=== PATIENT | female | born 1970 | race Caucasian/White ===

== ENCOUNTER 2017-09-12 09:36 | Inpatient (IN) | payer OTHER ==
--- NOTE | 2017-09-07 17:15 | Pre-op HX & Phy Repo 2 SIG ---
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 The patient developed granulomatous colitis in 1988. She has never had Crohn's disease of the small intestine. In that year 1988 she underwent proctocolectomy and Freida ileostomy. Four years later in 1992, in [place], she underwent conversion of her conventional ileostomy to a Mulligan continent intestinal reservoir. In 1994 in [place] she underwent repair of a pouch fistula. Approximately one year ago, without any antecedent symptoms, she developed another fistula draining to the right of the stoma and inferior to the stoma. It drains a small amount of gas and fecal material, but sometimes a large amount pours out. She intubates her pouch frequently to empty it and control the fistula. She used to intubate three times per day, now at least six times per day. She has no difficulty inserting her drainage catheter during intubation. At the same time as the patient developed the onset of her enterocutaneous fistula, she also developed incontinence of stool and gas from her stoma and this is continuing to happen daily. The patient underwent CT scan of abdomen and pelvis on 07/24/2017. It revealed some prolapse through the stoma and a short-segment stricture just proximal to the pouch as well as chronic inflammation of the pouch. Also noted was a possible left hydrosalpinx. The patient has taken Humira started in November 2016, but discontinued in mid July because it provided no benefit at all. She uses occasional Imodium to try to limit her incontinence. The patient underwent an endoscopy on 09/28/2016 of her pouch revealing circumferential ulceration at the anastomosis of the small bowel to the pouch. The pouch itself and the ilium proximal to the anastomosis looked healthy without any other areas of inflammation. The patient is scheduled to undergo pouch endoscopy and preparation for surgery, which will include laparotomy and hopefully repair of the fistula and creation of a new valve with preservation of her Mulligan continent ileostomy pouch. MEDICATIONS: Occasional Imodium. ALLERGIES: Morphine causes severe pruritus and she is allergic to sulfa. OPERATIONS: Only the above including endometriosis of the right ovary found at the time of her colectomy in 1988. PHYSICAL EXAMINATION: GENERAL: The patient is 5 foot 3 inches, 123 pounds. [place] and will be examined upon arrival and dictated separately. IMPRESSION: 1. 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 2. Malfunctioning Mulligan continent ileostomy with incontinence. 3. History of granulomatous colitis. 4. STATUS POST MULTIPLE ABDOMINAL OPERATIONS: 1. Proctocolectomy and Freida ileostomy and right oophorectomy for endometriosis in 1988. 2. Mulligan continent ileostomy in 1992. 3. Laparotomy with repair of fistula involving Mulligan continent ileostomy in 1994. DISCUSSION: I have had a full discussion with the patient regarding the nature of her condition and the surgical options. These include repair of the fistula and creating a new valve preserving the existing pouch and possibly relocating the stoma to the left side. A second option is to resect her failed Mulligan continent ileostomy and create a new Mulligan pouch if she has enough intestine and there is no evidence of Crohn's disease. The third option is to resect her pouch and create a conventional Freida ileostomy again which she strongly wants to avoid as she had difficulties with her ileostomy appliance when she had this. The patient will be admitted and undergo insertion of a dual lumen PICC line, intravenous hydration concomitant with her bowel prep, insertion of a catheter into her pouch for continuous drainage, and preoperative intravenous antibiotics and subcutaneous heparin. I have had a full discussion with the patient regarding the nature of the surgery, options, and risks including bleeding, infection, injury to adjacent structures or organs, additional problems that could develop with her revised pouch or new pouch including slipped valve or fistula of pouch or valve or other issues with the pouch function. I will have another discussion in person when the patient arrives from [place] state and all questions will be answered. Dane Cancino M.D. DR: Yousif JOB#: [id number] CC: SAÚL
[~2017-09-12] VITALS: Ht 160 cm; Wt 56.7 kg
[2017-09-12 10:05] VITALS: BP 121/89
[2017-09-12 11:16] LABS: BASOPHILS % (AUTO) 2.1 % (0.0-2.0); EOSINOPHILS % (AUTO) 1.7 % (0.0-3.0); LYMPHOCYTES % (AUTO) 13.4 % (20.0-45.0); MEAN CORPUSCULAR HEMOGLOBIN 27.4 PG (27.0-31.0); MEAN CORPUSCULAR HGB CONC 31.2 G/DL (32.0-36.0); MEAN CORPUSCULAR VOLUME 88 FL (80-99); MEAN PLATELET VOLUME 7.8 FL (6.5-10.1); MONOCYTES % (AUTO) 14.1 % (1.0-10.0); NEUTROPHILS % (AUTO) 68.7 % (45.0-75.0); PLATELET COUNT 301 K/UL (150-450); RED BLOOD COUNT 5.27 M/UL (4.20-5.40); RED CELL DISTRIBUTION WIDTH 15.7 % (11.6-14.8); WHITE BLOOD COUNT 4.5 K/UL (4.8-10.8)
[2017-09-12 11:32] LABS: PROTHROMBIN TIME 10.7 SEC (9.30-11.50)
[2017-09-12 11:33] LABS: ALANINE AMINOTRANSFERASE 22 U/L (12-78); ALBUMIN/GLOBULIN RATIO 0.6 (1.0-2.7); ANION GAP 9 mmol/L (5-15); ASPARTATE AMINO TRANSFERASE 32 U/L (15-37); CARBON DIOXIDE 28 MMOL/L (21-32); CHLORIDE 101 MMOL/L (98-107); CREATININE 0.7 MG/DL (0.55-1.30); GLOMERULAR FILTRATION RATE > 60 mL/min (>60); POTASSIUM 3.7 MMOL/L (3.5-5.1); SODIUM 138 MMOL/L (136-145); TOTAL PROTEIN 8.1 G/DL (6.4-8.2)
[2017-09-12 11:59] VITALS: BP 115/82
[2017-09-12] MEDS: Neomycin Sulfate 500mg Tab ORAL SCH ×3 (12:11→20:09)
[2017-09-12 12:44] LABS: KETONES,URINE 2+ (NEGATIVE); LEUKOCYTE ESTERASE ,URINE 1+ (NEGATIVE); NITRITE,URINE NEGATIVE (NEGATIVE); PH,URINE 5 (4.5-8.0); PROTEIN,URINE NEGATIVE (NEGATIVE); UROBILINOGEN,URINE NORMAL MG/DL (0.0-1.0)
[2017-09-12 12:46] LABS: APPEARANCE,URINE SLIGHTLY CLOUDY
--- NOTE | 2017-09-12 12:53 | Pre-Procedure Note/Attestation ---
Pre-Procedure Note/Attestation Complete Prior to Procedure Planned Procedure: not applicable Procedure Narrative: Mulligan Continent Ileostomy pouch endoscopy Indications for Procedure Pre-Operative Diagnosis: Enterocutaneous fistula of Mulligan Continent Ileostomy and prolapse of nipple valve Attestation I attest that I discussed the nature of the procedure; its benefits; risks and complications; and alternatives (and the risks and benefits of such alternatives ), prior to the procedure, with the patient (or the patient's legal plastic products sales representative). I attest that, if there was a reasonable possibility of needing a blood transfusion, the patient (or the patient's legal plastic products sales representative) was given the [facility] standardized written summary, pursuant to the [place] Blood Safety Act ([place] Health and Safety Code # 1645, as amended). I attest that I re-evaluated the patient just prior to the surgery and that there has been no change in the patient's H&P, except as documented below:none ROLF NELSON Sep 12, 2017 12:53
[2017-09-12 13:02] LABS: BACTERIA,URINE FEW /HPF; SQUAMOUS EPITHELIAL CELL,UR FEW /LPF (NONE/OCC)
--- NOTE | 2017-09-12 13:02 | General Progress Note ---
Progress Note Progress Note H&P dictated. Examination reveals total prolapse of the Mulligan Continent Ileostomy pouch nipple valve, and 2 fistula openings draining stool adjacent to the stoma (6:00 and 9:00). Pouch endoscopy shows healthy pouch and afferent bowel anastomosis. WBC 4500 Hgb 14.5 Platelets 301,000 Albumin low 3.0 Ferritin 55 (8-388) Plan: 28Foley to Mulligan pouch to continuous drainage; PIC line; bowel prep; IV hydration Iron panel/B12 level in AM pre-op IV antibiotics and SQ heparin pre-op Full discussion with patient. ROLF NELSON Sep 12, 2017 13:02
--- NOTE | 2017-09-12 14:50 | Anethesia Preoperative Eval ---
Anesthesia Pre-op PMH/ROS General Date of Evaluation: Sep 12, 2017 Time of Evaluation: 14:14 Anesthesiologist: Harry ASA Score: ASA 2 Mallampati Score Class I : Soft palate, uvula, fauces, pillars visible Class II: Soft palate, uvula, fauces visible Class III: Soft palate, base of uvula visible Class IV: Only hard plate visible Mallampati Classification: Class I Surgeon: Barak Diagnosis: Malfxn Mulligan Continent Ileostomy pouch Surgical Procedure: Mulligan Continent Ileostomy pouch Anesthesia History: none Family History: no anesthesia problems Allergies: Coded Allergies: MORPHINE (Verified Allergy, Intermediate, pruritis, 09/12/17) SULFA (SULFONAMIDE ANTIBIOTICS) (Verified Allergy, Intermediate, vomiting , 09/12/17) Medications: see eMAR Past Medical History Gastrointestinal/Genitourinary: Reports: other - Crohns Disease Neurologic/Psychiatric: Reports: depression/anxiety PSxH Narrative: Multiple bowel Sx Anesthesia Pre-op Phys. Exam Physician Exam Last Vital Signs Date Time Temp Pulse Resp B/P (MAP) Pulse Ox O2 Delivery O2 Flow Rate FiO2 09/12/17 13:11 98.0 09/12/17 11:59 101 20 115/82 94 Room Air Constitutional: NAD Neurologic: CN 2-12 intact Cardiovascular: RRR Respiratory: CTA Gastrointestinal: S/NT/ND Airway Exam Mallampati Score: Class I MO: full ROM: full Teeth: intact Anesthesia Pre-op A/P Labs Hematology Test 09/12/17 10:50 White Blood Count 4.5 K/UL (4.8-10.8) L Red Blood Count 5.27 M/UL (4.20-5.40) Hemoglobin 14.5 G/DL (12.0-16.0) Hematocrit 46.3 % (37.0-47.0) Mean Corpuscular Volume 88 FL (80-99) Mean Corpuscular Hemoglobin 27.4 PG (27.0-31.0) Mean Corpuscular Hemoglobin Concent 31.2 G/DL (32.0-36.0) L Red Cell Distribution Width 15.7 % (11.6-14.8) H Platelet Count 301 K/UL (150-450) Mean Platelet Volume 7.8 FL (6.5-10.1) Neutrophils (%) (Auto) 68.7 % (45.0-75.0) Lymphocytes (%) (Auto) 13.4 % (20.0-45.0) L Monocytes (%) (Auto) 14.1 % (1.0-10.0) H Eosinophils (%) (Auto) 1.7 % (0.0-3.0) Basophils (%) (Auto) 2.1 % (0.0-2.0) H Coagulation Test 09/12/17 10:50 Prothrombin Time 10.7 SEC (9.30-11.50) Prothromb Time International Ratio 1.0 (0.9-1.1) Activated Partial Thromboplast Time 32 SEC (23-33) Chemistry Test 09/12/17 10:50 Sodium Level 138 MMOL/L (136-145) Potassium Level 3.7 MMOL/L (3.5-5.1) Chloride Level 101 MMOL/L (98-107) Carbon Dioxide Level 28 MMOL/L (21-32) Anion Gap 9 mmol/L (5-15) Blood Urea Nitrogen 3 mg/dL (7-18) L Creatinine 0.7 MG/DL (0.55-1.30) Estimat Glomerular Filtration Rate > 60 mL/min (>60) Glucose Level 111 MG/DL (74-106) H Calcium Level 9.0 MG/DL (8.5-10.1) Ferritin 55 NG/ML (8-388) Total Bilirubin 0.6 MG/DL (0.2-1.0) Aspartate Amino Transf (AST/SGOT) 32 U/L (15-37) Alanine Aminotransferase (ALT/SGPT) 22 U/L (12-78) Alkaline Phosphatase 107 U/L (46-116) Total Protein 8.1 G/DL (6.4-8.2) Albumin 3.0 G/DL (3.4-5.0) L Globulin 5.1 g/dL Albumin/Globulin Ratio 0.6 (1.0-2.7) L Urine Test Test 09/12/17 12:24 Urine HCG, Qualitative Negative Risk Assessment & Plan Assessment: ASA 2 Plan: GA Status Change Before Surgery: No Pre-Antibiotics Drug: Shaheen Reed MD Sep 12, 2017 14:50
--- NOTE | 2017-09-12 15:00 | Pre-op HX & Phy Repo 2 SIG ---
DATE OF ADMISSION: 09/12/2017 HISTORY: The patient has now [place] and is examined. PHYSICAL EXAMINATION: GENERAL: She is well developed and well nourished, in no distress. VITAL SIGNS: Her heart rate is slightly elevated at 100, blood pressure 121/89, afebrile, 5 foot 3 inches and approximately 123 pounds. HEENT: Within normal limits except for some missing dentition. LUNGS: Clear. HEART: Regular rhythm. BREASTS: Without masses. ABDOMEN: Soft and flat. There is a long midline scar. The stoma of the Mulligan continent ileostomy pouch is in the right lower quadrant with complete prolapse or eversion of the nipple valve. There are two fistula tract openings, one at 6 o'clock just inferior to the stoma and one at 9 o'clock at the lateral angle of the stoma. These are draining small amounts of stool. There is a mild parastomal hernia, but no incisional hernia. Pelvic has been negative per primary care physician recently. RECTAL: Status post proctectomy. EXTREMITIES: Without edema or varicosities. Pulses 3+ femoral to pedal bilaterally. NEUROLOGIC: Physiologic. IMPRESSION: 1. Enterocutaneous fistula involving Mulligan continent ileostomy pouch 2. Malfunctioning Mulligan continent ileostomy with incontinence and complete prolapse of the nipple valve. 3. Parastomal hernia of Mulligan continent ileostomy. 4. History of granulomatous colitis. 5. Status post multiple abdominal operations. 5.1. Proctocolectomy and Freida ileostomy (and right oophorectomy for endometriosis) in 1988. 5.2. Mulligan continent ileostomy in 1992. 5.3. Laparotomy with repair of fistula involving Mulligan continent ileostomy in 1994. PLAN AND DISCUSSION: The patient has undergone endoscopy of her Mulligan pouch without requiring any anesthesia or sedation. It shows that the pouch is healthy without any inflammation or ulcerations. The anastomosis of the afferent ilium to the pouch appears normal. Retroflex views revealed absence of the nipple valve due to it being in a completely prolapsed position external to the stoma. It could not be manually reduced but was not edematous or ischemic. The patient underwent insertion of an indwelling Mulligan pouch catheter to continuous gravity drainage and will have insertion of a dual lumen PICC line. She will receive intravenous hydration concomitant to her bowel prep and continuous decompression of her continent ileostomy pouch. She will receive intravenous antibiotics and preoperative subcutaneous heparin. In view of her laboratory studies revealing a low serum albumin of 3 and a very low ferritin of 55, normal range 8 to 388, despite her not being anemic, she will likely require replacement with Venofer postoperatively and may need total parenteral nutrition to support the healing process depending on what is performed. I have had a full discussion with the patient regarding the nature of her conditions and the surgical options. These include takedown of the pouch with repair of the fistula and creation of a new valve and stoma possibly relocating to the left side with repair of the fistula tracts. The second option will be to resect her Mulligan continent ileostomy and create a new pouch if she has enough intestine and there is no evidence of Crohn's disease. The third option discussed is resection of her pouch with creation of a conventional ileostomy again, which she strongly wants to avoid because of her difficulties with it years ago. I have had a full discussion with the patient regarding the nature of the surgery, alternatives and risks including bleeding, infection, injury to adjacent structures or organs, additional problems that could develop with the revised pouch or a newly created pouch including recurrent fistula or slipped valve or other issues that could require additional surgery. All questions have been answered. The patient understands and agrees to proceed. Dane Cancino M.D. DR: BENNY JOB#: [id number] CC: SAÚL
--- NOTE | 2017-09-12 15:32 | Diagnostic Imaging Report ---
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 The left upper extremity was prepped with alcohol. All elements of maximal sterile barrier technique were followed including usage of a cap, mask, sterile gown, sterile gloves, hand hygiene and a large sterile sheet. Sonographic evaluation of the upper extremity was performed demonstrating a patent and compressible brachial vein. Access was obtained under real-time ultrasound guidance and digital image was saved and archived. An .018 wire was introduced. Needle exchanged for a 5 Palauan peel-away sheath. Measurements were obtained. A 5 Palauan dual-lumen Power PICC line catheter was cut to 15 cm and introduced over the wire. Peel-away sheath and wire were removed.Catheter was secured to the skin using 2-0 Prolene suture. Both ports aspirate and flush easily. Fluoroscopic Images show the tip of the catheter in the axillary vein. Attempts at passing the catheter beyond this were unsuccessful. Impression: Successful placement of an upper extremity midline catheter
--- NOTE | 2017-09-12 15:33 | Diagnostic Imaging Report ---
Indication: Dyspnea Comparison: None A single view chest radiograph was obtained. Findings: Bilateral pleural effusions are suspected worse on the left. Short catheter noted in the left upper arm with the tip terminating in the axillary vein. Bones are slightly osteopenic. Heart size is normal. The aortic arch appears to be right-sided. Findings may be confirmed by cross-sectional imaging. Impression: Bilateral pleural effusions larger on the left. Suspected right aortic arch.
--- NOTE | 2017-09-12 15:41 | General Progress Note ---
Progress Note Progress Note CXR reveals small bilateral pleural effusions ?? etiology PIC line did not go centrally and I was not called and it was left in axillary vein - discussed with Radiologist. May need new PIC line post-op if TPN is needed ROLF NELSON Sep 12, 2017 15:41
--- NOTE | 2017-09-12 15:45 | Procedure Note ---
DATE OF PROCEDURE: 09/12/2017 ENDOSCOPY PROCEDURE REPORT ENDOSCOPIST: Dane Cancino M.D. PRE-ENDOSCOPY DIAGNOSES: 1. Enterocutaneous fistula involving Mulligan continent ileostomy pouch 2. Malfunctioning Mulligan continent ileostomy with incontinence and valve prolapse. 3. History of granulomatous colitis. 4. Status post multiple abdominal operations including proctocolectomy and Freida ileostomy in 1988, Mulligan continent ileostomy in 1992, and repair of fistula involving Mulligan pouch in 1994. POST-ENDOSCOPY DIAGNOSES: 1. Enterocutaneous fistula involving Mulligan continent ileostomy pouch 2. Malfunctioning Mulligan continent ileostomy with incontinence and valve prolapse. 3. History of granulomatous colitis. 4. Status post multiple abdominal operations including proctocolectomy and Freida ileostomy in 1988, Mulligan continent ileostomy in 1992, and repair of fistula involving Mulligan pouch in 1994. ENDOSCOPY PERFORMED: Mulligan continent ileostomy pouch endoscopy. FINDINGS: Complete prolapse of the valve through the stoma with two janina- stomal fistula tracts and a normal-appearing pouch. DESCRIPTION OF PROCEDURE: The patient was positioned supine in the GI lab without requiring any anesthesia or sedation. First, I inserted a 28-Haitian Cheung through the everted prolapsed valve into the pouch and irrigated it clear. I then used a GIF-P140 endoscope and negotiated the tract into the pouch. The pouch was distensible and the mucosa was normal with no significant inflammation or ulcerations. The afferent anastomosis appeared normal as did the afferent bowel for a limited distance. Retroflex views revealed fistula tract openings adjacent to the base of the valve but no valve because it has prolapsed through the stoma. After removing the endoscope, I reinserted the 28-Haitian Cheung and emptied the contents of the pouch, secured it to the skin with tape, and connected it to a gravity drainage bag. The patient will be prepared for surgery. The patient tolerated the endoscopy well. Dane Cancino M.D. DR: HIEU JOB#: [id number] CC: SAÚL
[2017-09-12 16:14] VITALS: BP 116/82
--- NOTE | 2017-09-12 16:47 | Diagnostic Imaging Report ---
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 The right upper extremity was prepped with alcohol. All elements of maximal sterile barrier technique were followed including usage of a cap, mask, sterile gown, sterile gloves, hand hygiene and a large sterile sheet. Sonographic evaluation of the upper extremity was performed demonstrating a patent and compressible brachial vein. Access was obtained under real-time ultrasound guidance (with utilization of sterile gel and sterile probe cover) and digital image was saved and archived. An .018 wire was introduced. Needle exchanged for a 5 Gabonese peel-away sheath. Measurements were obtained. A 5 Gabonese dual-lumen Power PICC line catheter was cut to 35 cm and introduced over the wire. Peel-away sheath and wire were removed.Catheter was secured to the skin using 2-0 Prolene suture. Both ports aspirate and flush easily. Fluoroscopic Images show distal tip in the superior vena cava. Total fluoroscopic time 0.9 minutes. Impression: Successful placement of an upper extremity PICC line catheter
[2017-09-12] MEDS ORDERED: D5 1/2NS w/KCl 20mEq 1,000 ML IV SCH (18:00)
[2017-09-12 20:00] VITALS: BP 115/82
[2017-09-12] MEDS: D5 1/2NS w/KCl 20mEq 1,000 ML IV SCH (20:00)
[2017-09-12] MEDS ORDERED: Zolpidem 5mg tab ORAL PRN (21:00)
[2017-09-13] VITALS (13 sets, daily range): BP systolic 96–115; BP diastolic 65–81
[2017-09-13] MEDS: Ampicillin/Sulbactam Sod 3 GM in NS 110 ML IV SCH ×4 (00:03→18:23)
[2017-09-13 05:24] LABS: IRON 22 ug/dL (50-175); TOTAL IRON BINDING CAPACITY 244 ug/dL (250-450)
[2017-09-13] MEDS ORDERED: Heparin 5000 units/ml inj SUBQ ONE ×2 (05:30)
[2017-09-13] MEDS: D5 1/2NS w/KCl 20mEq 1,000 ML IV SCH (05:32)
[2017-09-13] MEDS ORDERED: NeoSporin Gu Irrig 1ml Amp IRRIG ONE (07:06)
[2017-09-13] MEDS ORDERED: Bacitracin 50000 Units Vial ONE (07:06)
--- NOTE | 2017-09-13 07:14 | Pre-Procedure Note/Attestation ---
Pre-Procedure Note/Attestation Complete Prior to Procedure Planned Procedure: not applicable Procedure Narrative: Repair of enterocutaneous fistula and prolapsed valve of Mulligan Continent Ileostomy, possible new Mulligan Pouch, possible Freida ileostomy Indications for Procedure Pre-Operative Diagnosis: Enterocutaneous fistula of Mulligan Continent Ileostomy and prolapse of nipple valve Attestation I attest that I discussed the nature of the procedure; its benefits; risks and complications; and alternatives (and the risks and benefits of such alternatives ), prior to the procedure, with the patient (or the patient's legal guest experience representative). I attest that, if there was a reasonable possibility of needing a blood transfusion, the patient (or the patient's legal guest experience representative) was given the [place] [facility] standardized written summary, pursuant to the [place] Blood Safety Act ([place] Health and Safety Code # 1645, as amended). I attest that I re-evaluated the patient just prior to the surgery and that there has been no change in the patient's H&P, except as documented below:none ROLF NELSON Sep 13, 2017 07:14
[2017-09-13] MEDS ORDERED: Metoclopramide 10mg/2ml Inj ONE ×2 (07:27)
[2017-09-13] MEDS ORDERED: LR 1000ml ONE ×2 (07:27)
[2017-09-13] MEDS ORDERED: Midazolam 2mg/2ml Inj ONE ×2 (07:27)
[2017-09-13] MEDS ORDERED: Propofol 200mg/20ml IV ONE ×2 (07:27)
[2017-09-13] MEDS ORDERED: fentaNYL 100 mcg/2 mL IV ONE ×2 (07:27)
[2017-09-13] MEDS ORDERED: Zemuron 50mg/5ml Inj IV ONE ×2 (07:27)
[2017-09-13] MEDS ORDERED: Sterile Water Irrig 1000ml IRRIG ONE ×2 (07:27)
[2017-09-13] MEDS ORDERED: Dexamethasone 4mg/ml vial ONE ×2 (07:27)
[2017-09-13] MEDS ORDERED: NS Irrig 1000ml ONE ×3 (07:27→10:56)
[2017-09-13] MEDS ORDERED: Lidocaine 1% MPF 10mg/ml 5ml ONE ×2 (07:27)
[2017-09-13] MEDS ORDERED: LORazepam Inj 2mg/ml 1ml IV PRN (08:15)
[2017-09-13] MEDS ORDERED: Metoclopramide 10mg/2ml Inj IVP PRN (08:15)
[2017-09-13] MEDS ORDERED: Midazolam 2mg/2ml Inj IVP PRN (08:15)
[2017-09-13] MEDS ORDERED: Hydromorphone 0.5mg/0.5ml inj IVP PRN (08:15)
[2017-09-13] MEDS ORDERED: fentaNYL 100 mcg/2 mL IV PRN (08:15)
[2017-09-13] MEDS ORDERED: DiphenhydrAMINE 50mg/ml Inj IVP PRN ×2 (08:15→12:30)
[2017-09-13] MEDS ORDERED: LR 1000ml 1,000 ML IVLG SCH (08:15)
[2017-09-13] MEDS ORDERED: NS 500ML IV ONE (10:56)
[2017-09-13] MEDS ORDERED: Tubing IV Secondary IV ONE (10:56)
--- NOTE | 2017-09-13 11:15 | Immediate Post-Op Evaluation ---
Immediate Post-Op Evalulation Immediate Post-Op Evalulation Procedure: Revision barnettt continent ileostomy Date of Evaluation: Sep 13, 2017 Time of Evaluation: 11:14 IV Fluids: 2.6 Blood Products: 0 Estimated Blood Loss: 100 Urinary Output: 300 Blood Pressure Systolic: 96 Blood Pressure Diastolic: 69 Pulse Rate: 119 Respiratory Rate: 15 O2 Sat by Pulse Oximetry: 92 Temperature (Fahrenheit): 98.6 Pain Score (1-10): 0 Nausea: No Vomiting: No Complications 0 Patient Status: awake, reacts, patent, none Hydration Status: adequate Drug: On floor JOSH Parker M.D. Sep 13, 2017 11:15
--- NOTE | 2017-09-13 11:16 | Brief Operative Note ---
Immediate Post Operative Note Operative Note Pre-op Diagnosis: Enterocutaneous fistula of Mulligan Continent Ileostomy and prolapse of nipple valve Procedure: resection of Mulligan continent ileostomy with fistula, creation of Freida ileostomy Post-op Diagnosis: same + shortened small intestine (11 feet) Post-op Diagnosis: same as pre-op Findings: consistent w/pre-op dx studies Surgeon: issac Process Safety Engineering Technologist: roxanna Anesthesiologist: mayra Specimen: yes - Mulligan pouch Complications: none Condition: stable Fluids: see anesthesia record Estimated Blood Loss: volume - 100ml Drains: ANDREW - in abdominal wall at prior stoma/fistula site Implant(s) used?: No ROLF NELSON Sep 13, 2017 11:16
[2017-09-13] MEDS ORDERED: PCA HYDROmorphone 1mg/ml 30 ML IV PRN (12:15)
[2017-09-13] MEDS ORDERED: Rate Change PCA 1 Each MISC PRN (12:15)
[2017-09-13] MEDS ORDERED: Naloxone 0.4mg/ml Inj IVP PRN (12:15)
[2017-09-13] MEDS ORDERED: Acetaminophen 650mg/20.3ml ORAL PRN (12:30)
[2017-09-13] MEDS ORDERED: PCA Education Pamphlet MISC ONE (14:00)
[2017-09-13] MEDS: D5 1/4NS w/KCl 20mEq 1,000 ML IV SCH ×2 (15:33→23:20)
[2017-09-13] MEDS: LORazepam 1mg tab SL PRN ×2 (15:36→21:26)
--- NOTE | 2017-09-13 15:43 | Cardiology Report ---
APPROVED REPORT EKG Measurement Heart [id number] Normal sinus rhythm Normal ECG
--- NOTE | 2017-09-13 16:22 | General Progress Note ---
Progress Note Progress Note Awake and alert, VSS with P 100. 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 Imp. ROLF Kulkarni Sep 13, 2017 16:22
[2017-09-13] MEDS: PCA shift volume MISC SCH (19:27)
--- NOTE | 2017-09-13 20:30 | Operative Note - Dictated ---
DATE OF OPERATION: 09/13/2017 SURGEON: Dane Cancino M.D. NOTEREADER: Herman Eng M.D. ANESTHESIOLOGIST: Carole Grant M.D. TYPE OF ANESTHESIA: General endotracheal. PREOPERATIVE DIAGNOSES: 1. 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 2. 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 3. History of granulomatous colitis. 4. Status post multiple abdominal operations. 4.1. Proctocolectomy and Freida ileostomy in 1988. 4.2. Mulligan continent ileostomy in 1992. 4.3. Laparotomy with repair of fistula involving Mulligan continent ileostomy in 1994. POSTOPERATIVE DIAGNOSES: 1. 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 2. 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 3. History of granulomatous colitis. 4. Status post multiple abdominal operations. 4.1. Proctocolectomy and Freida ileostomy in 1988. 4.2. Mulligan continent ileostomy in 1992. 4.3. Laparotomy with repair of fistula involving Mulligan continent ileostomy in 1994. OPERATION PERFORMED: Resection of Mulligan continent ileostomy and creation of conventional Freida ileostomy. DESCRIPTION OF PROCEDURE: The patient was taken to the operating room and under general endotracheal anesthesia with sequential compression device stockings and Cheung catheter in place and having received intravenous antibiotics and subcutaneous heparin, the patient was prepped and draped in the usual fashion. The stoma of the Mulligan continent ileostomy pouch was in the right lower quadrant with complete eversion / prolapse of the nipple valve. There were 2 fistula sites medially adjacent to the stoma one at 6 o'clock and one at 9 o'clock. Lacrimal duct probes were placed through the fistulous openings and went directly into the ileal reservoir pouch. The stoma with the prolapsed valve was covered with an antibiotic soaked lap sponge. Previous midline incision was reopened from just above the umbilicus to the pubis excising the skin scar. There were no adhesions to the anterior abdominal wall and minimal interloop adhesions. The pouch was adherent to the bladder and parietes in the pelvis. The small bowel was mobilized from ligament of Treitz down to the pouch and the pouch was mobilized out of the pelvis protecting the bladder and ureters. It was clear that to fully mobilize the pouch, I had to take down the stoma. A transversely oriented elliptical incision was made dissecting through the abdominal wall and bringing the stoma with the prolapsed valve into the abdomen. A 28-Armenian Cheung catheter was placed through the prolapsed valve into the pouch and the afferent bowel manually occluded. The pouch was distended with 400 mL of saline and it was clear there was a stricture at the mid pouch. The pouch was decompressed and the catheter was removed. The mobilization of the stoma and access segment opened the fistula tract clearly into the pouch. Because of all the inflammation and scarring due to the fistulae, it was clearly not possible to repair the two fistulae and reconstruct the valve. In view of the stricture barely admitting a fingertip in the mid pouch, I decided to resect just proximal to this dividing the narrowed pouch with the JOSE ALBERTO-75 and dividing the mesentery close to the bowel ligating with #0 silk. The pouch was taken off the field and oriented for the pathologist. There was no evidence of Crohn disease of the small intestine, but there was not very much small intestine evident. I measured it from ligament of Treitz to the remaining segment of the pouch and there was approximately 11 feet of small bowel. This precluded creating a new pouch and I felt that to create a new pouch, we would run the risk of it failing at some point and needing to be resected leaving the patient with a likely short-bowel syndrome. Accordingly, it was evident that the patient would require a conventional Freida ileostomy. The small portion of retained pouch was preserved and the bowel leading to it measured approximately 10 cm and was able to be fashioned into a conventional stoma. First, I closed the right lower quadrant abdominal wall defect having placed a Betadine soaked Ray-Emerson into the subcutaneous tissues of the abdominal wall during the bowel dissection. I closed the fascia with interrupted, inverted [id number] #0 Prolene sutures in a longitudinal orientation. I placed a small Camron-Tavarez drain through a separate stab wound inferior and sutured to the skin with a 2-0 silk because of the potential space at the location presence of the fistula. Subcutaneous tissues including deep dermal tissues were closed with interrupted 2-0 Vicryl and skin closed with brannon and interrupted vertical mattress 2-0 nylon sutures. Then, at an appropriate location high in the left lower quadrant, a circular disc of skin was excised and with a cruciate incision in the fascia a two-fingerbreadth abdominal wall hiatus was created. I could not make the stoma on the right side because of the prior continent ileostomy stoma abdominal wall closure precluding placement on that side as this stoma was higher than usual. The stapled end of the ileum was brought through the left lower quadrant abdominal wall hiatus and the ileum anchored to the peritoneum with two sutures of 3-0 silk. Then the staple line excised and the stoma primarily matured with interrupted 2-0 chromic to create an everted Freida ileostomy. It was well perfused and the mesentery was oriented cephalad. The abdominal cavity was carefully inspected and hemostasis was secure. The upper abdomen was fairly well sealed from adhesions and prior gastrostomy, but the liver and gallbladder appeared normal. The uterus was somewhat atrophic and the adnexae obscured by scar. Throughout the procedure, the wound edges had been protected with antibiotic soaked lap sponges and antibiotic irrigation was used throughout the procedure. The midline fascia was closed in one layer with continuous #1 Prolene starting at both ends and inverting the knots, subcutaneous tissues again irrigated with antibiotic solution, and the skin closed with brannon. An ileostomy appliance was cut to fit and placed over the stoma followed by dry sterile dressings. Final sponge and needle counts were correct. The patient tolerated the procedure well and left the operating room in stable condition. Dane Cancino M.D. DR: HIEU JOB#: [id number] CC: [id number]
[2017-09-14] VITALS: BP 124/88
[2017-09-14] MEDS: Ampicillin/Sulbactam Sod 3 GM in NS 110 ML IV SCH ×4 (00:09→17:30)
[2017-09-14] MEDS: LORazepam 1mg tab SL PRN ×3 (01:31→21:51)
[2017-09-14 04:00] VITALS: BP 112/87
[2017-09-14 04:34] LABS: MEAN CORPUSCULAR HEMOGLOBIN 27.7 PG (27.0-31.0); MEAN CORPUSCULAR VOLUME 96 FL (80-99); PLATELET COUNT 188 K/UL (150-450); RED BLOOD COUNT 3.44 M/UL (4.20-5.40); RED CELL DISTRIBUTION WIDTH 16.6 % (11.6-14.8); WHITE BLOOD COUNT 8.1 K/UL (4.8-10.8)
[2017-09-14 04:51] LABS: ANION GAP 7 mmol/L (5-15); CARBON DIOXIDE 18 MMOL/L (21-32); CHLORIDE 108 MMOL/L (98-107); CREATININE 0.4 MG/DL (0.55-1.30); GLOMERULAR FILTRATION RATE > 60 mL/min (>60); POTASSIUM 5.2 MMOL/L (3.5-5.1); SODIUM 133 MMOL/L (136-145)
[2017-09-14 05:17] LABS: CALCIUM < 5.0 MG/DL (8.5-10.1)
[2017-09-14 06:16] LABS: BASOPHILS % (AUTO) 0.7 % (0.0-2.0); MEAN CORPUSCULAR HEMOGLOBIN 26.9 PG (27.0-31.0); MEAN CORPUSCULAR HGB CONC 29.7 G/DL (32.0-36.0); MEAN CORPUSCULAR VOLUME 90 FL (80-99); MEAN PLATELET VOLUME 6.5 FL (6.5-10.1); MONOCYTES % (AUTO) 13.5 % (1.0-10.0); NEUTROPHILS % (AUTO) 81.8 % (45.0-75.0); PLATELET COUNT 258 K/UL (150-450); RED BLOOD COUNT 4.37 M/UL (4.20-5.40); RED CELL DISTRIBUTION WIDTH 15.5 % (11.6-14.8); WHITE BLOOD COUNT 9.4 K/UL (4.8-10.8)
[2017-09-14 06:23] LABS: ANION GAP 8 mmol/L (5-15); CALCIUM 7.9 MG/DL (8.5-10.1); CARBON DIOXIDE 28 MMOL/L (21-32); CHLORIDE 103 MMOL/L (98-107); CREATININE 0.6 MG/DL (0.55-1.30); GLOMERULAR FILTRATION RATE > 60 mL/min (>60); SODIUM 139 MMOL/L (136-145)
[2017-09-14] MEDS: PCA shift volume MISC SCH ×2 (07:00→19:17)
[2017-09-14 08:00] VITALS: BP 112/81
[2017-09-14] MEDS ORDERED: Dextrose 10% 1,000 ML IV PRN (08:30)
--- NOTE | 2017-09-14 08:35 | General Progress Note ---
Progress Note Progress Note AVSS with mild tachycardia. No dyspnea. Sleepy and mentally cloudy Chest - decreased expansion Cor - reg rhythm Abdomen distended, stoma pink, incisions clean, scant ANDREW drainage Urine 490/ 12 hrs Ileostomy 10cc bloody Hgb down 11.7 BMP - wnl Iron (pre-op) 22 (50-175) B12 991 Imp. Ileus Atelectasis Malnutrition present on admission Iron deficiency present on admission Plan: NPO Pulmonary toilet TPN Venofer D/C basal infusion of RN ASSESSMENT ROLF NELSON Sep 14, 2017 08:35
[2017-09-14] MEDS ORDERED: Phytonadione 10 mg/mL 1ml amp SUBQ SCH (09:00)
[2017-09-14 12:00] VITALS: BP 125/92
[2017-09-14] MEDS ORDERED: D5 1/4NS w/KCl 20mEq 1,000 ML IV SCH (12:00)
[2017-09-14] MEDS: PCA HYDROmorphone 1mg/ml 30 ML IV PRN (12:18)
[2017-09-14] MEDS ORDERED: Naloxone 0.4mg/ml Inj IVP PRN (12:20)
[2017-09-14] MEDS ORDERED: DiphenhydrAMINE 50mg/ml Inj IVP PRN (12:30)
[2017-09-14] MEDS ORDERED: Rate Change PCA 1 Each MISC PRN (12:30)
[2017-09-14] MEDS: D5 1/4NS w/KCl 20mEq 1,000 ML IV SCH ×2 (12:45→22:29)
--- NOTE | 2017-09-14 14:07 | Diagnostic Imaging Report ---
Indication: Dyspnea Comparison: 09/12/17 A single view chest radiograph was obtained. Findings: Bilateral pleural effusion suspected with groundglass opacities at the lung bases. PICC line is present. Heart size is normal. Pulmonary vascularity is mildly prominent centrally. Impression: PICC line in good position. Bilateral pleural effusions
[2017-09-14 16:00] VITALS: BP 116/83
[2017-09-14] MEDS: NovoLOG Insulin Flexpen SUBQ SCH (17:37)
[2017-09-14] MEDS: Albuterol ud Inhalation HHN SCH ×2 (17:45→18:26)
[2017-09-14 20:12] VITALS: BP 121/89
[2017-09-14] MEDS ORDERED: Fat Emulsion Iv 20% 240 ML in Tpn 1,560 ML IV SCH (21:00)
[2017-09-14] MEDS ORDERED: Fat Emulsion Iv 20% 240 ML in Tpn 1,800 ML IV ONE (21:00)
[2017-09-14] MEDS ORDERED: Fat Emulsion Iv 20% 250 ML IV SCH (21:00)
[2017-09-14] MEDS: Iron Sucrose 100 MG in NS 55 ML IV SCH (21:04)
[2017-09-15] VITALS: BP 127/79
[2017-09-15] MEDS: Ampicillin/Sulbactam Sod 3 GM in NS 110 ML IV SCH ×4 (00:01→17:30)
[2017-09-15] MEDS: NovoLOG Insulin Flexpen SUBQ SCH ×4 (00:07→17:45)
[2017-09-15] MEDS: Albuterol ud Inhalation HHN SCH ×4 (00:49→19:46)
[2017-09-15 04:00] VITALS: BP 132/82
[2017-09-15] MEDS: LORazepam 1mg tab SL PRN (04:04)
[2017-09-15 05:37] LABS: BASOPHILS % (AUTO) 2.2 % (0.0-2.0); EOSINOPHILS % (AUTO) 1.9 % (0.0-3.0); LYMPHOCYTES % (AUTO) 6.9 % (20.0-45.0); MEAN CORPUSCULAR HEMOGLOBIN 27.4 PG (27.0-31.0); MEAN CORPUSCULAR VOLUME 91 FL (80-99); MEAN PLATELET VOLUME 6.1 FL (6.5-10.1); MONOCYTES % (AUTO) 16.4 % (1.0-10.0); NEUTROPHILS % (AUTO) 72.6 % (45.0-75.0); PLATELET COUNT 213 K/UL (150-450); RED BLOOD COUNT 3.91 M/UL (4.20-5.40); RED CELL DISTRIBUTION WIDTH 15.4 % (11.6-14.8); WHITE BLOOD COUNT 4.6 K/UL (4.8-10.8)
[2017-09-15 05:50] LABS: MAGNESIUM 1.3 MG/DL (1.8-2.4); PHOSPHORUS 1.5 MG/DL (2.5-4.9)
[2017-09-15 05:51] LABS: ANION GAP 6 mmol/L (5-15); CALCIUM 7.9 MG/DL (8.5-10.1); CARBON DIOXIDE 30 MMOL/L (21-32); CHLORIDE 103 MMOL/L (98-107); CREATININE 0.6 MG/DL (0.55-1.30); GLOMERULAR FILTRATION RATE > 60 mL/min (>60); POTASSIUM 3.6 MMOL/L (3.5-5.1); SODIUM 139 MMOL/L (136-145)
[2017-09-15] MEDS: PCA shift volume MISC SCH ×2 (07:00→19:11)
[2017-09-15 07:55] VITALS: BP 125/90
[2017-09-15] MEDS: D5 1/4NS w/KCl 20mEq 1,000 ML IV SCH (08:45)
[2017-09-15] MEDS ORDERED: Ketorolac 30mg Inj IV STA (09:08)
--- NOTE | 2017-09-15 09:10 | General Progress Note ---
Progress Note Progress Note AVSS but tachycardia 115. Had some wheezing last night and started on HHN with Albuterol. 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 Ileus Tachycardia Bilateral small pleural effusions (present on admission) and wheezing Plan: NPO, TPN, replace Mg and P continue Cheung (pelvic dissection) add Toradol for analgesia Dr. Stapleton to consult re pulmonary status ROLF NELSON Sep 15, 2017 09:10
[2017-09-15] MEDS ORDERED: Ketorolac 30mg Inj IV PRN (09:15)
[2017-09-15] MEDS ORDERED: Potassium Phosphate 20 MM in NS 275 ML IV ONE (10:30)
[2017-09-15 12:00] VITALS: BP 125/86
--- NOTE | 2017-09-15 12:33 | 48 Hour Post Anesthesia Eval ---
Post Anesthesia Evaluation Procedure: Revision barnettt continent ileostomy Date of Evaluation: Sep 14, 2017 Airway: patent Nausea: No Vomiting: No Pain Intensity: 4 Hydration Status: adequate Cardiopulmonary Status: at baseline Mental Status/LOC: patient returned to baseline Follow-up Care/Observations: wheezing improved, patient still tachycardic, afebrile, pain continues to be uncontrolled on floor Post-Anesthesia Complications: 0 Follow-up care needed: N/A - further care as per primary team JOSH WHITE M.D. Sep 15, 2017 12:33
[2017-09-15] MEDS ORDERED: D5 1/4NS w/KCl 20mEq 1,000 ML IV SCH (12:45)
[2017-09-15] MEDS: PCA HYDROmorphone 1mg/ml 30 ML IV PRN (14:27)
[2017-09-15 16:00] VITALS: BP 127/95
[2017-09-15] MEDS: Ketorolac 30mg Inj IV PRN (16:41)
[2017-09-15] MEDS: Dyna-Hex 2% Top Sol 2oz TOPIC SCH (19:42)
[2017-09-15 20:45] VITALS: BP 131/88
[2017-09-15] MEDS: Fat Emulsion Iv 20% 240 ML in Tpn 1,560 ML IV SCH (21:02)
[2017-09-15] MEDS: Iron Sucrose 100 MG in NS 55 ML IV SCH (21:07)
--- NOTE | 2017-09-15 22:45 | Consultation ---
DATE OF CONSULTATION: 09/15/2017 PULMONARY CONSULTATION CONSULTING PHYSICIAN: Miles Stapleton M.D. CHIEF COMPLAINT: Short of breath and wheezing. HISTORY OF PRESENT ILLNESS: The patient came from out of town for an ostomy surgery by Dr. Cancino, which was performed on 09/12/2017. No pulmonary symptoms prior to surgery, but a chest x-ray did show a moderate left pleural effusion. She is a past cigarette smoker for about 1 pack per day for 20 years or so, but quit about 5 years ago. She has no other major health problems other than her inflammatory bowel disease and has had numerous abdominal surgeries. Following surgery, the patient has had some wheezing and congestion. She felt short of breath. She was given breathing treatments and is somewhat better today. There is no high fever. PAST MEDICAL HISTORY: As noted above is remarkable for inflammatory bowel disease and multiple abdominal operations. MEDICATIONS: Reviewed. ALLERGIES: Morphine and sulfonamide antibiotics. REVIEW OF SYSTEMS: Otherwise unremarkable. PHYSICAL EXAMINATION: VITAL SIGNS: Normal temperature. There has been no high fever. The blood pressure is normal. She has sinus tachycardia of about 117, respirations 18 today and yesterday respirations up to 20, saturation is 94 to 98 on 2 to 3 liters, but yesterday was as low as 92%. SKIN: Warm and dry. HEENT: The head is normocephalic. NECK: No jugular venous distention. CHEST: Mild wheezing. There are decreased breath sounds in the bases. CARDIAC: Rhythm is regular. Tachycardia. ABDOMEN: Soft with surgical dressing in place. EXTREMITIES: No edema. No signs of phlebitis. LABORATORY AND DIAGNOSTIC DATA: Laboratory studies and x-rays were reviewed. IMPRESSION: 1. Status post continent ostomy revision. 2. Postoperative wheezing and dyspnea. 3. Small bilateral pleural effusions. PLAN: The patient will undergo a venous duplex and echocardiogram. We will give a small dose of diuretics and continue inhaled bronchodilators. I will follow her closely with you in the hospital. Miles Stapleton M.D. DR: VIDAL JOB#: [id number] CC: Dane Cancino M.D.; Fax#: [phone]
[2017-09-16] VITALS: BP 135/72
[2017-09-16] MEDS: Ampicillin/Sulbactam Sod 3 GM in NS 110 ML IV SCH ×2 (00:06→06:00)
[2017-09-16] MEDS: Ketorolac 30mg Inj IV PRN ×2 (01:10→18:42)
[2017-09-16] MEDS: Albuterol ud Inhalation HHN SCH ×3 (01:27→13:07)
[2017-09-16 04:00] VITALS: BP 112/78
[2017-09-16 05:34] LABS: MAGNESIUM 1.8 MG/DL (1.8-2.4); PHOSPHORUS 2.6 MG/DL (2.5-4.9)
[2017-09-16 05:36] LABS: ANION GAP 7 mmol/L (5-15); BASOPHILS % (AUTO) 2.1 % (0.0-2.0); CARBON DIOXIDE 32 MMOL/L (21-32); CHLORIDE 106 MMOL/L (98-107); CREATININE 0.6 MG/DL (0.55-1.30); EOSINOPHILS % (AUTO) 4.3 % (0.0-3.0); GLOMERULAR FILTRATION RATE > 60 mL/min (>60); LYMPHOCYTES % (AUTO) 7.9 % (20.0-45.0); MEAN CORPUSCULAR HEMOGLOBIN 29.3 PG (27.0-31.0); MEAN CORPUSCULAR HGB CONC 33.3 G/DL (32.0-36.0); MEAN CORPUSCULAR VOLUME 88 FL (80-99); MONOCYTES % (AUTO) 18.3 % (1.0-10.0); NEUTROPHILS % (AUTO) 67.4 % (45.0-75.0); PLATELET COUNT 230 K/UL (150-450); RED BLOOD COUNT 3.96 M/UL (4.20-5.40); RED CELL DISTRIBUTION WIDTH 15.1 % (11.6-14.8); SODIUM 145 MMOL/L (136-145); WHITE BLOOD COUNT 3.6 K/UL (4.8-10.8)
[2017-09-16 06:03] LABS: POTASSIUM 2.7 MMOL/L (3.5-5.1)
[2017-09-16] MEDS ORDERED: D5 1/2NS w/KCl 40meq 1000ml 1,000 ML IV SCH (06:30)
[2017-09-16] MEDS: PCA shift volume MISC SCH (07:00)
[2017-09-16] MEDS: NovoLOG Insulin Flexpen SUBQ SCH ×5 (07:01→23:33)
[2017-09-16 08:00] VITALS: BP 122/85
[2017-09-16] MEDS ORDERED: Naloxone 0.4mg/ml Inj IVP PRN (08:45)
[2017-09-16] MEDS ORDERED: Rate Change PCA 1 Each MISC PRN (08:45)
--- NOTE | 2017-09-16 09:04 | General Progress Note ---
Progress Note Progress Note AVSS Respiratory symptoms resolved after Lasix diuresis per Dr. Stapleton Feels better with Toradol instead of PROC TECH. Has ambulated well Abdomen still mildly distended, incisions clean, stoma pink Urine 5700 Ileostomy 105 serosang ANDREW 10 WBC down 3600 Hgb 11.6 stable K 2.7 P/Mg - wnl Imp. Ileus Low WBC ? etiology; low K due to diuresis Plan: NPO D/C antibiotics Increase K in IV fluids f/u labs continue Cheung (pelvic dissection; diuresis ROLF NELSON Sep 16, 2017 09:04
[2017-09-16] MEDS: [UNRECOGNIZED DRUG - OTHER] IV SCH (09:11)
[2017-09-16] MEDS: D5 IV SCH (09:11)
[2017-09-16] MEDS: POTASSIUM CHLORIDE IV SCH (09:11)
[2017-09-16] MEDS ORDERED: Tubing IV Secondary IV ONE (09:42)
[2017-09-16 12:00] VITALS: BP 121/68
--- NOTE | 2017-09-16 12:10 | Pulmonology Progress Note ---
Assessment/Plan Assessment/Plan 1. Status post continent ostomy revision. 2. Postoperative wheezing and dyspnea. 3. Small bilateral pleural effusions. still SOB less wheezing BNP 200; echo ok check D Dimer K low; rx ordred cont HHN LE duplex Subjective Respiratory: Reports: shortness of breath Allergies: Coded Allergies: MORPHINE (Verified Allergy, Intermediate, pruritis, 09/12/17) SULFA (SULFONAMIDE ANTIBIOTICS) (Verified Allergy, Intermediate, vomiting , 09/12/17) Objective Last 24 Hour Vital Signs Date Time Temp Pulse Resp B/P (MAP) Pulse Ox O2 Delivery O2 Flow Rate FiO2 09/16/17 08:00 98.7 99 17 122/85 99 Room Air 09/16/17 08:00 18 09/16/17 07:13 Nasal Cannula 09/16/17 07:13 96 Nasal Cannula 3.0 32 09/16/17 07:13 Nasal Cannula 3.0 32 09/16/17 07:13 Nasal Cannula 09/16/17 04:00 98.5 94 19 112/78 93 Nasal Cannula 2.0 09/16/17 04:00 18 09/16/17 01:38 107 18 98 Nasal Cannula 3.0 32 09/16/17 01:27 108 20 95 Nasal Cannula 3.0 32 09/16/17 00:00 18 09/16/17 00:00 98.1 100 19 135/72 96 Room Air 09/15/17 20:45 98.0 113 20 131/88 95 Nasal Cannula 4.0 09/15/17 20:00 18 09/15/17 19:52 110 18 99 Nasal Cannula 3.0 32 09/15/17 19:44 97 Nasal Cannula 3.0 32 09/15/17 19:44 110 18 97 Nasal Cannula 3.0 32 09/15/17 19:44 Nasal Cannula 3.0 32 09/15/17 19:17 97.7 09/15/17 17:46 97.7 09/15/17 17:46 97.7 09/15/17 16:00 98.7 119 18 127/95 98 Nasal Cannula 2.0 09/15/17 14:42 18 09/15/17 14:41 18 09/15/17 13:14 Nasal Cannula 09/15/17 13:14 Nasal Cannula General Appearance: no acute distress Respiratory/Chest: decreased breath sounds Cardiovascular: normal rate Laboratory Tests 09/16/17 03:50: White Blood Count 3.6L, Red Blood Count 3.96L, Hemoglobin 11.6L, Hematocrit 34.8L, Mean Corpuscular Volume 88, Mean Corpuscular Hemoglobin 29.3, Mean Corpuscular Hemoglobin Concent 33.3, Red Cell Distribution Width 15.1H, Platelet Count 230, Mean Platelet Volume 7.0, Neutrophils (%) (Auto) 67.4, Lymphocytes (%) (Auto) 7.9L, Monocytes (%) (Auto) 18.3H, Eosinophils (%) (Auto) 4.3H, Basophils (%) (Auto) 2.1H, Sodium Level 145, Potassium Level 2.7*L, Chloride Level 106, Carbon Dioxide Level 32, Anion Gap 7, Blood Urea Nitrogen 4L , Creatinine 0.6, Estimat Glomerular Filtration Rate > 60, Glucose Level 160H, Calcium Level 8.0L, Phosphorus Level 2.6, Magnesium Level 1.8, Pro-B-Type Natriuretic Peptide 218H Current Medications Medications (Trade) Dose Ordered Sig/Leatha Route PRN Reason Start Time Stop Time Status Last Admin Dose Admin Acetaminophen (Tylenol) 1,000 mg Q6H PRN ORAL temp>100.2 or headache 09/13/17 12:30 10/13/17 12:29 09/14/17 16:57 Albuterol Sulfate (Proventil) 2.5 mg Q6HRT HHN 09/14/17 17:45 09/19/17 17:44 09/16/17 01:27 Chlorhexidine Gluconate (Leonela-Hex 2%) 1 applic DAILY@2000 TOPIC 09/15/17 20:00 10/15/17 19:59 09/15/17 19:42 Dextrose 1,000 ml @ 0 mls/hr Q24H PRN IV PN interrupted or unavailable 09/14/17 08:30 10/14/17 08:29 Dextrose (Dextrose 50%) STAT PRN IV Hypoglycemia 09/14/17 08:30 10/14/17 08:29 Diphenhydramine HCl (Benadryl) 25 mg Q6H PRN IVP Itching/Pruritis 09/16/17 12:30 09/18/17 23:59 Fat Emulsion Intravenous 240 ml/Amino Acids/ Electrolytes/ Dextrose 1,800 ml @ 75 mls/hr Q24H IV 09/15/17 21:00 10/15/17 20:59 09/15/17 21:02 Hydromorphone HCl 30 ml @ 0 mls/hr Q24H PRN IV For Pain 09/16/17 12:15 09/18/17 23:59 Hydromorphone HCl (Dilaudid) 2 mg Q4H PRN IVP Moderate Pain (Pain Scale 4-6) 09/16/17 12:15 09/17/17 23:59 Hydromorphone HCl (Dilaudid) 2 mg q3h PRN SUBQ Severe Pain (Pain Scale 7-10) 09/16/17 09:15 09/17/17 23:59 Insulin Aspart (NovoLOG) Q6HR SUBQ 09/14/17 18:00 10/14/17 17:59 09/16/17 07:01 Iron Sucrose 100 mg/Sodium Chloride 60 ml @ 240 mls/hr BEDTIME IV 09/14/17 21:00 09/18/17 21:14 09/15/17 21:07 Ketorolac Tromethamine (Toradol 30mg) 15 mg Q6H PRN IV Severe Breakthru Pain (>7) 09/15/17 15:00 09/20/17 09:14 09/16/17 01:10 Lorazepam (Ativan) 1 mg HSPRN PRN SL Sleep 09/13/17 21:00 09/20/17 20:59 09/14/17 21:51 Lorazepam (Ativan) 1 mg Q4H PRN SL Muscle Spasm 09/13/17 12:30 09/20/17 12:29 09/15/17 04:04 Miscellaneous Medication (DESK EDITOR Rate Change) 1 ea DAILY PRN MISC rate change 09/16/17 08:45 09/18/17 23:59 Miscellaneous Medication (DESK EDITOR shift volume) 1 ea Q12HR@0700,1900 MISC 09/16/17 19:00 09/17/17 23:59 Naloxone HCl (Narcan) 0.1 mg Q1M PRN IVP RR<10/min OR SBP<90 mmHg 09/16/17 08:45 09/18/17 23:59 Nystatin (Nystatin Cr) 1 applic THREE TIMES A DAY TOPIC 09/14/17 10:00 12/9/17 09:59 09/16/17 09:11 Ondansetron HCl (Zofran) 4 mg Q4H PRN IVP Nausea & Vomiting 09/13/17 12:30 10/13/17 12:29 Phytonadione (Vitamin K) 10 mg ONCE A WEEK SUBQ 09/21/17 21:00 10/21/17 20:59 Potassium Chloride 50 meq/ Dextrose/Sodium Chloride 1,025 ml @ 60 mls/hr Q17H5M IV 09/16/17 08:45 10/16/17 08:44 09/16/17 09:11 FEDERICO MEEK Sep 16, 2017 12:10
[2017-09-16] MEDS ORDERED: PCA HYDROmorphone 1mg/ml 30 ML IV PRN (12:15)
[2017-09-16] MEDS ORDERED: DiphenhydrAMINE 50mg/ml Inj IVP PRN (12:30)
[2017-09-16 16:00] VITALS: BP 154/102
[2017-09-16] MEDS ORDERED: Albuterol ud Inhalation HHN SCH (19:00)
[2017-09-16] MEDS ORDERED: Ipratropium 0.02% Inh Soln 2.5ml UD HHN SCH (19:00)
[2017-09-16] MEDS ORDERED: PCA shift volume MISC SCH (19:00)
[2017-09-16 20:46] VITALS: BP 118/82
[2017-09-16] MEDS: Albuterol/Ipratropium 3ml neb HHN SCH ×2 (20:50→23:09)
[2017-09-16] MEDS: Iron Sucrose 100 MG in NS 55 ML IV SCH (21:05)
[2017-09-16] MEDS: Fat Emulsion Iv 20% 240 ML in Tpn 1,560 ML IV SCH (21:07)
[2017-09-16] MEDS: Dyna-Hex 2% Top Sol 2oz TOPIC SCH (21:08)
[2017-09-17 00:31] VITALS: BP 114/83
[2017-09-17] MEDS: [UNRECOGNIZED DRUG - OTHER] IV SCH ×2 (01:53→18:35)
[2017-09-17] MEDS: D5 IV SCH ×2 (01:53→18:35)
[2017-09-17] MEDS: POTASSIUM CHLORIDE IV SCH ×2 (01:53→18:35)
[2017-09-17] MEDS: Albuterol/Ipratropium 3ml neb HHN SCH ×6 (03:00→23:46)
[2017-09-17 04:41] VITALS: BP 126/87
[2017-09-17 05:21] LABS: MEAN CORPUSCULAR HEMOGLOBIN 28.7 PG (27.0-31.0); MEAN CORPUSCULAR HGB CONC 32.2 G/DL (32.0-36.0); MEAN CORPUSCULAR VOLUME 89 FL (80-99); MEAN PLATELET VOLUME 7.1 FL (6.5-10.1); PLATELET COUNT 245 K/UL (150-450); RED BLOOD COUNT 4.33 M/UL (4.20-5.40); RED CELL DISTRIBUTION WIDTH 15.3 % (11.6-14.8)
[2017-09-17 05:23] LABS: WHITE BLOOD COUNT 1.1 K/UL (4.8-10.8)
[2017-09-17 05:25] LABS: ANION GAP 6 mmol/L (5-15); CALCIUM 8.2 MG/DL (8.5-10.1); CARBON DIOXIDE 29 MMOL/L (21-32); CHLORIDE 106 MMOL/L (98-107); CREATININE 0.5 MG/DL (0.55-1.30); GLOMERULAR FILTRATION RATE > 60 mL/min (>60); POTASSIUM 3.4 MMOL/L (3.5-5.1); SODIUM 141 MMOL/L (136-145)
[2017-09-17] MEDS: NovoLOG Insulin Flexpen SUBQ SCH ×3 (05:30→17:25)
[2017-09-17 08:00] VITALS: BP 122/89
[2017-09-17] MEDS: Ketorolac 30mg Inj IV PRN ×2 (08:12→17:18)
[2017-09-17 09:16] LABS: ANISOCYTOSIS 1+; BAND NEUTROPHILS % (MANUAL) 0 % (0-8); BASOPHILS % (MANUAL) 2 % (0-2); EOSINOPHILS % (MANUAL) 6 % (0-3); LYMPHOCYTES % (MANUAL) 17 % (20-45); NEUTROPHILS % (MANUAL) 59 % (45-75); PLATELET ESTIMATE ADEQUATE; PLATELET MORPHOLOGY NORMAL; TOTAL CELLS COUNTED 100
--- NOTE | 2017-09-17 09:37 | General Progress Note ---
Progress Note Progress Note AVSS but persistent tachycardia (110) and intermittent respiratory difficulty, resolved with RT treatments Abdomen still mildly distended, incisions clean. ANDREW removed. Ileostomy pink with flatus and some enteric fluid Urine 2049 Ileostomy 65 ANDREW 7 WBC 1100 Hgb 12.4 Platelets 245,000 K up 3.4 Imp. slowly resolving ileus leukopenia ? etiology continued intermittent respiratory symptoms Plan: NPO and continue TPN D/C Cheung Hematology evaluation re decline in WBC f/u labs in ROLF MOHR Sep 17, 2017 09:37
--- NOTE | 2017-09-17 11:50 | Diagnostic Imaging Report ---
Indication: Shortness of breath Comparison: None Technique: Contiguous helical CT images through the chest was performed without intravenous contrast. Axial, coronal and sagittal reconstructions were reformatted. CT Dose: Total DLP: 525 mGycm; Total CTDI volume 16 Linings: The thoracic aorta is of normal caliber. Heart size is normal. No pericardial effusion. Small prominent lymph nodes are seen in the upper mediastinum. There is an enlarged lymph node in the aorticopulmonary window measuring 2.0 cm. Large bilateral pleural effusions, left greater than right is noted with associated compressive atelectasis. Several small patchy infiltrates are seen in both lungs, right greater than left. A right PICC line catheter is noted with distal tip in the superior vena cava. No acute osseous abnormalities. Impression: Large bilateral pleural effusions, left greater than right with associated compressive atelectasis. Several small patchy infiltrates in both lungs, right greater than left. Several small prominent lymph nodes noted in the upper mediastinum. An enlarged 2.0 cm lymph node is noted in the aorticopulmonary window. This is nonspecific finding. These lymph nodes may be reactive. Correlate clinically.
[2017-09-17 12:00] VITALS: BP 118/86
[2017-09-17] MEDS ORDERED: Naloxone 0.4mg/ml Inj IVP PRN (12:15)
[2017-09-17] MEDS ORDERED: Rate Change PCA 1 Each MISC PRN (12:15)
[2017-09-17 12:30] LABS: ALANINE AMINOTRANSFERASE 19 U/L (12-78); ASPARTATE AMINO TRANSFERASE 24 U/L (15-37); BILIRUBIN,DIRECT < 0.1 MG/DL (0.0-0.3); MEAN CORPUSCULAR HEMOGLOBIN 28.9 PG (27.0-31.0); MEAN CORPUSCULAR HGB CONC 32.2 G/DL (32.0-36.0); MEAN CORPUSCULAR VOLUME 90 FL (80-99); MEAN PLATELET VOLUME 7.3 FL (6.5-10.1); PLATELET COUNT 233 K/UL (150-450); RED CELL DISTRIBUTION WIDTH 15.1 % (11.6-14.8); TOTAL PROTEIN 6.6 G/DL (6.4-8.2); WHITE BLOOD COUNT 3.1 K/UL (4.8-10.8)
[2017-09-17 13:10] LABS: BAND NEUTROPHILS % (MANUAL) 4 % (0-8); BASOPHILS % (MANUAL) 0 % (0-2); EOSINOPHILS % (MANUAL) 5 % (0-3); LYMPHOCYTES % (MANUAL) 18 % (20-45); NEUTROPHILS % (MANUAL) 60 % (45-75); PLATELET ESTIMATE ADEQUATE; TOTAL CELLS COUNTED 100
[2017-09-17 13:11] LABS: PLATELET MORPHOLOGY NORMAL
--- NOTE | 2017-09-17 13:24 | Pulmonology Progress Note ---
Assessment/Plan Assessment/Plan 1. Status post continent ostomy revision. 2. Postoperative wheezing and dyspnea. 3. Small bilateral pleural effusions. Not SOB no wheezing on q4h HHN BNP 200; echo ok D Dimer slightly high; duplex neg CT with mod bilateral effusions thoracentesis tomorrow cont HHN Subjective Respiratory: Reports: productive cough, Denies: shortness of breath Allergies: Coded Allergies: MORPHINE (Verified Allergy, Intermediate, pruritis, 09/12/17) SULFA (SULFONAMIDE ANTIBIOTICS) (Verified Allergy, Intermediate, vomiting , 09/12/17) Objective Last 24 Hour Vital Signs Date Time Temp Pulse Resp B/P (MAP) Pulse Ox O2 Delivery O2 Flow Rate FiO2 09/17/17 12:00 18 09/17/17 12:00 98.5 102 17 118/86 95 Room Air 09/17/17 11:10 92 18 99 Room Air 09/17/17 11:00 88 18 98 Room Air 09/17/17 08:42 98.7 09/17/17 08:00 18 09/17/17 08:00 98.6 108 18 122/89 100 Room Air 09/17/17 07:10 99 18 99 Room Air 09/17/17 07:07 Room Air 09/17/17 07:07 97 Room Air 09/17/17 07:07 95 20 97 Room Air 09/17/17 04:41 98.7 109 18 126/87 94 Room Air 09/17/17 04:00 18 09/17/17 03:46 Room Air 09/17/17 03:45 Room Air 09/17/17 00:31 98.3 107 20 114/83 94 Room Air 09/17/17 00:00 18 09/16/17 23:20 90 20 97 Room Air 09/16/17 23:09 97 20 92 Room Air 09/16/17 21:01 101 20 96 Room Air 09/16/17 20:52 95 20 94 Room Air 09/16/17 20:51 94 Room Air 09/16/17 20:51 Room Air 09/16/17 20:46 99.2 104 18 118/82 97 Room Air 09/16/17 20:00 18 09/16/17 16:00 20 09/16/17 16:00 98.4 107 22 154/102 99 Room Air 09/16/17 13:47 101 20 95 Nasal Cannula 2.0 28 Intake and Output 09/17/17 09/18/17 19:00 07:00 Intake Total 810 ml Balance 810 ml IV Total 810 ml General Appearance: no acute distress Respiratory/Chest: lungs clear, decreased breath sounds Cardiovascular: normal rate Laboratory Tests 09/17/17 04:05: White Blood Count 1.1#*L, Red Blood Count 4.33, Hemoglobin 12.4, Hematocrit 38.6 , Mean Corpuscular Volume 89, Mean Corpuscular Hemoglobin 28.7, Mean Corpuscular Hemoglobin Concent 32.2, Red Cell Distribution Width 15.3H, Platelet Count 245, Mean Platelet Volume 7.1, Neutrophils (%) (Auto) , Lymphocytes (%) (Auto) , Monocytes (%) (Auto) , Eosinophils (%) (Auto) , Basophils (%) (Auto) , Differential Total Cells Counted 100, Neutrophils % ( Manual) 59, Lymphocytes % (Manual) 17L, Monocytes % (Manual) 16H, Eosinophils % (Manual) 6H, Basophils % (Manual) 2, Band Neutrophils 0, Platelet Estimate Adequate, Platelet Morphology Normal, Anisocytosis 1+, Sodium Level 141, Potassium Level 3.4L, Chloride Level 106, Carbon Dioxide Level 29, Anion Gap 6, Blood Urea Nitrogen 5L, Creatinine 0.5L, Estimat Glomerular Filtration Rate > 60 , Glucose Level 131H, Calcium Level 8.2L 09/17/17 10:55: White Blood Count 3.1#L, Red Blood Count 4.10L, Hemoglobin 11.9L, Hematocrit 36.8L, Mean Corpuscular Volume 90, Mean Corpuscular Hemoglobin 28.9, Mean Corpuscular Hemoglobin Concent 32.2, Red Cell Distribution Width 15.1H, Platelet Count 233, Mean Platelet Volume 7.3, Neutrophils (%) (Auto) , Lymphocytes (%) (Auto) , Monocytes (%) (Auto) , Eosinophils (%) (Auto) , Basophils (%) (Auto) , Differential Total Cells Counted 100, Neutrophils % ( Manual) 60, Lymphocytes % (Manual) 18L, Monocytes % (Manual) 13H, Eosinophils % (Manual) 5H, Basophils % (Manual) 0, Band Neutrophils 4, Platelet Estimate Adequate, Platelet Morphology Normal, Red Blood Cell Morphology Normal, Total Bilirubin 0.3, Direct Bilirubin < 0.1, Aspartate Amino Transf (AST/SGOT) 24, Alanine Aminotransferase (ALT/SGPT) 19, Alkaline Phosphatase 66, Total Protein 6.6, Albumin 2.4L, Anti-Nuclear Antibody Screen [Pending], Hepatitis B Surface Antibody [Pending], Hepatitis C Antibody [Pending], HIV (1&2) Antibody Rapid Negative Current Medications Medications (Trade) Dose Ordered Sig/Leatha Route PRN Reason Start Time Stop Time Status Last Admin Dose Admin Acetaminophen (Tylenol) 1,000 mg Q6H PRN ORAL temp>100.2 or headache 09/13/17 12:30 10/13/17 12:29 09/14/17 16:57 Albuterol/ Ipratropium (Albuterol/ Ipratropium) 3 ml Q4HRT HHN 09/16/17 19:00 09/21/17 18:59 09/17/17 12:14 Chlorhexidine Gluconate (Leonela-Hex 2%) 1 applic DAILY@2000 TOPIC 09/15/17 20:00 10/15/17 19:59 09/16/17 21:08 Dextrose 1,000 ml @ 0 mls/hr Q24H PRN IV PN interrupted or unavailable 09/14/17 08:30 10/14/17 08:29 Dextrose (Dextrose 50%) STAT PRN IV Hypoglycemia 09/14/17 08:30 10/14/17 08:29 Diphenhydramine HCl (Benadryl) 25 mg Q6H PRN IVP Itching/Pruritis 09/17/17 12:15 09/19/17 12:14 Fat Emulsion Intravenous 240 ml/Amino Acids/ Electrolytes/ Dextrose 1,800 ml @ 75 mls/hr Q24H IV 09/15/17 21:00 10/15/17 20:59 09/16/17 21:07 Hydromorphone HCl 30 ml @ 0 mls/hr Q24H PRN IV For Pain 09/17/17 12:15 09/19/17 12:14 Hydromorphone HCl (Dilaudid) 2 mg Q4H PRN IVP Moderate Pain (Pain Scale 4-6) 09/17/17 12:15 09/18/17 12:14 Insulin Aspart (NovoLOG) Q6HR SUBQ 09/14/17 18:00 10/14/17 17:59 09/17/17 12:35 Iron Sucrose 100 mg/Sodium Chloride 60 ml @ 240 mls/hr BEDTIME IV 09/14/17 21:00 09/18/17 21:14 09/16/17 21:05 Ketorolac Tromethamine (Toradol 30mg) 15 mg Q6H PRN IV Severe Breakthru Pain (>7) 09/15/17 15:00 09/20/17 09:14 09/17/17 08:12 Lorazepam (Ativan) 1 mg HSPRN PRN SL Sleep 09/13/17 21:00 09/20/17 20:59 09/14/17 21:51 Lorazepam (Ativan) 1 mg Q4H PRN SL Muscle Spasm 09/13/17 12:30 09/20/17 12:29 09/15/17 04:04 Miscellaneous Medication (DRY CLEANING MANAGER Rate Change) 1 ea DAILY PRN MISC rate change 09/17/17 12:15 09/19/17 12:14 Miscellaneous Medication (DRY CLEANING MANAGER shift volume) 1 ea Q12HR@0700,1900 MISC 09/17/17 19:00 09/18/17 18:59 Naloxone HCl (Narcan) 0.1 mg Q1M PRN IVP RR<10/min OR SBP<90 mmHg 09/17/17 12:15 09/19/17 12:14 Nystatin (Nystatin Cr) 1 applic THREE TIMES A DAY TOPIC 09/14/17 10:00 10/14/17 09:59 09/17/17 08:12 Ondansetron HCl (Zofran) 4 mg Q4H PRN IVP Nausea & Vomiting 09/13/17 12:30 10/13/17 12:29 Phytonadione (Vitamin K) 10 mg ONCE A WEEK SUBQ 09/21/17 21:00 10/21/17 20:59 Potassium Chloride 50 meq/ Dextrose/Sodium Chloride 1,025 ml @ 60 mls/hr Q17H5M IV 09/16/17 08:45 10/16/17 08:44 09/17/17 01:53 FEDERICO MEEK Sep 17, 2017 13:24
[2017-09-17 13:28] LABS: PATH BLOOD SMEAR/OMC SENT TO PATHOLOGIST
[2017-09-17 16:00] VITALS: BP 127/92
[2017-09-17] MEDS: DiphenhydrAMINE 50mg/ml Inj IVP PRN (17:18)
[2017-09-17] MEDS: PCA HYDROmorphone 1mg/ml 30 ML IV PRN (17:25)
[2017-09-17] MEDS: PCA shift volume MISC SCH (19:07)
[2017-09-17 20:00] VITALS: BP 121/88
[2017-09-17] MEDS: Iron Sucrose 100 MG in NS 55 ML IV SCH (20:38)
[2017-09-17] MEDS: Dyna-Hex 2% Top Sol 2oz TOPIC SCH (20:38)
[2017-09-17] MEDS: Fat Emulsion Iv 20% 240 ML in Tpn 1,560 ML IV SCH (20:40)
[2017-09-17] MEDS ORDERED: Simethicone 80mg tab ORAL PRN (22:00)
[2017-09-18 00:08] VITALS: BP 133/91
[2017-09-18] MEDS: NovoLOG Insulin Flexpen SUBQ SCH ×4 (00:11→18:00)
[2017-09-18] MEDS: Ketorolac 30mg Inj IV PRN ×2 (00:12→15:44)
[2017-09-18] MEDS: Albuterol/Ipratropium 3ml neb HHN SCH ×6 (03:44→23:52)
[2017-09-18 04:00] VITALS: BP 129/92
[2017-09-18 05:19] LABS: ANION GAP 7 mmol/L (5-15); CARBON DIOXIDE 27 MMOL/L (21-32); CHLORIDE 108 MMOL/L (98-107); CREATININE 0.7 MG/DL (0.55-1.30); GLOMERULAR FILTRATION RATE > 60 mL/min (>60); POTASSIUM 4.2 MMOL/L (3.5-5.1); SODIUM 142 MMOL/L (136-145)
[2017-09-18 05:20] LABS: MEAN CORPUSCULAR HEMOGLOBIN 28.7 PG (27.0-31.0); MEAN CORPUSCULAR HGB CONC 31.9 G/DL (32.0-36.0); MEAN CORPUSCULAR VOLUME 90 FL (80-99); MEAN PLATELET VOLUME 7.6 FL (6.5-10.1); PLATELET COUNT 244 K/UL (150-450); RED BLOOD COUNT 4.38 M/UL (4.20-5.40); RED CELL DISTRIBUTION WIDTH 15.5 % (11.6-14.8)
[2017-09-18] MEDS: PCA shift volume MISC SCH (07:00)
[2017-09-18 08:00] VITALS: BP 132/96
--- NOTE | 2017-09-18 10:15 | General Progress Note ---
Progress Note Progress Note AVSS but persistent tachycardia and intermittent resp. symptoms. Abdomen still distended, healing well. Ileostomy pink with enteric fluid now Urine 3400 (voiding) Ileostomy 225 WBC up 3000 Imp. Slowly resolving ileus Pleural effusions ? etiology Leukopenia - improved Plan: Continue npo and TPN Thoracentesis; CT chest; etc - per Dr. Stapleton and ROLF Cooney Sep 18, 2017 10:15
[2017-09-18 10:40] LABS: PROTHROMBIN TIME 10.2 SEC (9.30-11.50)
[2017-09-18 11:37] LABS: OTHERS PATHOLOGIST COMMENT
[2017-09-18 12:00] VITALS: BP 124/89
--- NOTE | 2017-09-18 12:59 | Pulmonology Progress Note ---
Assessment/Plan Assessment/Plan 1. Status post continent ostomy revision. 2. Postoperative wheezing and dyspnea. 3. Mod bilateral pleural effusions. 4. Leucopenia, etiology unclear Mild SOB no wheezing on q4h HHN D Dimer slightly high; duplex neg CT with mod bilateral effusions thoracentesis today monitor WBC cont HHN Subjective Constitutional: Denies: fever Respiratory: Reports: shortness of breath Allergies: Coded Allergies: MORPHINE (Verified Allergy, Intermediate, pruritis, 09/12/17) SULFA (SULFONAMIDE ANTIBIOTICS) (Verified Allergy, Intermediate, vomiting , 09/12/17) Objective Last 24 Hour Vital Signs Date Time Temp Pulse Resp B/P (MAP) Pulse Ox O2 Delivery O2 Flow Rate FiO2 09/18/17 11:39 101 18 Room Air 09/18/17 11:30 100 18 96 Room Air 09/18/17 08:00 18 09/18/17 08:00 98.3 104 19 132/96 96 Room Air 09/18/17 07:20 101 18 Room Air 09/18/17 07:15 Room Air 09/18/17 07:10 99 18 92 Room Air 09/18/17 07:09 92 Room Air 09/18/17 04:00 98.8 114 16 129/92 94 Room Air 09/18/17 03:55 87 18 99 Room Air 09/18/17 03:45 82 18 97 Room Air 09/18/17 00:08 97.9 126 16 133/91 94 Room Air 09/17/17 23:56 84 18 99 Room Air 09/17/17 23:46 78 18 97 Room Air 09/17/17 20:00 18 09/17/17 20:00 97.9 93 18 121/88 97 Room Air 09/17/17 19:25 Room Air 09/17/17 19:25 95 Room Air 09/17/17 19:25 Room Air 09/17/17 19:24 Room Air 09/17/17 17:48 98.5 09/17/17 17:48 98.5 09/17/17 17:30 18 09/17/17 16:17 Room Air 09/17/17 16:16 Room Air 09/17/17 16:00 98.1 101 18 127/92 100 Room Air 09/17/17 15:45 17 Intake and Output 09/18/17 09/19/17 19:00 07:00 Intake Total 405 ml Balance 405 ml IV Total 405 ml General Appearance: no acute distress Respiratory/Chest: decreased breath sounds Cardiovascular: normal rate Laboratory Tests 09/18/17 04:50: White Blood Count 3.0L, Red Blood Count 4.38, Hemoglobin 12.6, Hematocrit 39.4, Mean Corpuscular Volume 90, Mean Corpuscular Hemoglobin 28.7, Mean Corpuscular Hemoglobin Concent 31.9L, Red Cell Distribution Width 15.5H, Platelet Count 244 , Mean Platelet Volume 7.6, Neutrophils (%) (Auto) , Lymphocytes (%) (Auto) , Monocytes (%) (Auto) , Eosinophils (%) (Auto) , Basophils (%) (Auto) , Sodium Level 142, Potassium Level 4.2, Chloride Level 108H, Carbon Dioxide Level 27, Anion Gap 7, Blood Urea Nitrogen 8, Creatinine 0.7, Estimat Glomerular Filtration Rate > 60, Glucose Level 155H, Calcium Level 9.0 09/18/17 10:00: Prothrombin Time 10.2, Prothromb Time International Ratio 1.0, Activated Partial Thromboplast Time 32 Current Medications Medications (Trade) Dose Ordered Sig/Leatha Route PRN Reason Start Time Stop Time Status Last Admin Dose Admin Acetaminophen (Tylenol) 1,000 mg Q6H PRN ORAL temp>100.2 or headache 09/13/17 12:30 10/13/17 12:29 09/14/17 16:57 Albuterol/ Ipratropium (Albuterol/ Ipratropium) 3 ml Q4HRT HHN 09/16/17 19:00 09/21/17 18:59 09/18/17 11:31 Chlorhexidine Gluconate (Leonela-Hex 2%) 1 applic DAILY@2000 TOPIC 09/15/17 20:00 10/15/17 19:59 09/17/17 20:38 Dextrose 1,000 ml @ 0 mls/hr Q24H PRN IV PN interrupted or unavailable 09/14/17 08:30 10/14/17 08:29 Dextrose (Dextrose 50%) STAT PRN IV Hypoglycemia 09/14/17 08:30 10/14/17 08:29 Diphenhydramine HCl (Benadryl) 25 mg Q6H PRN IVP Itching/Pruritis 09/17/17 12:15 09/19/17 12:14 09/17/17 17:18 Fat Emulsion Intravenous 240 ml/Amino Acids/ Electrolytes/ Dextrose 1,800 ml @ 75 mls/hr Q24H IV 09/15/17 21:00 10/15/17 20:59 09/17/17 20:40 Hydromorphone HCl 30 ml @ 0 mls/hr Q24H PRN IV For Pain 09/17/17 12:15 09/19/17 12:14 09/17/17 17:25 Insulin Aspart (NovoLOG) Q6HR SUBQ 09/14/17 18:00 10/14/17 17:59 09/18/17 05:45 Iron Sucrose 100 mg/Sodium Chloride 60 ml @ 240 mls/hr BEDTIME IV 09/14/17 21:00 09/18/17 21:14 09/17/17 20:38 Ketorolac Tromethamine (Toradol 30mg) 15 mg Q6H PRN IV Severe Breakthru Pain (>7) 09/15/17 15:00 09/20/17 09:14 09/18/17 00:12 Lorazepam (Ativan) 1 mg HSPRN PRN SL Sleep 09/13/17 21:00 09/20/17 20:59 09/14/17 21:51 Lorazepam (Ativan) 1 mg Q4H PRN SL Muscle Spasm 09/13/17 12:30 09/20/17 12:29 09/15/17 04:04 Miscellaneous Medication (LASER/ELECTRO OPTICS TECHNICIAN Rate Change) 1 ea DAILY PRN MISC rate change 09/17/17 12:15 09/19/17 12:14 Miscellaneous Medication (LASER/ELECTRO OPTICS TECHNICIAN shift volume) 1 ea Q12HR@0700,1900 MISC 09/17/17 19:00 09/18/17 18:59 09/18/17 07:00 Naloxone HCl (Narcan) 0.1 mg Q1M PRN IVP RR<10/min OR SBP<90 mmHg 09/17/17 12:15 09/19/17 12:14 Nystatin (Nystatin Cr) 1 applic THREE TIMES A DAY TOPIC 09/14/17 10:00 10/14/17 09:59 09/17/17 08:12 Ondansetron HCl (Zofran) 4 mg Q4H PRN IVP Nausea & Vomiting 09/13/17 12:30 10/13/17 12:29 Phytonadione (Vitamin K) 10 mg ONCE A WEEK SUBQ 09/21/17 21:00 10/21/17 20:59 Potassium Chloride 50 meq/ Dextrose/Sodium Chloride 1,025 ml @ 60 mls/hr Q17H5M IV 09/16/17 08:45 10/16/17 08:44 09/17/17 18:35 Simethicone (Mylicon) 80 mg Q6HR PRN ORAL bloating 09/17/17 22:00 10/17/17 21:59 FEDERICO MEEK Sep 18, 2017 12:59
[2017-09-18] MEDS: D5 IV SCH ×2 (13:23→20:00)
[2017-09-18] MEDS: DiphenhydrAMINE 50mg/ml Inj IVP PRN ×2 (13:23→21:19)
[2017-09-18] MEDS: [UNRECOGNIZED DRUG - OTHER] IV SCH (13:23)
[2017-09-18] MEDS: POTASSIUM CHLORIDE IV SCH ×2 (13:23→20:00)
--- NOTE | 2017-09-18 15:53 | Diagnostic Imaging Report ---
Indications: Pleural effusion Technique: Ultrasound used to localize optimal puncture site. Sterile prepping and draping chest. Local anesthesia with 1% lidocaine. Under real-time ultrasound guidance, puncture pleural space using thoracentesis needle. Stylet removed. Catheter placed to vacuum bottle suction. Only a small amount of fluid could be aspirated. The pleural space was reaccessed using a Yueh needle under sonographic supervision. Total 1200 milliliters of fluid aspirated. Patient tolerated procedure well, without immediate complication. Findings: Followup sonography demonstrates complete resolution of pleural fluid. Impression: Successful ultrasound-guided thoracentesis, yielding 1200 milliliters of fluid
[2017-09-18 16:00] VITALS: BP 128/95
[2017-09-18] MEDS: PCA HYDROmorphone 1mg/ml 30 ML IV PRN (16:40)
--- NOTE | 2017-09-18 16:54 | Diagnostic Imaging Report ---
Indication: Cough, postthoracentesis Technique: One view of the chest Comparison: 09/14/2017 Findings: Near-complete resolution of previously demonstrated left pleural effusion. No gross pneumothorax. There is left perihilar atelectasis. Pole right pleural effusion persists. Right arm PICC remains. Impression: Resolved or nearly resolved left pleural effusion, status post thoracentesis. No radiographically evident complication
[2017-09-18] MEDS ORDERED: D5 IV SCH (18:00)
[2017-09-18] MEDS ORDERED: POTASSIUM CHLORIDE IV SCH (18:00)
[2017-09-18] MEDS ORDERED: [UNRECOGNIZED DRUG - OTHER] IV SCH (18:00)
[2017-09-18 20:00] VITALS: BP 147/89
[2017-09-18] MEDS: [UNRECOGNIZED DRUG - OTHER] IV SCH (20:00)
--- NOTE | 2017-09-18 20:47 | Diagnostic Imaging Report ---
APPROVED REPORT CPT Code: 91479 Present Symptoms Lower Extremity Pain: Bilateral BILATERAL: Imaging reveals a patent deep venous system bilaterally. There is no evidence of thrombus within the femoral, popliteal or tibial segments. The greater saphenous veins are also within normal limits. Doppler indicates normal spontaneous flow within these segments.
[2017-09-18] MEDS: Iron Sucrose 100 MG in NS 55 ML IV SCH (21:17)
[2017-09-18 21:19] LABS: APPEARANCE, BODY FLUID BLOODY; BD FL SOURCE THORACENTESIS; BD FL VOLUME 24 mL
[2017-09-18] MEDS: Fat Emulsion Iv 20% 240 ML in Tpn 1,560 ML IV SCH (21:19)
[2017-09-18] MEDS: Dyna-Hex 2% Top Sol 2oz TOPIC SCH (21:19)
[2017-09-18 21:20] LABS: BODY FLUID NUCLEATED CELLS 986 /CUMM; BODY FLUID RBC 7008 /CUMM; MONONUCLEAR WBC 93 %; POLYMORPHONUCLEAR WBC 5 %
[2017-09-19] VITALS (7 sets, daily range): BP systolic 111–130; BP diastolic 77–96
[2017-09-19] MEDS: Albuterol/Ipratropium 3ml neb HHN SCH ×6 (03:00→23:00)
[2017-09-19] MEDS: NovoLOG Insulin Flexpen SUBQ SCH ×4 (06:00→17:37)
[2017-09-19 06:13] LABS: MEAN CORPUSCULAR HEMOGLOBIN 29.5 PG (27.0-31.0); MEAN CORPUSCULAR VOLUME 89 FL (80-99); MEAN PLATELET VOLUME 8.2 FL (6.5-10.1); PLATELET COUNT 245 K/UL (150-450); RED BLOOD COUNT 4.18 M/UL (4.20-5.40); RED CELL DISTRIBUTION WIDTH 15.3 % (11.6-14.8); WHITE BLOOD COUNT 3.5 K/UL (4.8-10.8)
[2017-09-19 06:28] LABS: ANION GAP 6 mmol/L (5-15); CALCIUM 8.7 MG/DL (8.5-10.1); CARBON DIOXIDE 30 MMOL/L (21-32); CHLORIDE 102 MMOL/L (98-107); CREATININE 0.7 MG/DL (0.55-1.30); GLOMERULAR FILTRATION RATE > 60 mL/min (>60); SODIUM 137 MMOL/L (136-145)
--- NOTE | 2017-09-19 08:00 | Consultation ---
DATE OF CONSULTATION: 09/18/2017 HEMATOLOGY/ONCOLOGY CONSULTATION CONSULTING PHYSICIAN: Lizeth Stout M.D. REFERRING PHYSICIAN: Dane Cancino M.D. REASON FOR CONSULTATION: Leukopenia. HISTORY OF PRESENT ILLNESS: The patient is an extremely pleasant female from [place]. The patient has a longstanding history of Crohn's disease that was diagnosed at age 17. The patient has had multiple abdominal surgeries. The patient is currently being admitted to [facility] under the care of Dr. Cancino of Surgery regarding treatment of fistula, status post ostomy placement. The ostomy placement was done on 09/12/2017. The patient on evaluation did undergo a chest x-ray, which showed moderate left-sided pleural effusion. The patient has had approximately 20-pack year history, quit approximately five years ago. The patient has had normal white count upon admission, however, it has been noted that the patient has had significant drop in white count, down to approximately 1, and therefore, this Hematology/Oncology consultation has been requested for further evaluation. PAST MEDICAL HISTORY: Crohn's disease, history of multiple abdominal surgeries, history of abdominal fistula, and history of being a smoker. PAST SURGICAL HISTORY: The patient is status post multiple abdominal surgeries. MEDICATIONS: Per electronic medical record. ALLERGIES: Per electronic medical record. FAMILY HISTORY: The patient's mother has history of bladder cancer. REVIEW OF SYSTEMS: GENERAL: The patient denies any headache, vision change, or hearing loss. PULMONARY: The patient denies any significant shortness of breath or cough. The patient denies chronic history of TB exposure. The patient has some pleural effusion noted. GASTROINTESTINAL: The patient has had multiple abdominal surgeries. 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 MUSCULOSKELETAL: The patient denies any significant joint pain. PHYSICAL EXAMINATION: GENERAL: The patient is an elderly female, in no acute distress. VITAL SIGNS: She is 5 feet 5 inches. Weight is 120 pounds. Blood pressure of 120/80, pulse of 100, and temperature 98 degrees. HEAD AND NECK: Sclerae anicteric. CHEST: Decreased breath sounds bilaterally. Some rhonchi and mild wheezing. CARDIAC: Regular rhythm. S1 and S2. ABDOMEN: Soft. Mildly distended, however, there is ostomy in place. Postsurgical changes noted. EXTREMITIES: No cyanosis, clubbing, or edema. NEUROLOGIC: Nonfocal. LYMPHATICS: No lymphadenopathy or adenopathy noted. LABORATORY AND DIAGNOSTIC DATA: Laboratory as well as investigational studies include a white count of 1.1 on 09/17/2017. The patient's white count had dropped from 4.6 to 3.6 days prior to this evaluation. Platelet count 245, hemoglobin 12.8. Differential include lymphopenia with 17% lymphocytes, 16% monocytes, and 6% eosinophils. PTT and PT have been within normal limits. The patient's chemistry demonstrates normal creatinine, glucose of 155. Liver enzymes are within normal limits. Albumin is 2.4. The patient's CT scan of the chest on 09/17/2017 does note evidence of large bilateral pleural effusions, left greater than right, with compression atelectasis, several small patchy infiltrates in both lungs right greater than left, several small lymph nodes large up to 2 cm. ASSESSMENT AND PLAN: 1. Leukopenia, questionable etiology. I had extensive discussion with Dr. Cancino yesterday. The patient has been treated with Unasyn as well as Flagyl, both of which could potentially may cause leukopenia, Unasyn more severe than Flagyl. Both have been discontinued by Dr. Cancino already. We had extensive discussion with Dr. Cancino in regards to holding up any further Unasyn. The patient will be placed on neutropenic precautions. CBC will be repeated today. The patient has been on neutropenic precautions. Further evaluation will be done if the white count fully reverses. No need for any extensive evaluation at this point in time. The patient denies any fevers while neutropic. The patient will be treated with proper antibiotics. 2. Pleural effusion, bilateral. The patient was sent for thoracocentesis with cytology evaluation. I will defer Dr. Stapleton in light of the patient's history of significant tobacco use and adenopathy. Consultation for outpatient PET scan should be done as well as abdominal imaging. We will discuss with Dr. Cancino abdominal imaging here in the hospital. 3. Cachexia. The patient on TPN currently. 4. Crohn's disease, currently status post abdominal ostomy placement. 5. Code status is Full code. Thank you, Dr. Cancino for allowing me to participate in the care of this very pleasant patient. Lizeth Stout M.D. DR: DONNA JOB#: [id number] CC:
[2017-09-19] MEDS: DiphenhydrAMINE 50mg/ml Inj IVP PRN (08:10)
--- NOTE | 2017-09-19 09:09 | General Progress Note ---
Progress Note Progress Note AVSS but still with intermittent tachycardia. No respiratory difficulty since thoracentesis (1200cc right pleural effusion) Abdomen soft, incisions clean, stoma edema decreased Urine 1750 Ileostomy 230 WBC up 3500Hgb 12.3 stable BMP - wnl Imp. Resolving ileus Bilateral pleural effusions ? etiology Plan: Clear liquid diet will d/c FOREST RESOURCES PROFESSOR tomorrow WOCN for new ileostomy education/supplies ?? right chest thoracentesis - per Dr. Stapleton Work-up re etiology of bilat. pleural effusions - per Dr. Stapleton and ROLF Naranjo Sep 19, 2017 09:09
[2017-09-19] MEDS ORDERED: PCA HYDROmorphone 1mg/ml 30 ML IV PRN (10:15)
[2017-09-19] MEDS ORDERED: DiphenhydrAMINE 50mg/ml Inj IVP PRN (10:15)
[2017-09-19] MEDS ORDERED: Naloxone 0.4mg/ml Inj IVP PRN (10:15)
[2017-09-19] MEDS ORDERED: Rate Change PCA 1 Each MISC PRN (10:15)
[2017-09-19 10:26] LABS: COMMENT,BODY FLUID PATHOLOGIST COMMENT
--- NOTE | 2017-09-19 11:34 | Pulmonology Progress Note ---
Assessment/Plan Assessment/Plan 1. Status post continent ostomy revision. 2. Postoperative wheezing and dyspnea. 3. Mod bilateral pleural effusions., s/p 1200 cc L thoracentesis 4. Leucopenia, etiology unclear 1200 cc L thoracentesis, feels better slightly traumatic, RBCs, NEG cytology improved cont HHN qid Subjective ROS Limited/Unobtainable: No Respiratory: Denies: dry cough, shortness of breath Allergies: Coded Allergies: MORPHINE (Verified Allergy, Intermediate, pruritis, 09/12/17) SULFA (SULFONAMIDE ANTIBIOTICS) (Verified Allergy, Intermediate, vomiting , 09/12/17) Objective Last 24 Hour Vital Signs Date Time Temp Pulse Resp B/P (MAP) Pulse Ox O2 Delivery O2 Flow Rate FiO2 09/19/17 11:28 99.2 111 20 130/81 94 Room Air 09/19/17 08:20 98.8 105 19 129/96 93 Room Air 09/19/17 08:00 18 09/19/17 06:57 Room Air 09/19/17 06:57 Room Air 09/19/17 06:57 Room Air 09/19/17 06:57 95 Room Air 09/19/17 04:00 18 09/19/17 04:00 99.3 114 18 128/87 93 Room Air 09/19/17 03:40 Room Air 09/19/17 03:40 Room Air 09/19/17 00:00 18 09/19/17 00:00 98.4 117 18 115/91 95 Room Air 09/18/17 23:58 84 18 Room Air 09/18/17 23:52 97 18 96 Room Air 09/18/17 20:32 Room Air 09/18/17 20:31 95 Room Air 21 09/18/17 20:31 Room Air 09/18/17 20:31 Room Air 09/18/17 20:00 18 09/18/17 20:00 99.7 104 18 147/89 96 Room Air 09/18/17 17:10 98.2 09/18/17 16:14 98.2 09/18/17 16:00 18 09/18/17 16:00 98.2 100 18 128/95 96 Room Air 09/18/17 15:31 Room Air 09/18/17 15:31 Room Air 09/18/17 12:00 98.4 101 18 124/89 96 Room Air 09/18/17 11:39 101 18 Room Air 21 Intake and Output 09/19/17 09/20/17 19:00 07:00 Intake Total 380 ml Balance 380 ml IV Total 380 ml General Appearance: no acute distress HEENT: anicteric Respiratory/Chest: lungs clear Cardiovascular: normal rate Laboratory Tests 09/18/17 14:40: Body Fluid Source Thoracentesis, Body Fluid Volume 24, Body Fluid Appearance Bloody, Body Fluid RBC 7008, Body Fluid Total Nucleated Cells 986, Body Fluid Polynuclear WBCs (%) 5, Body Fluid Mononuclear WBCs (%) 93, Body Fluid Mesothelial Cells (%) 2, Body Fluid Glucose [Pending], Body Fluid Total Protein [Pending], Body Fluid Comment Pathologist comment 09/19/17 05:00: White Blood Count 3.5L, Red Blood Count 4.18L, Hemoglobin 12.3, Hematocrit 37.4 , Mean Corpuscular Volume 89, Mean Corpuscular Hemoglobin 29.5, Mean Corpuscular Hemoglobin Concent 33.0, Red Cell Distribution Width 15.3H, Platelet Count 245, Mean Platelet Volume 8.2, Neutrophils (%) (Auto) , Lymphocytes (%) (Auto) , Monocytes (%) (Auto) , Eosinophils (%) (Auto) , Basophils (%) (Auto) , Sodium Level 137, Potassium Level 4.0, Chloride Level 102 , Carbon Dioxide Level 30, Anion Gap 6, Blood Urea Nitrogen 11, Creatinine 0.7, Estimat Glomerular Filtration Rate > 60, Glucose Level 106, Calcium Level 8.7 Current Medications Medications (Trade) Dose Ordered Sig/Leatha Route PRN Reason Start Time Stop Time Status Last Admin Dose Admin Acetaminophen (Tylenol) 1,000 mg Q6H PRN ORAL temp>100.2 or headache 09/13/17 12:30 10/13/17 12:29 09/14/17 16:57 Albuterol/ Ipratropium (Albuterol/ Ipratropium) 3 ml Q4HRT HHN 09/16/17 19:00 09/21/17 18:59 09/18/17 23:52 Chlorhexidine Gluconate (Leonela-Hex 2%) 1 applic DAILY@2000 TOPIC 09/15/17 20:00 10/15/17 19:59 09/18/17 21:19 Dextrose 1,000 ml @ 0 mls/hr Q24H PRN IV PN interrupted or unavailable 09/14/17 08:30 10/14/17 08:29 Dextrose (Dextrose 50%) STAT PRN IV Hypoglycemia 09/14/17 08:30 10/14/17 08:29 Diphenhydramine HCl (Benadryl) 25 mg Q6H PRN IVP Itching/Pruritis 09/19/17 10:15 09/21/17 10:14 Fat Emulsion Intravenous 240 ml/Amino Acids/ Electrolytes/ Dextrose 1,800 ml @ 75 mls/hr Q24H IV 09/15/17 21:00 10/15/17 20:59 09/18/17 21:19 Hydromorphone HCl 30 ml @ 0 mls/hr Q24H PRN IV For Pain 09/19/17 10:15 09/21/17 10:14 Hydromorphone HCl (Dilaudid) 2 mg Q4H PRN IVP Moderate Pain (Pain Scale 4-6) 09/19/17 10:15 09/21/17 10:14 Insulin Aspart (NovoLOG) Q6HR SUBQ 09/14/17 18:00 10/14/17 17:59 09/18/17 13:31 Ketorolac Tromethamine (Toradol 30mg) 15 mg Q6H PRN IV Severe Breakthru Pain (>7) 09/15/17 15:00 09/21/17 14:59 09/18/17 15:44 Lorazepam (Ativan) 1 mg HSPRN PRN SL Sleep 09/13/17 21:00 09/20/17 20:59 09/14/17 21:51 Lorazepam (Ativan) 1 mg Q4H PRN SL Muscle Spasm 09/13/17 12:30 09/20/17 12:29 09/15/17 04:04 Miscellaneous Medication (CURTAIN STITCHER Rate Change) 1 ea DAILY PRN MISC rate change 09/19/17 10:15 09/21/17 10:14 Miscellaneous Medication (CURTAIN STITCHER shift volume) 1 ea Q12HR@0700,1900 MISC 09/19/17 19:00 09/21/17 18:59 Naloxone HCl (Narcan) 0.1 mg Q1M PRN IVP RR<10/min OR SBP<90 mmHg 09/19/17 10:15 09/21/17 10:14 Ondansetron HCl (Zofran) 4 mg Q4H PRN IVP Nausea & Vomiting 09/13/17 12:30 10/13/17 12:29 Phytonadione (Vitamin K) 10 mg ONCE A WEEK SUBQ 09/21/17 21:00 10/21/17 20:59 Potassium Chloride 30 meq/ Dextrose/Sodium Chloride 1,015 ml @ 20 mls/hr Q24H IV 09/18/17 20:00 10/18/17 19:59 09/18/17 20:00 Simethicone (Mylicon) 80 mg Q6HR PRN ORAL bloating 09/17/17 22:00 10/17/17 21:59 FEDERICO MEEK Sep 19, 2017 11:34
[2017-09-19 15:21] LABS: PROTEIN, BODY FLUID 3.7 g/dL (.)
[2017-09-19] MEDS ORDERED: Albuterol/Ipratropium 3ml neb HHN SCH (19:00)
[2017-09-19 19:12] LABS: ANTI-NUCLEAR ANTIBODY SCREEN Positive (Negative)
[2017-09-19] MEDS: PCA shift volume MISC SCH (19:24)
[2017-09-19] MEDS: Ketorolac 30mg Inj IV PRN (20:12)
[2017-09-19] MEDS: Dyna-Hex 2% Top Sol 2oz TOPIC SCH (20:21)
[2017-09-19] MEDS: Fat Emulsion Iv 20% 240 ML in Tpn 1,560 ML IV SCH (20:28)
[2017-09-19] MEDS: D5 IV SCH (20:30)
[2017-09-19] MEDS: POTASSIUM CHLORIDE IV SCH (20:30)
[2017-09-19] MEDS: [UNRECOGNIZED DRUG - OTHER] IV SCH (20:30)
[2017-09-19] MEDS: LORazepam 1mg tab SL PRN (23:28)
[2017-09-20] VITALS: BP 128/92
[2017-09-20] MEDS: NovoLOG Insulin Flexpen SUBQ SCH ×5 (00:16→23:56)
[2017-09-20] MEDS: Albuterol/Ipratropium 3ml neb HHN SCH ×4 (02:38→14:50)
[2017-09-20 04:00] VITALS: BP 115/84
[2017-09-20 04:42] LABS: BASOPHILS % (AUTO) 2.4 % (0.0-2.0); EOSINOPHILS % (AUTO) 6.3 % (0.0-3.0); LYMPHOCYTES % (AUTO) 22.2 % (20.0-45.0); MEAN CORPUSCULAR HEMOGLOBIN 28.3 PG (27.0-31.0); MEAN CORPUSCULAR VOLUME 88 FL (80-99); MEAN PLATELET VOLUME 8.1 FL (6.5-10.1); MONOCYTES % (AUTO) 9.4 % (1.0-10.0); NEUTROPHILS % (AUTO) 59.6 % (45.0-75.0); PLATELET COUNT 247 K/UL (150-450); RED BLOOD COUNT 4.23 M/UL (4.20-5.40); RED CELL DISTRIBUTION WIDTH 15.2 % (11.6-14.8); WHITE BLOOD COUNT 3.7 K/UL (4.8-10.8)
[2017-09-20 04:54] LABS: POTASSIUM 4.1 MMOL/L (3.5-5.1)
[2017-09-20 05:06] LABS: ANION GAP 5 mmol/L (5-15); CALCIUM 8.9 MG/DL (8.5-10.1); CARBON DIOXIDE 29 MMOL/L (21-32); CHLORIDE 103 MMOL/L (98-107); CREATININE 0.7 MG/DL (0.55-1.30); GLOMERULAR FILTRATION RATE > 60 mL/min (>60); SODIUM 137 MMOL/L (136-145)
[2017-09-20] MEDS: PCA shift volume MISC SCH (07:21)
[2017-09-20 08:00] VITALS: BP 102/73
--- NOTE | 2017-09-20 08:40 | General Progress Note ---
Progress Note Progress Note Tmax 100. VSS with less tachycardia. tolerating clear liquids Abdomen soft, protruberant, incisions clean. Ileostomy pink Urine 2200 Ileostomy 350 WBC up 3700 BMP - wnl Imp. Slowly improving Plan: D/C [employer] [place] 5/325 prn Full liquid diet ROLF NELSON Sep 20, 2017 08:40
[2017-09-20] MEDS: Norco 5mg/325mg tab ORAL PRN ×4 (09:15→23:56)
[2017-09-20 12:00] VITALS: BP 112/78
--- NOTE | 2017-09-20 12:11 | Wound Nurse Progress Note ---
Wound RN Progress Note Wound Consult seen patient as ordered. patient was provided with ostomy teaching and care. patient was able to perform return demonstration with removal of current ostomy bag,cleaning site, keeping site dry, protection of surrounding skin , was able to perform cutting , cut to fit ostomy was also applied by patient and was also able to properly place clip. patient did well and understood teaching. EDIN BARFIELD Sep 20, 2017 12:11
[2017-09-20 16:00] VITALS: BP 133/86
--- NOTE | 2017-09-20 17:41 | Pulmonology Progress Note ---
Assessment/Plan Assessment/Plan 1. Status post continent ostomy revision. 2. Postoperative wheezing and dyspnea. 3. Mod bilateral pleural effusions., s/p 1200 cc L thoracentesis 4. Leucopenia, etiology unclear pleural fluid exudative +VANDANA improved cont HHN prn only consider rheum consult will see less often Subjective Respiratory: Denies: shortness of breath Allergies: Coded Allergies: MORPHINE (Verified Allergy, Intermediate, pruritis, 09/12/17) SULFA (SULFONAMIDE ANTIBIOTICS) (Verified Allergy, Intermediate, vomiting , 09/12/17) Objective Last 24 Hour Vital Signs Date Time Temp Pulse Resp B/P (MAP) Pulse Ox O2 Delivery O2 Flow Rate FiO2 09/20/17 16:00 99.1 97 19 133/86 99 Nasal Cannula 3.0 09/20/17 15:44 98.6 09/20/17 14:51 Room Air 09/20/17 14:50 Room Air 09/20/17 12:00 98.6 100 18 112/78 96 Room Air 09/20/17 11:42 Room Air 09/20/17 11:42 Room Air 09/20/17 09:25 18 09/20/17 08:00 98.3 101 18 102/73 97 Room Air 09/20/17 08:00 18 09/20/17 07:52 Room Air 09/20/17 07:52 Room Air 09/20/17 04:00 17 09/20/17 04:00 98.2 107 18 115/84 93 Room Air 09/20/17 02:46 Room Air 09/20/17 02:46 Room Air 09/20/17 00:48 Room Air 09/20/17 00:48 Room Air 09/20/17 00:00 98.7 106 19 128/92 95 Room Air 09/20/17 00:00 17 09/19/17 20:02 100.0 107 18 126/89 93 Room Air 09/19/17 20:00 16 09/19/17 19:58 95 18 100 Room Air 21 09/19/17 19:43 111 18 99 Room Air 09/19/17 18:09 98.7 118 21 111/77 95 Room Air Intake and Output 09/20/17 09/21/17 19:00 07:00 Intake Total 1420 ml Output Total 1300 ml Balance 120 ml Intake Oral 630 ml IV Total 790 ml Output Urine Total 1300 ml # Voids 3 General Appearance: no acute distress HEENT: atraumatic Respiratory/Chest: lungs clear, decreased breath sounds Cardiovascular: normal rate Laboratory Tests 09/20/17 04:30: White Blood Count 3.7L, Red Blood Count 4.23, Hemoglobin 12.0, Hematocrit 37.4, Mean Corpuscular Volume 88, Mean Corpuscular Hemoglobin 28.3, Mean Corpuscular Hemoglobin Concent 32.0, Red Cell Distribution Width 15.2H, Platelet Count 247, Mean Platelet Volume 8.1, Neutrophils (%) (Auto) 59.6, Lymphocytes (%) (Auto) 22.2, Monocytes (%) (Auto) 9.4, Eosinophils (%) (Auto) 6.3H, Basophils (%) (Auto ) 2.4H, Sodium Level 137, Potassium Level 4.1, Chloride Level 103, Carbon Dioxide Level 29, Anion Gap 5, Blood Urea Nitrogen 12, Creatinine 0.7, Estimat Glomerular Filtration Rate > 60, Glucose Level 123H, Calcium Level 8.9 Current Medications Medications (Trade) Dose Ordered Sig/Leatha Route PRN Reason Start Time Stop Time Status Last Admin Dose Admin Acetaminophen (Tylenol) 1,000 mg Q6H PRN ORAL temp>100.2 or headache 09/13/17 12:30 10/13/17 12:29 09/14/17 16:57 Acetaminophen/ Hydrocodone Bitart ([place] 5/325) 1 tab Q4H PRN ORAL Moderate Pain (Pain Scale 4-6) 09/20/17 08:30 09/27/17 08:29 09/20/17 14:45 Al Hydroxide/Mg Hydroxide (Mylanta) 30 ml Q2H PRN ORAL heartburn 09/20/17 17:15 10/20/17 17:14 09/20/17 17:08 Albuterol/ Ipratropium (Albuterol/ Ipratropium) 3 ml Q4HRT HHN 09/16/17 19:00 09/21/17 18:59 09/19/17 19:45 Chlorhexidine Gluconate (Leonela-Hex 2%) 1 applic DAILY@2000 TOPIC 09/15/17 20:00 10/15/17 19:59 09/19/17 20:21 Dextrose 1,000 ml @ 0 mls/hr Q24H PRN IV PN interrupted or unavailable 09/14/17 08:30 10/14/17 08:29 Dextrose (Dextrose 50%) STAT PRN IV Hypoglycemia 09/14/17 08:30 10/14/17 08:29 Diphenhydramine HCl (Benadryl) 25 mg Q4H PRN ORAL PRURITUS 09/20/17 17:15 10/20/17 17:14 09/20/17 17:08 Fat Emulsion Intravenous 240 ml/Amino Acids/ Electrolytes/ Dextrose 1,800 ml @ 75 mls/hr Q24H IV 09/15/17 21:00 10/15/17 20:59 09/19/17 20:28 Insulin Aspart (NovoLOG) Q6HR SUBQ 09/14/17 18:00 10/14/17 17:59 09/20/17 17:13 Lorazepam (Ativan) 1 mg HSPRN PRN SL Sleep 09/20/17 08:30 09/27/17 08:29 Lorazepam (Ativan) 1 mg Q4H PRN SL Muscle Spasm 09/20/17 12:30 09/27/17 12:29 Ondansetron HCl (Zofran) 4 mg Q4H PRN IVP Nausea & Vomiting 09/13/17 12:30 10/13/17 12:29 Phytonadione (Vitamin K) 10 mg ONCE A WEEK SUBQ 09/21/17 21:00 10/21/17 20:59 Simethicone (Mylicon) 80 mg Q6HR PRN ORAL bloating 09/17/17 22:00 10/17/17 21:59 FEDERICO MEEK Sep 20, 2017 17:41
[2017-09-20] MEDS ORDERED: Albuterol/Ipratropium 3ml neb HHN PRN (18:00)
[2017-09-20] MEDS: Dyna-Hex 2% Top Sol 2oz TOPIC SCH (19:56)
[2017-09-20 20:00] VITALS: BP 126/92
[2017-09-20] MEDS: Fat Emulsion Iv 20% 240 ML in Tpn 1,560 ML IV SCH (20:38)
[2017-09-20] MEDS: LORazepam 1mg tab SL PRN (20:48)
[2017-09-21 00:42] VITALS: BP 122/89
[2017-09-21] MEDS: LORazepam 1mg tab SL PRN ×3 (02:50→20:51)
[2017-09-21 04:11] VITALS: BP 135/95
[2017-09-21] MEDS: NovoLOG Insulin Flexpen SUBQ SCH ×4 (05:57→23:00)
[2017-09-21] MEDS: Norco 5mg/325mg tab ORAL PRN ×4 (06:19→23:01)
[2017-09-21 06:35] LABS: BASOPHILS % (AUTO) 4.1 % (0.0-2.0); EOSINOPHILS % (AUTO) 6.9 % (0.0-3.0); LYMPHOCYTES % (AUTO) 15.6 % (20.0-45.0); MEAN CORPUSCULAR HEMOGLOBIN 29.1 PG (27.0-31.0); MEAN CORPUSCULAR HGB CONC 32.7 G/DL (32.0-36.0); MEAN CORPUSCULAR VOLUME 89 FL (80-99); MEAN PLATELET VOLUME 8.7 FL (6.5-10.1); MONOCYTES % (AUTO) 19.7 % (1.0-10.0); NEUTROPHILS % (AUTO) 53.7 % (45.0-75.0); PLATELET COUNT 286 K/UL (150-450); RED BLOOD COUNT 4.62 M/UL (4.20-5.40); RED CELL DISTRIBUTION WIDTH 15.4 % (11.6-14.8); WHITE BLOOD COUNT 4.3 K/UL (4.8-10.8)
[2017-09-21 06:42] LABS: ANION GAP 10 mmol/L (5-15); CALCIUM 9.2 MG/DL (8.5-10.1); CARBON DIOXIDE 27 MMOL/L (21-32); CHLORIDE 105 MMOL/L (98-107); CREATININE 0.6 MG/DL (0.55-1.30); GLOMERULAR FILTRATION RATE > 60 mL/min (>60); POTASSIUM 3.7 MMOL/L (3.5-5.1); SODIUM 141 MMOL/L (136-145)
[2017-09-21 08:00] VITALS: BP 128/89
[2017-09-21] MEDS ORDERED: Metoclopramide 10mg/2ml Inj IVP ONE (09:30)
[2017-09-21 12:00] VITALS: BP 126/95
--- NOTE | 2017-09-21 12:10 | General Progress Note ---
Progress Note Progress Note AVSS Repeated emesis overnight, now feeling better ABdomen slightly distended, incisions clean, stoma pink Urine 2700 Ileostomy 360 Emesis 650 WBC up 4300 Hgb 13.4 BMP - wnl CT scan abd+pelvis ; partial SBO, retroperitoneal and left iliac lymphadenopathy , still with small pleural effusions Imp: Early post-operative partial small bowel obstruction' Plan: NG tube for any additional emesis or UGI symptoms Continue TPN NPO labs in ROLF MOHR Sep 21, 2017 12:10
--- NOTE | 2017-09-21 12:12 | Diagnostic Imaging Report ---
Clinical Indication: VOMITING, history of a pouch in 1988, status post fistula repair Technique: No oral contrast utilized, due to vomiting. IV administration nonionic contrast. Venous phase spiral acquisition obtained through the abdomen and pelvis. Multiplanar reconstructions were generated. Total dose length product 521 mGycm. CTDIvol(s) 10 mGy. Dose reduction achieved using automated exposure control Comparison: None Findings: There is marked jejunal distention beginning at the level of proximal to mid jejunum. There is a transition point to nondilated small bowel in the left upper pelvis. However, there are some segmentally dilated more distal small bowel loops. There is a stoma in the left lower quadrant. There is a midline incision. There is a small right lower quadrant incision. No significant incisional fluid collections are demonstrated A small amount of free fluid is seen within the pelvic cul-de-sac. Opacities in the deep posterior pelvis most likely represent unopacified small bowel loops. Some of the small bowel wall in the pelvis appears somewhat thickened. A few small gas bubbles are seen within the pelvis just above the perineum. No other extraluminal gas is demonstrated. There is a prominent right hepatic Elfego's lobe. An unusual irregular low-attenuation area is seen at the tip of this, which measures 2 x 1.3 x 2.6 cm. This appears to extend to the liver capsule. A similar defect is seen anteriorly in segment 4B. The remainder of the liver is unremarkable. The gallbladder, bile ducts, pancreas, spleen, adrenals, left kidney are unremarkable. There is a 10 mm calculus within the lower pole collecting system of the right kidney no hydronephrosis. The bladder is nondistended. The uterus is unremarkable. There is retroperitoneal adenopathy, with retroperitoneal nodes measuring up to 2.7 cm long axis dimension. There is bilateral iliac adenopathy, with a left common iliac node measuring 2.4 cm long axis dimension. There is a moderate to large right, moderate left pleural effusion. There is associated compressive basilar atelectasis. The bones are unremarkable. Impression: Markedly dilated jejunum with apparent transition to normal caliber small bowel in the left upper pelvis. Findings are concerning for small bowel obstruction, possibly secondary to adhesions. Segmental mild focal dilatation of the ileum is also noted. The latter may represent a focal ileus, given recent surgery. Small gas bubbles within the pelvis, probably related to recent surgery Free fluid within the pelvis, likely related to recent surgery Iliac chain and retroperitoneal lymphadenopathy. Nonspecific, could be reactive or neoplastic. Postsurgical changes as described Unusual irregular low-attenuation area at the tip of the right hepatic lobe. This may represent a subcapsular cyst, possibly partially ruptured. Also could be the sequela of prior hepatic intraoperative or other trauma. There is a similar abnormality of the left hepatic lobe. This could just be developmental in nature, however. Moderate to large right, moderate left pleural effusions. Associated compressive basilar atelectasis . Both effusions are somewhat smaller than those demonstrated on recent chest CT of 09/17/2017 10 mm nonobstructive right lower pole intrarenal calculus Findings discussed by phone with Dr. Cancino at the time of interpretation The CT scanner at [facility] is accredited by the [employer] and the scans are performed using protocols designed to limit radiation exposure to as low as reasonably achievable to attain images of sufficient resolution adequate for diagnostic evaluation.
[2017-09-21 16:00] VITALS: BP 132/91
[2017-09-21 20:44] VITALS: BP 142/100
[2017-09-21] MEDS: Iron Sucrose 100 MG in NS 55 ML IV SCH (20:51)
[2017-09-21] MEDS: Dyna-Hex 2% Top Sol 2oz TOPIC SCH (20:51)
[2017-09-21] MEDS: Fat Emulsion Iv 20% 240 ML in Tpn 1,560 ML IV SCH (20:53)
[2017-09-21] MEDS ORDERED: Phytonadione 10 mg/mL 1ml amp SUBQ SCH (21:00)
[2017-09-22 00:27] VITALS: BP 110/80
[2017-09-22 04:41] LABS: BASOPHILS % (AUTO) 2.5 % (0.0-2.0); EOSINOPHILS % (AUTO) 7.7 % (0.0-3.0); LYMPHOCYTES % (AUTO) 20.6 % (20.0-45.0); MEAN CORPUSCULAR HEMOGLOBIN 29.6 PG (27.0-31.0); MEAN CORPUSCULAR VOLUME 90 FL (80-99); MEAN PLATELET VOLUME 8.6 FL (6.5-10.1); MONOCYTES % (AUTO) 19.1 % (1.0-10.0); NEUTROPHILS % (AUTO) 50.2 % (45.0-75.0); PLATELET COUNT 249 K/UL (150-450); RED BLOOD COUNT 4.11 M/UL (4.20-5.40); RED CELL DISTRIBUTION WIDTH 15.4 % (11.6-14.8); WHITE BLOOD COUNT 3.5 K/UL (4.8-10.8)
[2017-09-22 04:54] VITALS: BP 119/91
[2017-09-22 05:19] LABS: ALANINE AMINOTRANSFERASE 29 U/L (12-78); ALBUMIN/GLOBULIN RATIO 0.5 (1.0-2.7); ANION GAP 10 mmol/L (5-15); ASPARTATE AMINO TRANSFERASE 29 U/L (15-37); CALCIUM 8.6 MG/DL (8.5-10.1); CARBON DIOXIDE 27 MMOL/L (21-32); CHLORIDE 107 MMOL/L (98-107); CREATININE 0.6 MG/DL (0.55-1.30); GLOMERULAR FILTRATION RATE > 60 mL/min (>60); MAGNESIUM 1.8 MG/DL (1.8-2.4); PHOSPHORUS 3.8 MG/DL (2.5-4.9); POTASSIUM 3.3 MMOL/L (3.5-5.1); SODIUM 144 MMOL/L (136-145); TOTAL PROTEIN 7.2 G/DL (6.4-8.2)
[2017-09-22] MEDS: NovoLOG Insulin Flexpen SUBQ SCH ×4 (05:52→23:05)
[2017-09-22] MEDS: Norco 5mg/325mg tab ORAL PRN ×4 (05:53→22:59)
[2017-09-22 08:00] VITALS: BP 114/85
[2017-09-22] MEDS ORDERED: PERCOCET 10-321 EACH ORAL (10:50)
--- NOTE | 2017-09-22 12:19 | General Progress Note ---
Progress Note Progress Note AVSS with pulse 90s to 110. Feeling better with no further emesis or UGI symptoms Abdomen less distended, more ileostomy effluent and flatus Incisions clean Urine 1150 Ileo 160 WBC 3500 Hgb 12.1 K 3.3 Mg/P - wnl Imp. Resolving partial small bowel obstruction Slight dehydration due to 3rd spacing Plan: Add IV fluids + Kcl Continue npo; TPN ROLF NELSON Sep 22, 2017 12:19
[2017-09-22 12:23] VITALS: BP 117/84
[2017-09-22] MEDS: D5 1/2NS w/KCl 40meq 1000ml 1,000 ML IV SCH (13:08)
[2017-09-22] MEDS: LORazepam 1mg tab SL PRN ×2 (14:27→20:55)
[2017-09-22 16:00] VITALS: BP 117/69
[2017-09-22] MEDS ORDERED: Tubing IV Secondary IV ONE (17:58)
[2017-09-22] MEDS ORDERED: NS 500ML ONE (17:58)
[2017-09-22 20:00] VITALS: BP 121/88
[2017-09-22] MEDS: Iron Sucrose 100 MG in NS 55 ML IV SCH (20:56)
[2017-09-22] MEDS: Fat Emulsion Iv 20% 240 ML in Tpn 1,560 ML IV SCH (20:57)
[2017-09-22] MEDS: Dyna-Hex 2% Top Sol 2oz TOPIC SCH (20:59)
[2017-09-23 04:00] VITALS: BP 123/91
[2017-09-23] MEDS: NovoLOG Insulin Flexpen SUBQ SCH ×3 (05:46→17:55)
[2017-09-23] MEDS: D5 1/2NS w/KCl 40meq 1000ml 1,000 ML IV SCH (05:47)
[2017-09-23] MEDS: Norco 5mg/325mg tab ORAL PRN ×2 (06:20→21:13)
[2017-09-23 08:00] VITALS: BP 127/93
--- NOTE | 2017-09-23 11:43 | General Progress Note ---
Progress Note Progress Note AVSS Pulse in the 80s now Abdomen soft, minimal distention, incisions clean Urine 1550 (up) Ileostomy 525 (up) Imp. Resolving partial SBO Plan: clear liquid diet as tolerated continue TPN ROLF NELSON Sep 23, 2017 11:43
[2017-09-23 11:47] VITALS: BP 117/86
[2017-09-23] MEDS: LORazepam 1mg tab SL PRN (13:43)
[2017-09-23 15:57] VITALS: BP 126/89
[2017-09-23] MEDS ORDERED: ALPRAZolam 0.25mg tab ORAL PRN (17:15)
[2017-09-23] MEDS ORDERED: ALPRAZolam 0.25mg tab ORAL ONE (17:45)
[2017-09-23] MEDS ORDERED: ALPRAZolam 0.5mg tab ORAL ONE (17:50)
[2017-09-23 20:14] VITALS: BP 131/91
[2017-09-23] MEDS: Iron Sucrose 100 MG in NS 55 ML IV SCH (20:37)
[2017-09-23] MEDS: Dyna-Hex 2% Top Sol 2oz TOPIC SCH (20:37)
[2017-09-23] MEDS: Fat Emulsion Iv 20% 240 ML in Tpn 1,560 ML IV SCH (20:47)
[2017-09-24 00:17] VITALS: BP 102/71
[2017-09-24] MEDS: NovoLOG Insulin Flexpen SUBQ SCH ×4 (00:28→17:28)
[2017-09-24] MEDS: D5 1/2NS w/KCl 40meq 1000ml 1,000 ML IV SCH (03:02)
[2017-09-24 04:30] LABS: BASOPHILS % (AUTO) 3.5 % (0.0-2.0); EOSINOPHILS % (AUTO) 7.6 % (0.0-3.0); MEAN CORPUSCULAR HEMOGLOBIN 28.8 PG (27.0-31.0); MEAN CORPUSCULAR HGB CONC 32.7 G/DL (32.0-36.0); MEAN CORPUSCULAR VOLUME 88 FL (80-99); MEAN PLATELET VOLUME 9.4 FL (6.5-10.1); MONOCYTES % (AUTO) 18.8 % (1.0-10.0); NEUTROPHILS % (AUTO) 55.1 % (45.0-75.0); PLATELET COUNT 270 K/UL (150-450); RED BLOOD COUNT 4.64 M/UL (4.20-5.40); RED CELL DISTRIBUTION WIDTH 15.3 % (11.6-14.8); WHITE BLOOD COUNT 3.6 K/UL (4.8-10.8)
[2017-09-24 04:40] VITALS: BP 121/89
[2017-09-24 04:46] LABS: ANION GAP 8 mmol/L (5-15); CARBON DIOXIDE 26 MMOL/L (21-32); CHLORIDE 105 MMOL/L (98-107); CREATININE 0.7 MG/DL (0.55-1.30); GLOMERULAR FILTRATION RATE > 60 mL/min (>60); SODIUM 139 MMOL/L (136-145)
[2017-09-24] MEDS: Norco 5mg/325mg tab ORAL PRN (05:05)
[2017-09-24 08:00] VITALS: BP 110/82
--- NOTE | 2017-09-24 10:00 | General Progress Note ---
Progress Note Progress Note AVSS Intermittent tachycardia No GI symptoms tolerating small amounts clear liquids but has no appetite Abdomen soft, healing nicely Urine 3060 Ileostomy 575 WBC 3600 BMP - wnl Imp. Resolved partial SBO Plan; BCIR low residue diet Decrease TPN to 40cc/hour to allow appetite to return ROLF NELSON Sep 24, 2017 10:00
[2017-09-24] MEDS ORDERED: Fat Emulsion Iv 20% 240 ML in Tpn 1,560 ML IV SCH (10:30)
[2017-09-24] MEDS: ALPRAZolam 0.25mg tab ORAL PRN ×2 (11:59→20:11)
[2017-09-24 12:00] VITALS: BP 128/93
[2017-09-24 16:00] VITALS: BP 124/89
[2017-09-24 20:00] VITALS: BP 126/93
[2017-09-24] MEDS: Dyna-Hex 2% Top Sol 2oz TOPIC SCH (20:03)
[2017-09-24] MEDS: Iron Sucrose 100 MG in NS 55 ML IV SCH (20:45)
[2017-09-24] MEDS: FAT EMULSION 20% IV SCH (20:45)
[2017-09-24] MEDS: TPN IV SCH (20:45)
[2017-09-25] VITALS (7 sets, daily range): BP systolic 98–126; BP diastolic 70–91
[2017-09-25] MEDS: LORazepam 1mg tab SL PRN ×2 (01:50→16:32)
[2017-09-25] MEDS: NovoLOG Insulin Flexpen SUBQ SCH ×4 (06:00→18:02)
--- NOTE | 2017-09-25 08:40 | General Progress Note ---
Progress Note Progress Note Afebrile but tachycardia recurred and patient having dyspnea since late yesterday requiring O2 supplement. Denies and abdominal or GI symptoms. Was able to eat 25% of low residue diet yesterday. Abdomen soft, incisions nicely healed, stoma stable Urine 2450 Ileostomy 600 Imp. Recurrent shortness of breath R/O recurrent left pleural effusion, etc Plan: Dr. Stapleton to follow-up today STAT portable upright CXR f/u labs in AM copntinue TPN at 40cc/hr + low residue diet as tolerated ROLF NELSON Sep 25, 2017 08:40
[2017-09-25] MEDS: ALPRAZolam 0.25mg tab ORAL PRN ×2 (10:37→21:11)
--- NOTE | 2017-09-25 10:47 | Cardiology Report ---
APPROVED REPORT EXAM: Two-dimensional and M-mode echocardiogram with Doppler and color Doppler. INDICATION Shortness of breath M-Mode DIMENSIONS IVSd0.6 (0.7-1.1cm)Left Atrium (MM)3.1 (1.6-4.0cm) LVDd3.6 (3.5-5.6cm)Aortic Root2.6 (2.0-3.7cm) PWd0.9 (0.7-1.1cm)Aortic Cusp Exc.2.0 (1.5-2.0cm) LVDs2.2 (2.5-4.0cm) PWs1.2 cm Normal left ventricular chamber size, systolic function and wall motion. Left ventricular ejection fraction estimated to be 60-65 %. No evidence of left ventricular hypertrophy. No evidence of pericardial effusion. Large posterior pleural effusion. All cardiac chamber sizes are within normal limits. Mild focal aortic valve sclerosis with adequate cusp excursion. Mildly thickened mitral valve leaflets with normal excursion. Mild mitral annulus and aortic root calcification. Pulmonic valve not well visualized. Normal tricuspid valve structure. IVC at normal size with physiologic collapse. A color flow and spectral Doppler study was performed and revealed: No aortic regurgitation. Mitral inflow indicates normal left ventricular diastolic function. Trace mitral regurgitation. Trace to mild tricuspid regurgitation. Tricuspid systolic velocities suggests peak right ventricular systolic pressure of 32 mmHg. No pulmonic regurgitation present.
--- NOTE | 2017-09-25 12:20 | Diagnostic Imaging Report ---
Indication: DYSPNEA Technique: One view of the chest Comparison: 09/18/2017 Findings: There is increased pleural fluid bilaterally, now moderate. Bilateral basilar and perihilar atelectatic changes have increased. There may be a small amount of interstitial congestion and/or hazy parenchymal opacity of both lung bases, new or increased if real Impression: Increased bilateral pleural fluid, over 7 days Equivocal new mild interstitial congestion and/or hazy parenchymal opacity
--- NOTE | 2017-09-25 12:45 | Pulmonology Progress Note ---
Assessment/Plan Assessment/Plan 1. Status post continent ostomy revision. 2. Postoperative wheezing and dyspnea. 3. Mod bilateral pleural effusions., s/p 1200 cc L thoracentesis 4. Leucopenia, etiology unclear recurrent bilateral pleural effusions thoracentesis +VANDANA recommend rheum consult disc w RN, Dr Cancino Subjective Respiratory: Reports: shortness of breath Allergies: Coded Allergies: MORPHINE (Verified Allergy, Intermediate, pruritis, 09/12/17) SULFA (SULFONAMIDE ANTIBIOTICS) (Verified Allergy, Intermediate, vomiting , 09/12/17) Objective Last 24 Hour Vital Signs Date Time Temp Pulse Resp B/P (MAP) Pulse Ox O2 Delivery O2 Flow Rate FiO2 09/25/17 12:00 97.9 111 20 124/91 93 Room Air 09/25/17 08:00 98.2 112 19 108/79 96 Room Air 09/25/17 07:50 100 20 Nasal Cannula 2.0 28 09/25/17 04:00 97.8 106 16 109/85 96 Nasal Cannula 2.0 09/24/17 20:00 98.8 118 20 126/93 96 Nasal Cannula 2.0 09/24/17 19:00 87 18 Room Air 21 09/24/17 16:00 98.2 101 18 124/89 96 Room Air Intake and Output 09/25/17 09/26/17 19:00 07:00 Intake Total 160 ml Balance 160 ml IV Total 160 ml General Appearance: no acute distress HEENT: anicteric Respiratory/Chest: no respiratory distress, no accessory muscle use, decreased breath sounds Cardiovascular: normal rate Current Medications Medications (Trade) Dose Ordered Sig/Leatha Route PRN Reason Start Time Stop Time Status Last Admin Dose Admin Acetaminophen (Tylenol) 1,000 mg Q6H PRN ORAL temp>100.2 or headache 09/13/17 12:30 10/13/17 12:29 09/14/17 16:57 Acetaminophen/ Hydrocodone Bitart ([place] 5/325) 1 tab Q4H PRN ORAL Moderate Pain (Pain Scale 4-6) 09/20/17 08:30 09/27/17 08:29 09/24/17 05:05 Al Hydroxide/Mg Hydroxide (Mylanta) 30 ml Q2H PRN ORAL heartburn 09/20/17 17:15 10/20/17 17:14 09/20/17 17:08 Albuterol/ Ipratropium (Albuterol/ Ipratropium) 3 ml QIDPRN PRN HHN shortness of breath 09/20/17 18:00 09/25/17 17:59 09/23/17 08:27 Alprazolam (Xanax) 1 mg Q6H PRN ORAL For Anxiety 09/23/17 18:00 09/30/17 17:59 09/25/17 10:37 Chlorhexidine Gluconate (Leonela-Hex 2%) 1 applic DAILY@2000 TOPIC 09/15/17 20:00 10/15/17 19:59 09/24/17 20:03 Dextrose 1,000 ml @ 0 mls/hr Q24H PRN IV PN interrupted or unavailable 09/14/17 08:30 10/14/17 08:29 Dextrose (Dextrose 50%) STAT PRN IV Hypoglycemia 09/14/17 08:30 10/14/17 08:29 Diphenhydramine HCl (Benadryl) 25 mg Q4H PRN ORAL PRURITUS 09/20/17 17:15 10/20/17 17:14 09/20/17 17:08 Fat Emulsion Intravenous 240 ml/Amino Acids/ Electrolytes/ Dextrose 960 ml @ 40 mls/hr Q24H IV 09/24/17 21:00 10/24/17 20:59 09/24/17 20:45 Insulin Aspart (NovoLOG) Q6HR SUBQ 09/14/17 18:00 10/14/17 17:59 09/25/17 11:49 Iron Sucrose 100 mg/Sodium Chloride 60 ml @ 240 mls/hr BEDTIME IV 09/21/17 21:00 09/25/17 21:14 09/24/17 20:45 Lorazepam (Ativan) 1 mg HSPRN PRN SL Sleep 09/20/17 08:30 09/27/17 08:29 09/25/17 01:50 Lorazepam (Ativan) 1 mg Q4H PRN SL Muscle Spasm 09/20/17 12:30 09/27/17 12:29 09/23/17 13:43 Ondansetron HCl (Zofran) 4 mg Q4H PRN IVP Nausea & Vomiting 09/13/17 12:30 10/13/17 12:29 09/21/17 07:55 Phytonadione (Vitamin K) 10 mg ONCE A WEEK SUBQ 09/21/17 21:00 10/21/17 20:59 09/21/17 20:54 Simethicone (Mylicon) 80 mg Q6HR PRN ORAL bloating 09/17/17 22:00 10/17/17 21:59 FEDERICO MEEK Sep 25, 2017 12:45
[2017-09-25] MEDS ORDERED: LORazepam 1mg tab SL PRN (18:00)
[2017-09-25] MEDS ORDERED: Albuterol/Ipratropium 3ml neb HHN PRN (18:00)
[2017-09-25] MEDS ORDERED: Dextrose 10% 1,000 ML IV PRN (18:00)
[2017-09-25] MEDS ORDERED: Simethicone 80mg tab ORAL PRN (18:00)
[2017-09-25] MEDS ORDERED: Acetaminophen 650mg/20.3ml ORAL PRN (18:30)
[2017-09-25] MEDS: Norco 5mg/325mg tab ORAL PRN (18:46)
[2017-09-25] MEDS ORDERED: FAT EMULSION 20% IV SCH (21:00)
[2017-09-25] MEDS ORDERED: Iron Sucrose 100 MG in NS 55 ML IV SCH (21:00)
[2017-09-25] MEDS ORDERED: TPN IV SCH (21:00)
[2017-09-25] MEDS: Dyna-Hex 2% Top Sol 2oz TOPIC SCH (21:08)
[2017-09-25] MEDS: FAT EMULSION 20% IV SCH (21:10)
[2017-09-25] MEDS: TPN IV SCH (21:10)
[2017-09-25] MEDS: Iron Sucrose 100 MG in NS 55 ML IV SCH (21:11)
[2017-09-26] VITALS: BP 101/77
[2017-09-26] MEDS: LORazepam 1mg tab SL PRN ×2 (03:49→20:07)
[2017-09-26 04:00] VITALS: BP 90/66
[2017-09-26 04:45] LABS: BASOPHILS % (AUTO) 1.7 % (0.0-2.0); EOSINOPHILS % (AUTO) 6.2 % (0.0-3.0); LYMPHOCYTES % (AUTO) 12.3 % (20.0-45.0); MEAN CORPUSCULAR HEMOGLOBIN 28.9 PG (27.0-31.0); MEAN CORPUSCULAR HGB CONC 32.8 G/DL (32.0-36.0); MEAN CORPUSCULAR VOLUME 88 FL (80-99); MEAN PLATELET VOLUME 10.2 FL (6.5-10.1); MONOCYTES % (AUTO) 14.3 % (1.0-10.0); NEUTROPHILS % (AUTO) 65.6 % (45.0-75.0); PLATELET COUNT 242 K/UL (150-450); RED BLOOD COUNT 4.73 M/UL (4.20-5.40); RED CELL DISTRIBUTION WIDTH 15.3 % (11.6-14.8); WHITE BLOOD COUNT 4.3 K/UL (4.8-10.8)
[2017-09-26] MEDS: NovoLOG Insulin Flexpen SUBQ SCH ×4 (06:00→18:06)
[2017-09-26 06:08] LABS: ALANINE AMINOTRANSFERASE 45 U/L (12-78); ALBUMIN/GLOBULIN RATIO 0.5 (1.0-2.7); ANION GAP 11 mmol/L (5-15); ASPARTATE AMINO TRANSFERASE 46 U/L (15-37); CALCIUM 9.5 MG/DL (8.5-10.1); CARBON DIOXIDE 26 MMOL/L (21-32); CHLORIDE 102 MMOL/L (98-107); CREATININE 0.7 MG/DL (0.55-1.30); GLOMERULAR FILTRATION RATE > 60 mL/min (>60); POTASSIUM 3.9 MMOL/L (3.5-5.1); SODIUM 139 MMOL/L (136-145); TOTAL PROTEIN 8.1 G/DL (6.4-8.2)
[2017-09-26 08:00] VITALS: BP 103/80
--- NOTE | 2017-09-26 08:44 | General Progress Note ---
Progress Note Progress Note Had episode of severe dyspnea and tachycardia to 138 - then stabilized. Transferred to [facility] for enhanced monitoring. CXR yesterday showed reaccumulation of moderate bilateral pleural effusions - to have repeat thoracentesis this AM Able to eat better now with good ileostomy output. Abdomen soft, nicely healed incisions WBC up 4300 albumin up 2.8 on TPN Imp. Respiratory distress due to recurring pleural effusion - etiology unclear Improved GI function Plan: Await thoracentesis Per Dr. Stapleton - + VANDANA lab test indicates need for Rheumatology consultation (called by Dr. Stapleton) Continue TPN at 40cc/hr and low residue diet ROLF NELSON Sep 26, 2017 08:44
[2017-09-26] MEDS: ALPRAZolam 0.25mg tab ORAL PRN (09:08)
[2017-09-26 12:00] VITALS: BP 91/62
--- NOTE | 2017-09-26 12:50 | Wound Care Consultation ---
Wound Assessment Wound Assessment : Wound Number: 1 Wound Present on Admission: No New Wound: Yes Status Change of Wound: No Wound Location Body Site: perineal area - and coccygeal area Wound Type: rash Deejay Test: Does not Deejay Rashes: Yael w/erosion Wound Thickness: Partial Thickness Percent of Wound [place]/Red: 100 Wound Drainage Amount: None Wound Drainage Odor: None/Absent Tissue Surrounding Wound: Erythemic Wound General Appearance: Reddened Wound Comment #1 fungal rash on perineal and coccygeal area. Pt awake alert x4 sated "it is itchy" and scattered partial thickness skin loss is due to self inflicted scratches Recommendation -Keep clean and dry -Apply Lotrimin cream as ordered -Assess and f/u accordingly for any changes ALEX BRANDT RN Sep 26, 2017 12:50
[2017-09-26] MEDS: Norco 5mg/325mg tab ORAL PRN (13:00)
--- NOTE | 2017-09-26 13:02 | Pulmonology Progress Note ---
Assessment/Plan Assessment/Plan 1. Status post continent ostomy revision. 2. Postoperative wheezing and dyspnea. 3. Mod bilateral pleural effusions., s/p 1200 cc L thoracentesis 4. Leucopenia, etiology unclear more SOB and high HR yesterday moved to [facility] US showed small pleural effusions thoracentesis only 5 cc +VANDANA called rheum consult disc w RN, Dr Cancino will have CT angio chest Subjective Respiratory: Reports: shortness of breath Allergies: Coded Allergies: MORPHINE (Verified Allergy, Intermediate, pruritis, 09/12/17) SULFA (SULFONAMIDE ANTIBIOTICS) (Verified Allergy, Intermediate, vomiting , 09/12/17) Objective Last 24 Hour Vital Signs Date Time Temp Pulse Resp B/P (MAP) Pulse Ox O2 Delivery O2 Flow Rate FiO2 09/26/17 12:00 97.7 112 20 91/62 94 Nasal Cannula 3.0 09/26/17 09:51 94 Nasal Cannula 3.0 32 09/26/17 09:50 Nasal Cannula 3.0 32 09/26/17 08:00 118 09/26/17 08:00 97.9 118 18 103/80 94 Nasal Cannula 3.0 09/26/17 07:50 121 18 Nasal Cannula 3.0 32 09/26/17 04:00 116 09/26/17 04:00 97.2 118 16 90/66 97 Nasal Cannula 3.0 09/26/17 00:00 105 09/26/17 00:00 97.1 103 16 101/77 97 Nasal Cannula 3.0 09/25/17 20:27 114 09/25/17 20:00 97.0 108 16 98/74 100 Nasal Cannula 3.0 09/25/17 19:00 94 18 Room Air 21 09/25/17 17:25 98.7 114 18 126/81 98 Nasal Cannula 3.0 09/25/17 16:20 97.9 138 22 112/89 94 Nasal Cannula 3.0 09/25/17 16:00 98.0 121 20 106/70 94 Nasal Cannula 3.0 General Appearance: no acute distress Respiratory/Chest: decreased breath sounds Cardiovascular: normal rate Abdomen: soft, non tender Laboratory Tests 09/25/17 18:05: Prothrombin Time 10.0, Prothromb Time International Ratio 1.0, Activated Partial Thromboplast Time 32 09/26/17 03:30: White Blood Count 4.3L, Red Blood Count 4.73, Hemoglobin 13.7, Hematocrit 41.8, Mean Corpuscular Volume 88, Mean Corpuscular Hemoglobin 28.9, Mean Corpuscular Hemoglobin Concent 32.8, Red Cell Distribution Width 15.3H, Platelet Count 242, Mean Platelet Volume 10.2H, Neutrophils (%) (Auto) 65.6, Lymphocytes (%) (Auto) 12.3L, Monocytes (%) (Auto) 14.3H, Eosinophils (%) (Auto) 6.2H, Basophils (%) ( Auto) 1.7, Sodium Level 139, Potassium Level 3.9, Chloride Level 102, Carbon Dioxide Level 26, Anion Gap 11, Blood Urea Nitrogen 12, Creatinine 0.7, Estimat Glomerular Filtration Rate > 60, Glucose Level 107H, Calcium Level 9.5, Total Bilirubin 0.4, Aspartate Amino Transf (AST/SGOT) 46H, Alanine Aminotransferase ( ALT/SGPT) 45, Alkaline Phosphatase 246H, Total Protein 8.1, Albumin 2.8L, Globulin 5.3, Albumin/Globulin Ratio 0.5L Current Medications Medications (Trade) Dose Ordered Sig/Leatha Route PRN Reason Start Time Stop Time Status Last Admin Dose Admin Acetaminophen (Tylenol) 1,000 mg Q6H PRN ORAL temp>100.2 or headache 09/25/17 18:30 10/13/17 12:29 Acetaminophen/ Hydrocodone Bitart ([place] 5/325) 1 tab Q4H PRN ORAL Moderate Pain (Pain Scale 4-6) 09/25/17 18:45 09/27/17 18:44 09/26/17 13:00 Al Hydroxide/Mg Hydroxide (Mylanta) 30 ml Q2H PRN ORAL heartburn 09/25/17 17:15 10/20/17 17:14 Albuterol/ Ipratropium (Albuterol/ Ipratropium) 3 ml QIDPRN PRN HHN shortness of breath 09/25/17 18:00 09/26/17 17:59 Alprazolam (Xanax) 1 mg Q6H PRN ORAL For Anxiety 09/25/17 18:00 09/30/17 17:59 09/26/17 09:08 Chlorhexidine Gluconate (Leonela-Hex 2%) 1 applic DAILY@2000 TOPIC 09/25/17 20:00 10/15/17 19:59 09/25/17 21:08 Clotrimazole (Lotrimin) 1 applic EVERY 12 HOURS TOPIC 09/26/17 12:45 10/26/17 12:44 UNV Dextrose 1,000 ml @ 0 mls/hr Q24H PRN IV PN interrupted or unavailable 09/25/17 18:00 10/25/17 17:59 Dextrose (Dextrose 50%) STAT PRN IV Hypoglycemia 09/25/17 18:00 10/25/17 17:59 Diphenhydramine HCl (Benadryl) 25 mg Q4H PRN ORAL PRURITUS 09/25/17 17:15 10/20/17 17:14 Fat Emulsion Intravenous 240 ml/Amino Acids/ Electrolytes/ Dextrose 960 ml @ 40 mls/hr Q24H IV 09/24/17 21:00 10/24/17 20:59 09/25/17 21:10 Insulin Aspart (NovoLOG) Q6HR SUBQ 09/25/17 18:30 10/14/17 18:29 Lorazepam (Ativan) 1 mg HSPRN PRN SL Sleep 09/25/17 18:00 10/02/17 17:59 09/26/17 03:49 Lorazepam (Ativan) 1 mg Q4H PRN SL Muscle Spasm 09/25/17 18:00 09/27/17 17:59 Ondansetron HCl (Zofran) 4 mg Q4H PRN IVP Nausea & Vomiting 09/25/17 20:30 10/13/17 12:29 Phytonadione (Vitamin K) 10 mg ONCE A WEEK SUBQ 09/28/17 21:00 10/21/17 20:59 Simethicone (Mylicon) 80 mg Q6H PRN ORAL bloating 09/25/17 18:00 10/25/17 17:59 FEDERICO MEEK Sep 26, 2017 13:02
--- NOTE | 2017-09-26 14:50 | Diagnostic Imaging Report ---
Indications: Pleural effusion. Technique and procedure: Informed consent for the procedure was obtained. The risks, benefits, and alternatives to the procedure were discussed with the responsible green party. We were given verbal and written consent to proceed. Ultrasound used to localize optimal puncture site. Sterile prepping and draping of the right lower chest performed. Local anesthesia with 1% lidocaine. Dermatotomy made. Puncture of the pleural space using thoracentesis needle. Patient tolerated procedure well, without immediate complication. Intraprocedural findings: There was a small amount of pleural fluid demonstrated by ultrasound on the right side with the patient in the left lateral decubitus position. A very small percutaneous window was available. Patient was not able to sit up which may have provided a larger window. In either case, the amount of fluid was small. I was asked to perform a diagnostic thoracentesis on the right. Initial and only attempt yielded about 10 cc of thick cloudy dark yellow fluid. A second thoracentesis was not attempted given the high risk of pneumothorax. There was not enough fluid to warrant a therapeutic procedure with suction, etc. Followup chest x-ray is pending. Impression: Successful ultrasound-guided right sided diagnostic thoracentesis, yielding 10 cc of thick, cloudy fluid
--- NOTE | 2017-09-26 15:05 | Diagnostic Imaging Report ---
Indication: Post thoracentesis Comparison: 09/25/17 A single view chest radiograph was obtained. Findings: No pneumothorax seen following thoracentesis on the right. Bilateral basilar atelectasis associated with blunting of both costophrenic angles again noted. Heart size is stable. Impression: Status post thoracentesis. No pneumothorax seen.
[2017-09-26 15:40] LABS: APPEARANCE, BODY FLUID SLIGHTLY CLOUDY; BD FL SOURCE THORACENTESIS; BD FL VOLUME 5 mL
[2017-09-26 15:41] LABS: BODY FLUID NUCLEATED CELLS 3600 /CUMM; BODY FLUID RBC 12275 /CUMM; MONONUCLEAR WBC 95 %; POLYMORPHONUCLEAR WBC 3 %
[2017-09-26 16:00] VITALS: BP 100/69
--- NOTE | 2017-09-26 16:10 | Diagnostic Imaging Report ---
Indication: Dyspnea. Bilateral pleural effusions. Technique: Continuous helical transaxial imaging of the chest was obtained from the thoracic inlet to the upper abdomen during rapid intravenous contrast administration. Arterial phase of enhancement obtained. Coronal 2-D reformats were also obtained and maximum intensity projection images in multiple planes. Study obtained in a Siemens sensation [address] Automatic Exposure Control was utilized. Total Dose length Product (DLP): [address] Dose Index Volume (CTDIvol): 12.62, 0.17, 12.62, 16.63 mGy Comparison: Noncontrast CT chest 09/17/17 Findings: The pulmonary artery is well opacified. There is no filling defect to suggest pulmonary embolus. There is no evidence of aortic dissection or aneurysm. Aorta is normal in caliber. The aortic arch is right-sided. 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 There is a focal web or stenosis at the proximal portion of the abdomen left subclavian artery (for example image 29 of series 7). Bilateral pleural effusions are present. These are mild to moderate in size but have decreased in size compared to the previous CT chest from 09/17/17. Patient has had bilateral thoracenteses, therapeutic on the left and more recently diagnostic thoracentesis on the right. The amount of pleural fluid is larger than expected based on recent ultrasound. Suspect the fluid is free flowing and difficult to see because of the lateral decubitus positioning. If a therapeutic thoracentesis is clinically indicated, recommend obtaining this procedure with the patient upright to obtain an adequate percutaneous window (patient has difficulty sitting up because of recent abdominal surgery and brannon). This was discussed with Dr. Stapleton. Some associated posterior basilar atelectasis noted. There is no airspace disease to suggest pneumonia. There are mild reticular nodular, small airways opacities in the upper lobes nature which is not known. This is somewhat asymmetrically worse in the right suprahilar region of the lung. Within the mediastinum, there are abnormal lymph nodes present. These range in size but measure up to 2-3 cm. Findings could be neoplastic or inflammatory in nature. Further clinical workup is needed. Trace pericardial effusion also noted. Impression: No evidence of pulmonary embolus or aortic dissection. Mild to moderate bilateral pleural effusions overall improved compared to the exam from 09/17/17. As I discussed with Dr. Stapleton, a thereapeutic thoracentesis is feasible if the patient is able to sit up. No evidence of airspace consolidation or pneumonia. Mild to moderate bilateral pleural effusions. Associated mild posterior basilar atelectasis. Mediastinal lymphadenopathy. Neoplastic versus inflammatory. Clinical workup and evaluation needed. Mild reticular nodular interstitial opacities in the upper lobes nonspecific. Findings discussed with Dr. Stapleton via telephone. The CT scanner at [facility] is accredited by the [employer] and the scans are performed using dose optimization techniques as appropriate to a performed exam including Automatic Exposure control.
[2017-09-26 20:00] VITALS: BP 110/74
[2017-09-26] MEDS: Dyna-Hex 2% Top Sol 2oz TOPIC SCH (20:08)
[2017-09-26] MEDS: TPN IV SCH (21:39)
[2017-09-26] MEDS: FAT EMULSION 20% IV SCH (21:39)
[2017-09-26] MEDS: ALPRAZolam 0.5mg tab ORAL PRN (22:19)
[2017-09-27] VITALS (7 sets, daily range): BP systolic 89–112; BP diastolic 59–83
[2017-09-27] MEDS: NovoLOG Insulin Flexpen SUBQ SCH ×4 (00:51→17:39)
[2017-09-27] MEDS: Norco 5mg/325mg tab ORAL PRN ×2 (07:42→18:15)
--- NOTE | 2017-09-27 12:17 | General Progress Note ---
Progress Note Progress Note Afebrile. Persistent tachycardia ? etiology thoracentesis yielded scant pleural fluid. Still requires O2 supplement Eating about 25% of meals. Getting TPN at 40ml/hr Abdomen soft, nicely healed, ileostomy stable/pink I&O satisfactory Imp. 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 etiology Plan: Continue TPN until eating better (albumin still low) discharge back to her home in [place] after she is stable re tachycardia and pulmonary status ROLF NELSON Sep 27, 2017 12:17
[2017-09-27 12:39] LABS: COMMENT,BODY FLUID PATHOLOGIST COMMENT
--- NOTE | 2017-09-27 12:51 | Pulmonology Progress Note ---
Assessment/Plan Assessment/Plan 1. Status post continent ostomy revision. 2. Postoperative wheezing and dyspnea. 3. Mod bilateral pleural effusions., s/p 1200 cc L thoracentesis 4. Leucopenia, etiology unclear SOB with exertion CT with moderate bilateral effusions +VANDANA rheum consult, Dr Reyes called again and I left msg disc w RN sent RA, C3, C4 Subjective Respiratory: Reports: shortness of breath Allergies: Coded Allergies: MORPHINE (Verified Allergy, Intermediate, pruritis, 09/12/17) SULFA (SULFONAMIDE ANTIBIOTICS) (Verified Allergy, Intermediate, vomiting , 09/12/17) Objective Last 24 Hour Vital Signs Date Time Temp Pulse Resp B/P (MAP) Pulse Ox O2 Delivery O2 Flow Rate FiO2 09/27/17 12:00 97.7 104 20 94/68 94 Nasal Cannula 2.0 09/27/17 08:41 97.4 09/27/17 08:00 114 09/27/17 08:00 97.4 108 18 106/73 94 Nasal Cannula 2.0 09/27/17 04:00 97.9 106 22 100/70 94 Nasal Cannula 2.0 09/27/17 04:00 106 09/27/17 00:00 99.1 111 20 100/75 95 Nasal Cannula 2.0 09/26/17 20:00 98.4 112 22 110/74 97 Nasal Cannula 2.0 09/26/17 20:00 112 09/26/17 19:30 Nasal Cannula 2.0 28 09/26/17 19:30 114 18 Nasal Cannula 2.0 28 09/26/17 19:30 93 Nasal Cannula 2.0 28 09/26/17 16:00 111 09/26/17 16:00 97.7 104 18 100/69 96 Nasal Cannula 2.0 Intake and Output 09/27/17 09/28/17 19:00 07:00 Intake Total 220 ml Balance 220 ml Intake Oral 60 ml IV Total 160 ml General Appearance: no acute distress Respiratory/Chest: decreased breath sounds Cardiovascular: regular rhythm, tachycardia Laboratory Tests 09/26/17 13:08: Body Fluid Source [Pending], Body Fluid Volume [Pending], Body Fluid Appearance Slightly cloudy, Body Fluid RBC 18712, Body Fluid Total Nucleated Cells 3600, Body Fluid Polynuclear WBCs (%) 3, Body Fluid Mononuclear WBCs (%) 95, Body Fluid Mesothelial Cells (%) 2, Body Fluid Glucose [Pending], Body Fluid Total Protein [Pending], Body Fluid Lactate Dehydrogenase [Pending], Body Fluid Comment Pathologist comment 09/27/17 08:40: Erythrocyte Sedimentation Rate 93H, Rheumatoid Factor Screen [Pending], Anti- Nuclear Antibody Screen [Pending], Complement C3 [Pending], Complement C4 [ Pending] Current Medications Medications (Trade) Dose Ordered Sig/Leatha Route PRN Reason Start Time Stop Time Status Last Admin Dose Admin Acetaminophen (Tylenol) 1,000 mg Q6H PRN ORAL temp>100.2 or headache 09/25/17 18:30 10/13/17 12:29 Acetaminophen/ Hydrocodone Bitart ([place] 5/325) 1 tab Q4H PRN ORAL Moderate Pain (Pain Scale 4-6) 09/25/17 18:45 09/27/17 18:44 09/27/17 07:42 Al Hydroxide/Mg Hydroxide (Mylanta) 30 ml Q2H PRN ORAL heartburn 09/25/17 17:15 10/20/17 17:14 Alprazolam (Xanax) 1 mg Q6H PRN ORAL For Anxiety 09/26/17 14:15 09/30/17 14:14 09/26/17 22:19 Chlorhexidine Gluconate (Leonela-Hex 2%) 1 applic DAILY@1999 TOPIC 09/25/17 20:00 10/15/17 19:59 09/26/17 20:08 Clotrimazole (Lotrimin) 1 applic EVERY 12 HOURS TOPIC 09/26/17 12:45 10/26/17 12:44 09/26/17 21:38 Dextrose 1,000 ml @ 0 mls/hr Q24H PRN IV PN interrupted or unavailable 09/25/17 18:00 10/25/17 17:59 Dextrose (Dextrose 50%) STAT PRN IV Hypoglycemia 09/25/17 18:00 10/25/17 17:59 Diphenhydramine HCl (Benadryl) 25 mg Q4H PRN ORAL PRURITUS 09/25/17 17:15 10/20/17 17:14 Fat Emulsion Intravenous 240 ml/Amino Acids/ Electrolytes/ Dextrose 960 ml @ 40 mls/hr Q24H IV 09/24/17 21:00 10/24/17 20:59 09/26/17 21:39 Insulin Aspart (NovoLOG) Q6HR SUBQ 09/25/17 18:30 10/14/17 18:29 09/27/17 00:51 Lorazepam (Ativan) 1 mg HSPRN PRN SL Sleep 09/25/17 18:00 10/02/17 17:59 09/26/17 20:07 Lorazepam (Ativan) 1 mg Q4H PRN SL Muscle Spasm 09/25/17 18:00 09/27/17 17:59 Ondansetron HCl (Zofran) 4 mg Q4H PRN IVP Nausea & Vomiting 09/25/17 20:30 10/13/17 12:29 Phytonadione (Vitamin K) 10 mg ONCE A WEEK SUBQ 09/28/17 21:00 10/21/17 20:59 Simethicone (Mylicon) 80 mg Q6H PRN ORAL bloating 09/25/17 18:00 10/25/17 17:59 FEDERICO MEEK Sep 27, 2017 12:51
[2017-09-27 13:15] LABS: PROTEIN, BODY FLUID 4.6 g/dL (.)
[2017-09-27 14:05] LABS: BD FL SOURCE THORACENTESIS; BD FL VOLUME 5 mL; LDH, BODY FLUID 353 U/L
[2017-09-27] MEDS: ALPRAZolam 0.5mg tab ORAL PRN (15:38)
[2017-09-27] MEDS: Dyna-Hex 2% Top Sol 2oz TOPIC SCH (20:01)
[2017-09-27] MEDS: TPN IV SCH (21:27)
[2017-09-27] MEDS: FAT EMULSION 20% IV SCH (21:27)
[2017-09-28] VITALS: BP 93/63
[2017-09-28] MEDS: ALPRAZolam 0.5mg tab ORAL PRN ×3 (00:09→19:32)
[2017-09-28 04:00] VITALS: BP 90/64
[2017-09-28] MEDS: NovoLOG Insulin Flexpen SUBQ SCH ×4 (06:00→17:14)
[2017-09-28 08:00] VITALS: BP 104/73
[2017-09-28 08:18] LABS: RHEUMATOID FACTOR SCREEN <10.0 IU/mL (0.0-13.9)
--- NOTE | 2017-09-28 10:24 | General Progress Note ---
Progress Note Progress Note Afebrile. Persistent tachycardia especially getting out of bed to the commode ( 145). Still on O2 nasal cannula Eating 25% + TPN 40ml/hr Abdomen soft, incisions nicely healed Urine 1200 Ileostomy 400 Imp. 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 Stapleton f/u labs in ROLF MOHR Sep 28, 2017 10:24
--- NOTE | 2017-09-28 11:05 | Pulmonology Progress Note ---
Assessment/Plan Assessment/Plan 1. Status post continent ostomy revision. 2. Postoperative wheezing and dyspnea. 3. Mod bilateral pleural effusions., mediastinal adenopathy 4. Leucopenia, etiology unclear SOB with exertion CT reviewed w radiology will do thoracentesis tomorrow sitting up; hope to tap both sides dry fluid is exudate, may need pleural biopsy mediastinal nodes will require biopsy when she returns home +VANDANA, C3 and C4 pending, RA neg rheum consult, Dr Reyes called again and I left msg disc at length with Dr Cancino Subjective Respiratory: Reports: shortness of breath, dyspnea on exertion Allergies: Coded Allergies: MORPHINE (Verified Allergy, Intermediate, pruritis, 09/12/17) SULFA (SULFONAMIDE ANTIBIOTICS) (Verified Allergy, Intermediate, vomiting , 09/12/17) Objective Last 24 Hour Vital Signs Date Time Temp Pulse Resp B/P (MAP) Pulse Ox O2 Delivery O2 Flow Rate FiO2 09/28/17 08:00 98.2 112 18 104/73 96 Nasal Cannula 2.0 09/28/17 07:54 108 09/28/17 07:05 96 Nasal Cannula 2.0 28 09/28/17 07:05 Nasal Cannula 2.0 28 09/28/17 04:00 110 09/28/17 04:00 97.5 110 20 90/64 100 Nasal Cannula 3.0 09/28/17 00:00 97.7 101 20 93/63 100 Nasal Cannula 3.0 09/28/17 00:00 99 09/27/17 20:20 110 95/60 09/27/17 20:00 97.0 109 16 89/59 100 Nasal Cannula 3.0 09/27/17 20:00 116 09/27/17 19:00 110 18 Nasal Cannula 2.0 28 09/27/17 19:00 93 Nasal Cannula 2.0 28 09/27/17 19:00 Nasal Cannula 2.0 28 09/27/17 16:00 128 09/27/17 16:00 97.9 111 20 112/83 96 Nasal Cannula 2.0 09/27/17 12:00 96 09/27/17 12:00 97.7 104 20 94/68 94 Nasal Cannula 2.0 General Appearance: no acute distress Respiratory/Chest: decreased breath sounds Cardiovascular: tachycardia Current Medications Medications (Trade) Dose Ordered Sig/Leatha Route PRN Reason Start Time Stop Time Status Last Admin Dose Admin Acetaminophen (Tylenol) 1,000 mg Q6H PRN ORAL temp>100.2 or headache 09/25/17 18:30 10/13/17 12:29 Acetaminophen/ Hydrocodone Bitart ([place] 5/325) 1 tab Q4H PRN ORAL Moderate Pain (Pain Scale 4-6) 09/28/17 10:15 10/05/17 10:14 Al Hydroxide/Mg Hydroxide (Mylanta) 30 ml Q2H PRN ORAL heartburn 09/25/17 17:15 10/20/17 17:14 Alprazolam (Xanax) 1 mg Q6H PRN ORAL For Anxiety 09/26/17 14:15 09/30/17 14:14 09/28/17 09:13 Chlorhexidine Gluconate (Leonela-Hex 2%) 1 applic DAILY@1999 TOPIC 09/25/17 20:00 10/15/17 19:59 09/27/17 20:01 Clotrimazole (Lotrimin) 1 applic EVERY 12 HOURS TOPIC 09/26/17 12:45 10/26/17 12:44 09/27/17 21:27 Dextrose 1,000 ml @ 0 mls/hr Q24H PRN IV PN interrupted or unavailable 09/25/17 18:00 10/25/17 17:59 Dextrose (Dextrose 50%) STAT PRN IV Hypoglycemia 09/25/17 18:00 10/25/17 17:59 Diphenhydramine HCl (Benadryl) 25 mg Q4H PRN ORAL PRURITUS 09/25/17 17:15 10/20/17 17:14 Fat Emulsion Intravenous 240 ml/Amino Acids/ Electrolytes/ Dextrose 960 ml @ 40 mls/hr Q24H IV 09/24/17 21:00 10/24/17 20:59 09/27/17 21:27 Insulin Aspart (NovoLOG) Q6HR SUBQ 09/25/17 18:30 10/14/17 18:29 09/27/17 00:51 Lorazepam (Ativan) 1 mg HSPRN PRN SL Sleep 09/25/17 18:00 10/02/17 17:59 09/26/17 20:07 Ondansetron HCl (Zofran) 4 mg Q4H PRN IVP Nausea & Vomiting 09/25/17 20:30 10/13/17 12:29 Phytonadione (Vitamin K) 10 mg ONCE A WEEK SUBQ 09/28/17 21:00 10/21/17 20:59 Simethicone (Mylicon) 80 mg Q6H PRN ORAL bloating 09/25/17 18:00 10/25/17 17:59 FEDERICO MEEK Sep 28, 2017 11:05
[2017-09-28 11:48] VITALS: BP 99/57
[2017-09-28 16:00] VITALS: BP 99/48
[2017-09-28] MEDS: Norco 5mg/325mg tab ORAL PRN (17:42)
[2017-09-28 20:00] VITALS: BP 98/69
[2017-09-28] MEDS: Dyna-Hex 2% Top Sol 2oz TOPIC SCH (20:03)
[2017-09-28] MEDS ORDERED: Phytonadione 10 mg/mL 1ml amp SUBQ SCH (21:00)
[2017-09-28] MEDS: FAT EMULSION 20% IV SCH (21:10)
[2017-09-28] MEDS: TPN IV SCH (21:10)
--- NOTE | 2017-09-28 23:15 | Consultation ---
DATE OF CONSULTATION: 09/28/2017 RHEUMATOLOGICAL CONSULTATION CONSULTING PHYSICIAN: Yoli Reyes M.D. REFERRING PHYSICIAN: Miles Stapleton M.D. I was asked by Dr. Stapleton to assist in this 47-year-old patient because of suspicion of autoimmune process. HISTORY OF PRESENT ILLNESS: The patient's medical problems started at the age of 17. She developed abdominal pain and intermittent bloody diarrhea. When she was 19, she was seen at [facility] in [place] where she was diagnosed as having Crohn disease, underwent ileostomy, had total colectomy, was placed on Asacol, and markedly improved. Between her age of 19 to the age of 23, she was in ileostomy. At the age of 23, in 1992, she underwent insertion of intraabdominal pouch and continued to be on Asacol for the next 4 years. She received an immunosuppression therapy for the next 15 years and was practically asymptomatic. In 1995, she developed a fistula near the pouch and was operated in [place]. At that time, she was told that her insurance is not compatible with the requirement in [place] and was advised to go to [place] to solve the problem with Dr. Cancino. She remained asymptomatic until 2016. Several months prior to the present admission, she developed multiple fistulae and stool leak around the pouch. One month prior to the present admission, she developed [id number] shortness of breath that did not interfere with her continuing her regular life. 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 When the fistula and the stool leak could not be controlled, she came to [place] and was seen by Dr. Cancino. Assessment by Dr. Cancino revealed that the pouch could not be repaired and the patient received again a standard ileostomy. At the same time, the patient was found to have pneumonia and pleural effusion and a positive VANDANA. Rheumatological consult was requested. It is to note during the surgical procedure that they established a new ileostomy, no evidence for Crohn disease was found by inspection or by Pathology. ALLERGIES: The patient is allergic to sulfa and morphine sulfate. MEDICATIONS: Prior to her arrival here, the patient was 8 months on Imuran 40 mg subcutaneous every 2 weeks, but no clinical impact of the fistula or any local inflammation was noted by the patient. FAMILY HISTORY: Her father at the age of 69 from a cerebrovascular accident. Her mother is 74 with COPD and cancer of the bladder. She has one sister in good health. She has no children. SOCIAL HISTORY: She is . She was born in [place]. This is the first time that she has been assessed by general surgical team. HABITS: The patient smoked 25 years, but discontinued smoking 5 years ago. She denied drinking except social drinking, which are infrequent according to the patient and she denied the use of illicit drugs. REVIEW OF SYSTEMS: CARDIOVASCULAR: The patient denied any chest pain, shortness of breath until about a month prior to the present admission. She has no palpitations and no dizziness. PULMONARY: The patient has dry cough. No expectoration and no wheezing. GASTROINTESTINAL: Her appetite is poor for the last 2 months with her weight oscillating around 125 pounds now for many years. She has no dysphagia, no dyspepsia. The patient has no bowel movement disorder. Her main problem is the fistula and the stool leak, but not the stool itself. GENITOURINARY: The patient denied any dysuria, frequency, or incontinence. Nocturia is 0 to 1. JOINT: The patient denies any pain, swelling, stiffness, cold extremities, photosensitivity, dry eyes, dry mouth, or alopecia. SKIN: She denies any rash. CENTRAL NERVOUS SYSTEM: Her sleep is of poor quality and she wakes up tired now for the last several years. She has no numbness, tingling, seizure disorder, and has no headache. GYNECOLOGIC HISTORY: She started her menses at the age of 13 and it was regular until about a year ago. She is 0, para 0. PHYSICAL EXAMINATION: VITAL SIGNS: Blood pressure is 99/57, pulse is 110, respirations were 18, temperature 97.1. HEENT: Eyes were normal. Pupils were round, equal, and reacting to light. Sclerae was white. Conjunctivae were pink. Extraocular movements were normal. Temporal arteries were palpable bilaterally. There was bilateral temporal wasting. Visual mercado to confrontation were normal. Neglect sign was negative. There was no evidence of conjunctivitis, uveitis, or iridocyclitis. ENT, mucous membranes were not dehydrated. Auditory canals were clear and tympanic membranes could not be visualized. Nasal cavity was not congested. Nasal septum was intact. Soft palate was free of ulcerations. Pharynx was clear from exudate or tonsillar hypertrophy. Uvula jackie to phonation. Tongue was moist, midline, and normally papillated. NECK: Supple. There were no goiter. No mass. No lymphadenopathy. There was no JVD. No bruit. Carotid upstroke was 2+. LUNGS: Clear with decreased breath sounds posteriorly and left laterally. There was no rhonchi, no rales, no wheezing. There was no friction rub. HEART: PMI was in the 4th left intercostal space in midclavicular line. There was normal S1 and normal S2. There was no murmur. No arrhythmia. No S3. No S4. No pericardial rub. ABDOMEN: Soft, nontender without organomegaly. There were no masses palpable. Normal bowel sounds without bruits. There was no guarding. No rebound tenderness. No ascites. No hernia. No CVA tenderness. Liver span was 8 cm, smooth, and nontender. The ileostomy pouch functions well. EXTREMITIES: No cyanosis, no clubbing, and no edema. Extremities were warm. NEUROLOGIC: Reflexes in biceps, triceps, and brachioradialis were present. Patellar retinaculum was present. Plantar were in flexion. Cranial nerves from II through XII were symmetric and equal. Cerebellar function, there was no tremor. No nystagmus. No extrapyramidal rigidity. Sensory exam to pinprick, cotton touch, and position are grossly normal. Motor strength was 5/5 against resistance in upper and lower extremities in proximal and distal muscles. JOINT: Passive range of motion of shoulder, elbow, wrist, MCP, PIP, and DIP were normal. There were no nail changes. Passive range of motion of hips, knees. Ankles and feet were normal as well. There was no warmth, swelling, or tenderness. There was left trochanteric bursitis. LABORATORY DATA: An VANDANA was found positive on 09/17/2017. Rheumatoid factor was not detected. C3 and C4 were ordered on 09/27/2017 and they are pending. I could not find ESR, CRP, or VANDANA titer. IMPRESSION: The patient has a longstanding Crohn disease and an autoimmune process. It is likely associated with autoimmune marker of other syndromes such as VANDANA and rheumatoid factor. There is no evidence and associated new autoimmune process based on the history and physical examination. However, I already initiated workup that include inflammatory autoimmune marker to ascertain his current autoimmune status and any confusion in the future. Thank you, Dr. Stapleton, for allowing me to participate in this interesting case. Yoli Reyes M.D. DR: Vaishnavi JOB#: [id number] CC:
[2017-09-29] VITALS: BP 93/67
[2017-09-29] MEDS: LORazepam 1mg tab SL PRN (03:09)
[2017-09-29 04:00] VITALS: BP 93/75
[2017-09-29 05:23] LABS: MEAN CORPUSCULAR HEMOGLOBIN 30.5 PG (27.0-31.0); MEAN CORPUSCULAR HGB CONC 34.2 G/DL (32.0-36.0); MEAN CORPUSCULAR VOLUME 89 FL (80-99); MEAN PLATELET VOLUME 10.1 FL (6.5-10.1); PLATELET COUNT 234 K/UL (150-450); RED BLOOD COUNT 4.36 M/UL (4.20-5.40); RED CELL DISTRIBUTION WIDTH 15.4 % (11.6-14.8)
[2017-09-29 05:34] LABS: PROTHROMBIN TIME 10.2 SEC (9.30-11.50)
[2017-09-29 05:53] LABS: ALANINE AMINOTRANSFERASE 38 U/L (12-78); ALBUMIN/GLOBULIN RATIO 0.6 (1.0-2.7); ANION GAP 7 mmol/L (5-15); ASPARTATE AMINO TRANSFERASE 31 U/L (15-37); CARBON DIOXIDE 29 MMOL/L (21-32); CHLORIDE 102 MMOL/L (98-107); CREATININE 0.6 MG/DL (0.55-1.30); GLOMERULAR FILTRATION RATE > 60 mL/min (>60); POTASSIUM 3.4 MMOL/L (3.5-5.1); SODIUM 138 MMOL/L (136-145); TOTAL PROTEIN 7.8 G/DL (6.4-8.2)
[2017-09-29] MEDS: NovoLOG Insulin Flexpen SUBQ SCH ×4 (06:00→17:12)
[2017-09-29 08:00] VITALS: BP 93/68
[2017-09-29] MEDS: Norco 5mg/325mg tab ORAL PRN ×2 (09:09→13:17)
--- NOTE | 2017-09-29 10:10 | General Progress Note ---
Progress Note Progress Note Afebrile. Eating better 50% of meals Abdomen soft, flat I&O satisfactory. WBC down again 3000 K 3.4 Urine [address] Reyes's consultaion Imp. Bilateral pleural effusions and mediastinal lymphadenopathy ? etiology Plan: To have thoracentesis this morning Continue TPN another 24 hours @40ml/hr ROLF NELSON Sep 29, 2017 10:10
[2017-09-29] MEDS ORDERED: Lidocaine 1% Plain 30 ml INJ ONE (11:00)
[2017-09-29 12:00] VITALS: BP 97/60
[2017-09-29 12:19] LABS: APPEARANCE,URINE SLIGHTLY CLOUDY; KETONES,URINE NEGATIVE (NEGATIVE); LEUKOCYTE ESTERASE ,URINE 1+ (NEGATIVE); NITRITE,URINE NEGATIVE (NEGATIVE); PH,URINE 5 (4.5-8.0); PROTEIN,URINE NEGATIVE (NEGATIVE); UROBILINOGEN,URINE NORMAL MG/DL (0.0-1.0)
[2017-09-29 12:32] LABS: BACTERIA,URINE FEW /HPF; MUCUS,URINE FEW /LPF (NONE/OCC); SQUAMOUS EPITHELIAL CELL,UR FEW /LPF (NONE/OCC)
--- NOTE | 2017-09-29 13:07 | Diagnostic Imaging Report ---
Indication: SOB Technique: One view of the chest Comparison: 09/26/2017 Findings: Right-sided pleural effusion appears slightly smaller than on the previous exam. Left-sided pleural effusion appears similar. Mild interstitial congestive changes persists. Atelectasis at the left lung base persists. Right arm PICC again demonstrated. Right-sided aortic arch again demonstrated Impression: Decreased right-sided pleural effusion. Stable left-sided pleural effusion Persistent interstitial congestion Other stable findings as described
--- NOTE | 2017-09-29 13:26 | Brief Operative Note ---
Immediate Post Operative Note Operative Note Chief Complaint: SOB Pre-op Diagnosis: Bilat pleural effusion Procedure: Bilat thoracentesis Post-op Diagnosis: same Post-op Diagnosis: same as pre-op Findings: consistent w/pre-op dx studies Surgeon: Praveen KYLE Anesthesia: local Specimen: yes - bilat pleural fluid saved for lab if necessary Complications: none Condition: stable Fluids: none Estimated Blood Loss: none Drains: none Implant(s) used?: No DIANA KYLE M.D. Sep 29, 2017 13:26
--- NOTE | 2017-09-29 13:33 | Diagnostic Imaging Report ---
Indication: SOB, status post thoracentesis Technique: One view of the chest Comparison: 4 hours earlier Findings: Interim resolution of previously demonstrated right-sided pleural effusion. No pneumothorax demonstrated. Moderate to large left pleural effusion persists. Right arm PICC remains. Right-sided aortic arch again demonstrated Impression: Resolved right-sided pleural effusion, post right thoracentesis. No radiographically evident complication
--- NOTE | 2017-09-29 13:35 | Diagnostic Imaging Report ---
Indication: Status post left thoracentesis Technique: One view of the chest Comparison: One half hour earlier Findings: Interim complete or near complete resolution of previously demonstrated large left pleural effusion. There is some residual costophrenic angle blunting and atelectasis. No gross pneumothorax. Right lung and pleural space remain clear. Heart size is normal. Right-sided aortic arch again demonstrated. Calcification is noted in the upper abdomen Impression: Resolved or nearly resolved left pleural effusion, status post thoracentesis. No radiographically evident complication
--- NOTE | 2017-09-29 14:17 | Pulmonology Progress Note ---
Assessment/Plan Assessment/Plan 1. Status post continent ostomy revision. 2. Postoperative wheezing and dyspnea. 3. Mod bilateral pleural effusions., mediastinal adenopathy 4. Leucopenia, etiology unclear RA sat now 94% after tap done bilateral 550 cc removed from each side, sent to lab she may travel home soon and seek attention to: Pleural biopsy, mediastinal nodes biopsy +VANDANA, C3 and C4 pending, RA neg rheum consult, Dr Reyes reviewed disc with Dr Cancino Subjective Respiratory: Denies: dry cough, shortness of breath Allergies: Coded Allergies: MORPHINE (Verified Allergy, Intermediate, pruritis, 09/12/17) SULFA (SULFONAMIDE ANTIBIOTICS) (Verified Allergy, Intermediate, vomiting , 09/12/17) Objective Last 24 Hour Vital Signs Date Time Temp Pulse Resp B/P (MAP) Pulse Ox O2 Delivery O2 Flow Rate FiO2 09/29/17 12:00 97.0 89 18 97/60 97 Nasal Cannula 3.0 09/29/17 08:00 97.3 109 18 93/68 95 Nasal Cannula 3.0 09/29/17 07:35 102 09/29/17 04:00 106 09/29/17 04:00 97.7 105 18 93/75 100 Nasal Cannula 3.0 09/29/17 00:00 95 09/29/17 00:00 97.0 96 18 93/67 96 Nasal Cannula 2.0 09/28/17 20:00 97.7 108 18 98/69 95 Nasal Cannula 2.0 09/28/17 20:00 101 09/28/17 19:36 Nasal Cannula 2.0 28 09/28/17 19:36 95 Nasal Cannula 2.0 28 09/28/17 16:00 98.2 113 18 99/48 95 Nasal Cannula 2.0 09/28/17 15:42 118 Intake and Output 09/29/17 09/30/17 19:00 07:00 Intake Total 40 ml Balance 40 ml IV Total 40 ml General Appearance: no acute distress HEENT: atraumatic Respiratory/Chest: lungs clear Cardiovascular: normal rate Laboratory Tests 09/29/17 04:45: White Blood Count 3.0L, Red Blood Count 4.36, Hemoglobin 13.3, Hematocrit 38.8, Mean Corpuscular Volume 89, Mean Corpuscular Hemoglobin 30.5, Mean Corpuscular Hemoglobin Concent 34.2, Red Cell Distribution Width 15.4H, Platelet Count 234, Mean Platelet Volume 10.1, Neutrophils (%) (Auto) , Lymphocytes (%) (Auto) , Monocytes (%) (Auto) , Eosinophils (%) (Auto) , Basophils (%) (Auto) , Erythrocyte Sedimentation Rate 47H, Prothrombin Time 10.2, Prothromb Time International Ratio 1.0, Activated Partial Thromboplast Time 31, Sodium Level 138, Potassium Level 3.4L, Chloride Level 102, Carbon Dioxide Level 29, Anion Gap 7, Blood Urea Nitrogen 9, Creatinine 0.6, Estimat Glomerular Filtration Rate > 60, Glucose Level 98, Calcium Level 9.0, Total Bilirubin 0.4, Aspartate Amino Transf (AST/SGOT) 31, Alanine Aminotransferase (ALT/SGPT) 38, Alkaline Phosphatase 226H, C-Reactive Protein, Quantitative 3.1H, Total Protein 7.8, Albumin 2.8L, Globulin 5.0, Albumin/Globulin Ratio 0.6L, Anti-Double Strand DNA Antibody [Pending] 09/29/17 09:11: Urine Color Yellow, Urine Appearance Slightly cloudy, Urine pH 5, Urine Specific Kinzers 1.020, Urine Protein Negative, Urine Glucose (UA) Negative, Urine Ketones Negative, Urine Occult Blood 3+H, Urine Nitrite Negative, Urine Bilirubin Negative, Urine Urobilinogen Normal, Urine Leukocyte Esterase 1+H, Urine RBC 10-15H, Urine WBC 2-4, Urine Squamous Epithelial Cells Few, Urine Bacteria Few, Urine Mucus FewH Current Medications Medications (Trade) Dose Ordered Sig/Leatha Route PRN Reason Start Time Stop Time Status Last Admin Dose Admin Acetaminophen (Tylenol) 1,000 mg Q6H PRN ORAL temp>100.2 or headache 09/25/17 18:30 10/13/17 12:29 Acetaminophen/ Hydrocodone Bitart ([place] 5/325) 1 tab Q4H PRN ORAL Moderate Pain (Pain Scale 4-6) 09/28/17 10:15 10/05/17 10:14 09/29/17 13:17 Al Hydroxide/Mg Hydroxide (Mylanta) 30 ml Q2H PRN ORAL heartburn 09/25/17 17:15 10/20/17 17:14 Alprazolam (Xanax) 1 mg Q6H PRN ORAL For Anxiety 09/26/17 14:15 09/30/17 14:14 09/28/17 19:32 Chlorhexidine Gluconate (Leonela-Hex 2%) 1 applic DAILY@2000 TOPIC 09/25/17 20:00 10/15/17 19:59 09/28/17 20:03 Clotrimazole (Lotrimin) 1 applic EVERY 12 HOURS TOPIC 09/26/17 12:45 10/26/17 12:44 09/27/17 21:27 Dextrose 1,000 ml @ 0 mls/hr Q24H PRN IV PN interrupted or unavailable 09/25/17 18:00 10/25/17 17:59 Dextrose (Dextrose 50%) STAT PRN IV Hypoglycemia 09/25/17 18:00 10/25/17 17:59 Diphenhydramine HCl (Benadryl) 25 mg Q4H PRN ORAL PRURITUS 09/25/17 17:15 10/20/17 17:14 Fat Emulsion Intravenous 240 ml/Amino Acids/ Electrolytes/ Dextrose 960 ml @ 40 mls/hr Q24H IV 09/24/17 21:00 09/29/17 20:59 09/28/17 21:10 Fat Emulsion Intravenous 240 ml/Amino Acids/ Electrolytes/ Dextrose 960 ml @ 40 mls/hr Q24H IV 09/29/17 21:00 10/29/17 20:59 Insulin Aspart (NovoLOG) Q6HR SUBQ 09/25/17 18:30 10/14/17 18:29 09/27/17 00:51 Lorazepam (Ativan) 1 mg HSPRN PRN SL Sleep 09/25/17 18:00 10/02/17 17:59 09/29/17 03:09 Ondansetron HCl (Zofran) 4 mg Q4H PRN IVP Nausea & Vomiting 09/25/17 20:30 10/13/17 12:29 Phytonadione (Vitamin K) 10 mg ONCE A WEEK SUBQ 09/28/17 21:00 10/21/17 20:59 09/28/17 21:11 Simethicone (Mylicon) 80 mg Q6H PRN ORAL bloating 09/25/17 18:00 10/25/17 17:59 FEDERICO MEEK Sep 29, 2017 14:17
[2017-09-29 15:55] VITALS: BP 92/63
[2017-09-29 19:32] LABS: APPEARANCE, BODY FLUID CLOUDY; BD FL VOLUME 24 mL
[2017-09-29 19:34] LABS: BODY FLUID NUCLEATED CELLS 1366 /CUMM; BODY FLUID RBC 1188 /CUMM; MONONUCLEAR WBC 86 %; POLYMORPHONUCLEAR WBC 6 %
[2017-09-29 19:35] LABS: BD FL SOURCE THORACENTESIS
[2017-09-29 19:36] LABS: APPEARANCE, BODY FLUID CLOUDY; BD FL SOURCE THORACENTESIS; BD FL VOLUME 24 mL; BODY FLUID NUCLEATED CELLS 2799 /CUMM; BODY FLUID RBC 4710 /CUMM
[2017-09-29 19:37] LABS: MONONUCLEAR WBC 85 %; POLYMORPHONUCLEAR WBC 7 %
[2017-09-29] MEDS: ALPRAZolam 0.5mg tab ORAL PRN (19:53)
[2017-09-29 20:00] VITALS: BP 106/59
[2017-09-29] MEDS: Dyna-Hex 2% Top Sol 2oz TOPIC SCH (20:53)
[2017-09-29] MEDS ORDERED: FAT EMULSION 20% IV SCH (21:00)
[2017-09-29] MEDS ORDERED: TPN IV SCH (21:00)
[2017-09-30] VITALS (7 sets, daily range): BP systolic 87–126; BP diastolic 61–80
[2017-09-30] MEDS: Norco 5mg/325mg tab ORAL PRN ×3 (00:07→18:30)
[2017-09-30 05:59] LABS: COMPLEMENT C3 140 mg/dL (82-167); COMPLEMENT C4 24 mg/dL (14-44)
[2017-09-30] MEDS: NovoLOG Insulin Flexpen SUBQ SCH ×4 (06:00→17:55)
[2017-09-30] MEDS ORDERED: ALPRAZolam 0.5mg tab ORAL PRN (10:20)
--- NOTE | 2017-09-30 10:22 | General Progress Note ---
Progress Note Progress Note Afebrile. Dyspnea resolved after bilateral thoracentesis yesterday. Eating a bit better. I&O satisfactory Abdomen soft. Luis/sutures removed and steristrips applied - well healed x 2 Imp. Etiology for dyspnea, effusions, tachycardia still unclear Improving Plan: Transfer back to [facility] One more day of TPN f/u labs in AM she will make travel arrangements to return home ROLF NELSON Sep 30, 2017 10:22
[2017-09-30 11:54] LABS: PROTEIN, BODY FLUID 5.1 g/dL (.); PROTEIN, BODY FLUID 5.4 g/dL (.)
[2017-09-30] MEDS ORDERED: Simethicone 80mg tab ORAL PRN (12:30)
[2017-09-30] MEDS ORDERED: Acetaminophen 650mg/20.3ml ORAL PRN (12:30)
[2017-09-30] MEDS: ALPRAZolam 0.5mg tab ORAL PRN (12:37)
[2017-09-30] MEDS ORDERED: Dextrose 10% 1,000 ML IV PRN (13:00)
--- NOTE | 2017-09-30 17:26 | Pulmonology Progress Note ---
Assessment/Plan Assessment/Plan Assessment/Plan 1. Status post continent ostomy revision. 2. Postoperative wheezing and dyspnea. 3. Mod bilateral pleural effusions., mediastinal adenopathy 4. Leukopenia, etiology unclear stable on RA pain controlled fu cxr monday to asses if need for repeat thoracetnsis 550 cc removed from each side, sent to lab FFriday she may travel home soon and seek attention to: Pleural biopsy, mediastinal nodes biopsy +VANDANA, C3 and C4 pending, RA neg rheum consult, Dr Reyes reviewed disc with Dr Cancino Subjective Constitutional: Reports: no symptoms HEENT: Repors: no symptoms Respiratory: Reports: no symptoms Cardiovascular: Reports: no symptoms Gastrointestinal/Abdominal: Reports: diarrhea Genitourinary: Reports: no symptoms Neurologic: Reports: no symptoms Allergies: Coded Allergies: MORPHINE (Verified Allergy, Intermediate, pruritis, 09/12/17) SULFA (SULFONAMIDE ANTIBIOTICS) (Verified Allergy, Intermediate, vomiting , 09/12/17) Subjective diong well pain fairly well controlled no cp nv or bleeding toelratin gpo oob Objective Last 24 Hour Vital Signs Date Time Temp Pulse Resp B/P (MAP) Pulse Ox O2 Delivery O2 Flow Rate FiO2 09/30/17 16:00 98.6 105 18 105/72 97 Room Air 09/30/17 12:00 98.1 103 17 110/80 98 Room Air 09/30/17 10:46 97.3 09/30/17 08:00 114 09/30/17 08:00 101 09/30/17 08:00 97.3 114 16 103/70 93 Room Air 09/30/17 04:00 97.2 106 12 87/61 93 Room Air 09/30/17 04:00 98 09/30/17 00:00 117 09/30/17 00:00 97.9 99 16 126/65 95 Room Air 09/29/17 20:00 112 09/29/17 20:00 98.2 101 16 106/59 96 Room Air 09/29/17 19:56 95 Room Air 09/29/17 19:56 Room Air Intake and Output 09/30/17 10/01/17 19:00 07:00 Intake Total 370 ml Output Total 1300 ml Balance -930 ml Intake Oral 240 ml IV Total 120 ml Other 10 ml Output Urine Total 800 ml Stool Total 350 ml Other 150 ml # Voids 2 General Appearance: WD/WN HEENT: atraumatic, anicteric Respiratory/Chest: lungs clear, normal breath sounds Cardiovascular: normal rate, regularly irregular Abdomen: tender Extremities: no cyanosis Neurologic/Psychiatric: alert, oriented x 3 Microbiology Date/Time Source Procedure Growth Status 09/29/17 12:30 Pleural Fluid Gram Stain - Final Resulted 09/29/17 12:30 Pleural Fluid Body Fluid Culture Pending Resulted 09/29/17 12:30 Pleural Fluid Gram Stain - Final Resulted 09/29/17 12:30 Pleural Fluid Body Fluid Culture Pending Resulted Current Medications Medications (Trade) Dose Ordered Sig/Leatha Route PRN Reason Start Time Stop Time Status Last Admin Dose Admin Acetaminophen (Tylenol) 1,000 mg Q6H PRN ORAL temp>100.2 or headache 09/30/17 12:30 10/13/17 12:29 Acetaminophen/ Hydrocodone Bitart ([place] 5/325) 1 tab Q4H PRN ORAL Moderate Pain (Pain Scale 4-6) 09/30/17 13:45 10/05/17 13:44 Al Hydroxide/Mg Hydroxide (Mylanta) 30 ml Q2H PRN ORAL heartburn 09/30/17 12:30 10/20/17 12:29 Alprazolam (Xanax) 1 mg Q6H PRN ORAL For Anxiety 09/30/17 12:25 10/04/17 12:24 09/30/17 12:37 Chlorhexidine Gluconate (Leonela-Hex 2%) 1 applic DAILY@1999 TOPIC 09/30/17 20:00 10/15/17 19:59 Clotrimazole (Lotrimin) 1 applic EVERY 12 HOURS TOPIC 09/30/17 21:00 10/26/17 12:44 Dextrose 1,000 ml @ 0 mls/hr Q24H PRN IV PN interrupted or unavailable 09/30/17 13:00 10/25/17 12:59 Dextrose (Dextrose 50%) STAT PRN IV Hypoglycemia 09/30/17 12:30 10/25/17 12:29 Diphenhydramine HCl (Benadryl) 25 mg Q4H PRN ORAL PRURITUS 09/30/17 12:30 10/20/17 12:29 Fat Emulsion Intravenous 240 ml/Amino Acids/ Electrolytes/ Dextrose 960 ml @ 40 mls/hr Q24H IV 09/29/17 21:00 09/30/17 20:59 09/29/17 20:54 Fat Emulsion Intravenous 240 ml/Amino Acids/ Electrolytes/ Dextrose 960 ml @ 40 mls/hr Q24H IV 09/30/17 21:00 10/29/17 20:59 Insulin Aspart (NovoLOG) Q6HR SUBQ 09/30/17 13:00 10/14/17 12:59 Lorazepam (Ativan) 1 mg HSPRN PRN SL Sleep 09/30/17 20:00 10/02/17 19:59 Ondansetron HCl (Zofran) 4 mg Q4H PRN IVP Nausea & Vomiting 09/30/17 12:30 10/13/17 12:29 Phytonadione (Vitamin K) 10 mg ONCE A WEEK SUBQ 10/05/17 21:00 10/21/17 20:59 Simethicone (Mylicon) 80 mg Q6H PRN ORAL bloating 09/30/17 12:30 10/25/17 12:29 HUMBERTO RIVERA DO Sep 30, 2017 17:26
[2017-09-30] MEDS ORDERED: LORazepam 1mg tab SL PRN (20:00)
[2017-09-30] MEDS: Dyna-Hex 2% Top Sol 2oz TOPIC SCH (20:14)
[2017-09-30] MEDS ORDERED: FAT EMULSION 20% IV SCH (21:00)
[2017-09-30] MEDS ORDERED: TPN IV SCH (21:00)
[2017-10-01 04:00] VITALS: BP 99/69
[2017-10-01] MEDS: NovoLOG Insulin Flexpen SUBQ SCH ×4 (05:35→17:52)
[2017-10-01 05:36] LABS: MEAN CORPUSCULAR HEMOGLOBIN 29.3 PG (27.0-31.0); MEAN CORPUSCULAR HGB CONC 33.1 G/DL (32.0-36.0); MEAN CORPUSCULAR VOLUME 89 FL (80-99); MEAN PLATELET VOLUME 9.6 FL (6.5-10.1); PLATELET COUNT 232 K/UL (150-450); RED BLOOD COUNT 4.38 M/UL (4.20-5.40); RED CELL DISTRIBUTION WIDTH 15.3 % (11.6-14.8); WHITE BLOOD COUNT 3.3 K/UL (4.8-10.8)
[2017-10-01 05:59] LABS: ALANINE AMINOTRANSFERASE 33 U/L (12-78); ALBUMIN/GLOBULIN RATIO 0.6 (1.0-2.7); ANION GAP 7 mmol/L (5-15); ASPARTATE AMINO TRANSFERASE 36 U/L (15-37); CALCIUM 8.9 MG/DL (8.5-10.1); CARBON DIOXIDE 28 MMOL/L (21-32); CHLORIDE 104 MMOL/L (98-107); CREATININE 0.7 MG/DL (0.55-1.30); GLOMERULAR FILTRATION RATE > 60 mL/min (>60); POTASSIUM 3.8 MMOL/L (3.5-5.1); SODIUM 139 MMOL/L (136-145); TOTAL PROTEIN 7.3 G/DL (6.4-8.2)
[2017-10-01 06:16] LABS: BAND NEUTROPHILS % (MANUAL) 0 % (0-8); BASOPHILS % (MANUAL) 0 % (0-2); EOSINOPHILS % (MANUAL) 10 % (0-3); LYMPHOCYTES % (MANUAL) 14 % (20-45); NEUTROPHILS % (MANUAL) 66 % (45-75); PLATELET ESTIMATE ADEQUATE; PLATELET MORPHOLOGY NORMAL; TOTAL CELLS COUNTED 100
[2017-10-01 08:00] VITALS: BP 105/72
[2017-10-01] MEDS: Norco 5mg/325mg tab ORAL PRN ×2 (10:01→19:04)
--- NOTE | 2017-10-01 10:02 | General Progress Note ---
Progress Note Progress Note AVSS with pulse 103-108. Denies shortness of breath and ambulates freely Eating 50%-75% of meals Abdomen soft, well healed, ileostomy stable Urine 1740 Ileostomy 755 WBC 3300 (was 3000) Hgb 12.8 Albumin 2.6 Imp. Improving work-up still in progress re etiology of bilat. pleural effusions, etc Plan: D/C TPN and remove PICC WOCN re discharge ileostomy supplies f/u labs in ROLF MOHR Oct 01, 2017 10:02
[2017-10-01 12:00] VITALS: BP 112/73
[2017-10-01] MEDS: ALPRAZolam 0.5mg tab ORAL PRN ×2 (13:44→21:42)
[2017-10-01 16:00] VITALS: BP 100/69
--- NOTE | 2017-10-01 18:28 | Pulmonology Progress Note ---
Assessment/Plan Assessment/Plan Assessment/Plan 1. Status post continent ostomy revision. 2. Postoperative wheezing and dyspnea. 3. Mod bilateral pleural effusions., mediastinal adenopathy 4. Leukopenia, etiology unclear stable on RA pain controlled fu cxr AM to asses if need for repeat thoracetnsis 550 cc removed from each side, sent to lab FFriday she may travel home soon and seek attention to: Pleural biopsy, mediastinal nodes biopsy +VANDANA, C3 and C4 pending, RA neg rheum consult, Dr Reyes reviewed disc with Dr Cancino Subjective Constitutional: Reports: no symptoms HEENT: Repors: no symptoms Respiratory: Reports: no symptoms Cardiovascular: Reports: no symptoms Gastrointestinal/Abdominal: Reports: no symptoms Genitourinary: Reports: no symptoms Allergies: Coded Allergies: MORPHINE (Verified Allergy, Intermediate, pruritis, 09/12/17) SULFA (SULFONAMIDE ANTIBIOTICS) (Verified Allergy, Intermediate, vomiting , 09/12/17) Subjective diong well pain fairly well controlled no cp nv or bleeding toelratin gpo oob no dizziness on RA Objective Last 24 Hour Vital Signs Date Time Temp Pulse Resp B/P (MAP) Pulse Ox O2 Delivery O2 Flow Rate FiO2 10/01/17 16:00 98.2 105 19 100/69 98 Room Air 10/01/17 12:00 97.1 100 18 112/73 95 Room Air 10/01/17 08:00 98.1 105 18 105/72 96 Room Air 10/01/17 04:00 98.6 108 18 99/69 94 Room Air 09/30/17 23:48 97.7 104 18 95/69 95 Room Air 09/30/17 20:01 98.4 104 20 117/65 96 Room Air General Appearance: WD/WN Respiratory/Chest: lungs clear, normal breath sounds Cardiovascular: normal rate, regular rhythm Abdomen: soft, non tender, non distended Extremities: no clubbing Skin: no rash, no lesions Neurologic/Psychiatric: alert, oriented x 3 Microbiology Date/Time Source Procedure Growth Status 09/29/17 12:30 Pleural Fluid Gram Stain - Final Resulted 09/29/17 12:30 Pleural Fluid Body Fluid Culture - Preliminary NO GROWTH AFTER 24 HOURS Resulted 09/29/17 12:30 Pleural Fluid Gram Stain - Final Resulted 09/29/17 12:30 Pleural Fluid Body Fluid Culture Pending Resulted Laboratory Tests 10/01/17 05:00: White Blood Count 3.3L, Red Blood Count 4.38, Hemoglobin 12.8, Hematocrit 38.7, Mean Corpuscular Volume 89, Mean Corpuscular Hemoglobin 29.3, Mean Corpuscular Hemoglobin Concent 33.1, Red Cell Distribution Width 15.3H, Platelet Count 232, Mean Platelet Volume 9.6, Neutrophils (%) (Auto) , Lymphocytes (%) (Auto) , Monocytes (%) (Auto) , Eosinophils (%) (Auto) , Basophils (%) (Auto) , Differential Total Cells Counted 100, Neutrophils % (Manual) 66, Lymphocytes % ( Manual) 14L, Monocytes % (Manual) 10, Eosinophils % (Manual) 10H, Basophils % ( Manual) 0, Band Neutrophils 0, Platelet Estimate Adequate, Platelet Morphology Normal, Sodium Level 139, Potassium Level 3.8, Chloride Level 104, Carbon Dioxide Level 28, Anion Gap 7, Blood Urea Nitrogen 6L, Creatinine 0.7, Estimat Glomerular Filtration Rate > 60, Glucose Level 102, Calcium Level 8.9, Total Bilirubin 0.4, Aspartate Amino Transf (AST/SGOT) 36, Alanine Aminotransferase ( ALT/SGPT) 33, Alkaline Phosphatase 204H, Total Protein 7.3, Albumin 2.6L, Globulin 4.7, Albumin/Globulin Ratio 0.6L Current Medications Medications (Trade) Dose Ordered Sig/Leatha Route PRN Reason Start Time Stop Time Status Last Admin Dose Admin Acetaminophen (Tylenol) 1,000 mg Q6H PRN ORAL temp>100.2 or headache 09/30/17 12:30 10/13/17 12:29 Acetaminophen/ Hydrocodone Bitart ([place] 5/325) 1 tab Q4H PRN ORAL Moderate Pain (Pain Scale 4-6) 09/30/17 13:45 10/05/17 13:44 10/01/17 10:01 Al Hydroxide/Mg Hydroxide (Mylanta) 30 ml Q2H PRN ORAL heartburn 09/30/17 12:30 10/20/17 12:29 Alprazolam (Xanax) 1 mg Q6H PRN ORAL For Anxiety 09/30/17 12:25 10/04/17 12:24 10/01/17 13:44 Chlorhexidine Gluconate (Leonela-Hex 2%) 1 applic DAILY@1999 TOPIC 09/30/17 20:00 10/15/17 19:59 09/30/17 20:14 Clotrimazole (Lotrimin) 1 applic EVERY 12 HOURS TOPIC 09/30/17 21:00 10/26/17 12:44 Dextrose 1,000 ml @ 0 mls/hr Q24H PRN IV PN interrupted or unavailable 09/30/17 13:00 10/25/17 12:59 Dextrose (Dextrose 50%) STAT PRN IV Hypoglycemia 09/30/17 12:30 10/25/17 12:29 Diphenhydramine HCl (Benadryl) 25 mg Q4H PRN ORAL PRURITUS 09/30/17 12:30 10/20/17 12:29 Fat Emulsion Intravenous 240 ml/Amino Acids/ Electrolytes/ Dextrose 960 ml @ 40 mls/hr Q24H IV 09/30/17 21:00 10/01/17 20:59 09/30/17 20:16 Insulin Aspart (NovoLOG) Q6HR SUBQ 09/30/17 13:00 10/14/17 12:59 Lorazepam (Ativan) 1 mg HSPRN PRN SL Sleep 09/30/17 20:00 10/02/17 19:59 10/01/17 01:02 Ondansetron HCl (Zofran) 4 mg Q4H PRN IVP Nausea & Vomiting 09/30/17 12:30 10/13/17 12:29 Phytonadione (Vitamin K) 10 mg ONCE A WEEK SUBQ 10/05/17 21:00 10/21/17 20:59 Simethicone (Mylicon) 80 mg Q6H PRN ORAL bloating 09/30/17 12:30 10/25/17 12:29 HUMBERTO RIVERA DO Oct 01, 2017 18:28
[2017-10-01 19:59] VITALS: BP 87/60
[2017-10-01 20:00] VITALS: BP 100/74
[2017-10-01] MEDS: Dyna-Hex 2% Top Sol 2oz TOPIC SCH (20:00)
[2017-10-02] VITALS (7 sets, daily range): BP systolic 90–99; BP diastolic 62–71
[2017-10-02 05:01] LABS: MEAN CORPUSCULAR HEMOGLOBIN 29.6 PG (27.0-31.0); MEAN CORPUSCULAR HGB CONC 33.4 G/DL (32.0-36.0); MEAN CORPUSCULAR VOLUME 89 FL (80-99); PLATELET COUNT 208 K/UL (150-450); RED BLOOD COUNT 4.15 M/UL (4.20-5.40); RED CELL DISTRIBUTION WIDTH 15.3 % (11.6-14.8); WHITE BLOOD COUNT 2.9 K/UL (4.8-10.8)
[2017-10-02 05:33] LABS: ANION GAP 8 mmol/L (5-15); CARBON DIOXIDE 27 MMOL/L (21-32); CHLORIDE 104 MMOL/L (98-107); CREATININE 0.6 MG/DL (0.55-1.30); GLOMERULAR FILTRATION RATE > 60 mL/min (>60); POTASSIUM 3.7 MMOL/L (3.5-5.1); SODIUM 139 MMOL/L (136-145)
--- NOTE | 2017-10-02 06:00 | Progress Note ---
DATE: 10/01/2017 SUBJECTIVE: The patient is awake, alert, afebrile and hemodynamically stable, and mostly comfortable. PHYSICAL EXAMINATION: VITAL SIGNS: Blood pressure is 100/74, pulse is 107, respirations of 20, and temperature 97.8. HEENT: Eyes were normal. ENT, mucous membranes were moist and intact. NECK: Supple with no JVD without lymph nodes. LUNGS: Clear. HEART: Normal sounds with regular beat. ABDOMEN: Soft and nontender with normal bowel sounds. EXTREMITIES: Warm without cyanosis, clubbing, or edema. LABORATORY DATA: Hemoglobin is 12.8, hematocrit 38.7, MCV of 89, WBC of 3.3, and platelets of 232. ESR and CRP were not done. BUN and creatinine are 6 and 0.7 respectively. Sodium is 139, potassium 3.8, chloride 104, CO2 is 28. Her albumin is 2.3. Serum globulin is 4.7. There is no hyperglobulinemia. IMPRESSION AND PLAN: The patient had leukopenia with elevated sedimentation rate that dropped with active immunosuppression. There is normal complement value. She had a positive vjnq-[id number] DNA antibody. Fluid analysis is not available as yet in regard to the chemical and cellular constitution. Therefore, a new mode of diagnosis of autoimmunity will need to wait until further data is available. Of note, the patient was more than two months without having any clinical effect. Follow up with ESR and CRP, an indication to inflammatory marker should continue. Yoli Reyes M.D. DR: SVETLANA JOB#: [id number] CC:
--- NOTE | 2017-10-02 07:45 | Progress Note ---
DATE: 09/29/2017 SUBJECTIVE: The patient underwent today bilateral pleurocentesis with a large amount of pleural fluid was removed from both sides. Following the procedure, the patient ended up feeling improved and shortness of breath subsided. PHYSICAL EXAMINATION: VITAL SIGNS: Blood pressure is 106/59, pulse is 96, respirations 16, and temperature 98.2. HEENT: Eyes are normal. ENT, mucous membranes are moist and intact. NECK: Supple with no JVD without lymph node. LUNGS: Clear. HEART: Normal sounds with irregular heart beats. There is near tachycardia at rest. ABDOMEN: Soft, flat, and nontender with normal bowel sounds. The ostomy site is clean. EXTREMITIES: Warm without cyanosis, clubbing, or edema. LABORATORY AND DIAGNOSTIC DATA: Hemoglobin is 13.3, hematocrit 38.8 with MCV of 89, WBC of 3.0, and platelets 234,000. 93 on 09/27, it is 47 on 09/29. BUN and creatinine are 9 and 0.6 respectively. Sodium is 136, potassium 3.4, chloride 102, and CO2 is 29. Her albumin is 2.8 and total protein is 7.8 and globulin is 5. Her CRP is 3.1. Chest x-ray showed complete resolution of pleural effusion following pleural tap, also left greater than the right. IMPRESSION: The patient has moderate elevation of ESR and CRP. She has borderline leukopenia and bilateral pleural effusion and positive VANDANA. The possibility that this is an autoimmune process is highly suspected. Whether it is related to systemic lupus or to another autoimmune process will be determined by followup and by analysis of the pleural fluid that currently is pending. However, systemic lupus is not involving formation of fistula. So, this autoimmune process is relate to the GI finding for the last two months corresponds well to vasculitis and to Crohn disease. oYli Reyes M.D. DR: SVETLANA JOB#: [id number] CC:
--- NOTE | 2017-10-02 07:45 | Progress Note ---
DATE: 10/01/2017 NOTE: "POOR AUDIO QUALITY" SUBJECTIVE: The patient is awake, alert, afebrile, and hemodynamically stable. She is persistently tachycardic. PHYSICAL EXAMINATION: VITAL SIGNS: Blood pressure is 117/65, pulse is 104, respirations were 20, temperature 98.4. HEENT: Eyes were normal. ENT, mucous membranes were moist and intact. NECK: Supple with no JVD, without lymph nodes. LUNGS: Clear without rhonchi, rales, or wheezing. HEART: With normal sounds with regular beats. There is tachycardia at rest. Sinus tachycardia on monitor. ABDOMEN: Soft and nontender with normal bowel sounds. Jejunostomy site is clean. EXTREMITIES: Warm without cyanosis, clubbing, or edema. LABORATORY AND DIAGNOSTIC DATA: No new laboratory data were available at the time of this dictation; however, previous laboratory tests had become available. Her complement levels C4 is 24. Her VANDANA is positive, however, only qualitative test was done. Rheumatoid factor is negative. Anti-DNA level antibody is positive 19. IMPRESSION: The patient has abnormality associated with systemic lupus; however, this is insufficient to make such a diagnosis based on this laboratory test because of the lack of specificity. BUN, creatinine, and electrolytes are normal. She developed mild leukopenia on 09/29/2017, specifically the antibiotic. The importance with immunosuppression; however, the patient has bilateral pleural effusion that might be a criteria for fluid analysis. protein content and interpreted for VANDANA in the fluid. Repeat laboratory tests will be done in the morning. Yoli Reyes M.D. DR: MILAGRO JOB#: [id number] CC:
[2017-10-02 08:10] LABS: BAND NEUTROPHILS % (MANUAL) 0 % (0-8); BASOPHILS % (MANUAL) 0 % (0-2); EOSINOPHILS % (MANUAL) 8 % (0-3); LYMPHOCYTES % (MANUAL) 14 % (20-45); NEUTROPHILS % (MANUAL) 58 % (45-75); PLATELET ESTIMATE ADEQUATE; PLATELET MORPHOLOGY NORMAL; TOTAL CELLS COUNTED 100
--- NOTE | 2017-10-02 09:28 | General Progress Note ---
Progress Note Progress Note AVSS with intermittent asymptomatic tachycardia. No respiratory distress Abdomen soft, stoma stable Urine 1900 Ileostomy 610 WBC 2900 BMP - wnl Imp. Improved r/o lupus or other cause of pleural effusions, etc Plan: TPN d/c'd - remove PICC Provide discharge supplies - WOCN seeing patient now Discharge in AM - given packet or reports for her local MDs f/u with me 1 week telephone appointment ROLF NELSON Oct 02, 2017 09:28
--- NOTE | 2017-10-02 10:13 | Wound Nurse Progress Note ---
Wound RN Progress Note Wound Consult seen patient as ordered. patient was provided with ostomy teaching and care again patient was able to perform return demonstration with removal of current ostomy bag,cleaning site, keeping site dry, protection of surrounding skin , was able to perform cutting , cut to fit ostomy was also applied by patient and was also able to properly place clip. provided patient with supplies for discharging. MD,patient and assigned RN made aware. EDIN BARFIELD Oct 02, 2017 10:13
[2017-10-02 11:35] LABS: COMMENT,BODY FLUID PATHOLOGIST COMMENT
[2017-10-02] MEDS: Hydrocortisone 1% Cr 15gm TOPIC SCH ×3 (12:11→18:14)
--- NOTE | 2017-10-02 12:41 | Pulmonology Progress Note ---
Assessment/Plan Assessment/Plan 1. Status post continent ostomy revision. 2. Postoperative wheezing and dyspnea. 3. Mod bilateral pleural effusions., mediastinal adenopathy 4. Leucopenia, etiology unclear she will travel home tomorrow and seek attention to: Pleural biopsy, mediastinal nodes biopsy rheum notes, Dr Reyes reviewed Subjective Respiratory: Denies: shortness of breath Allergies: Coded Allergies: MORPHINE (Verified Allergy, Intermediate, pruritis, 09/12/17) SULFA (SULFONAMIDE ANTIBIOTICS) (Verified Allergy, Intermediate, vomiting , 09/12/17) Objective Last 24 Hour Vital Signs Date Time Temp Pulse Resp B/P (MAP) Pulse Ox O2 Delivery O2 Flow Rate FiO2 10/02/17 12:00 98.0 108 18 99/71 95 Room Air 10/02/17 08:00 98.5 105 18 95/68 95 Nasal Cannula 2.0 10/02/17 05:00 100 18 96 Nasal Cannula 2.0 10/02/17 04:30 98.4 125 18 91/66 92 Room Air 10/02/17 00:00 97.8 103 18 90/62 93 Room Air 10/01/17 21:23 98.2 10/01/17 20:00 97.8 107 20 100/74 96 Room Air 10/01/17 19:59 87/60 10/01/17 16:00 98.2 105 19 100/69 98 Room Air General Appearance: no acute distress Respiratory/Chest: lungs clear Cardiovascular: regular rhythm, tachycardia Abdomen: soft, non tender Laboratory Tests 10/02/17 04:20: White Blood Count 2.9L, Red Blood Count 4.15L, Hemoglobin 12.3, Hematocrit 36.7L , Mean Corpuscular Volume 89, Mean Corpuscular Hemoglobin 29.6, Mean Corpuscular Hemoglobin Concent 33.4, Red Cell Distribution Width 15.3H, Platelet Count 208, Mean Platelet Volume 10.0, Neutrophils (%) (Auto) , Lymphocytes (%) (Auto) , Monocytes (%) (Auto) , Eosinophils (%) (Auto) , Basophils (%) (Auto) , Differential Total Cells Counted 100, Neutrophils % ( Manual) 58, Lymphocytes % (Manual) 14L, Monocytes % (Manual) 20H, Eosinophils % (Manual) 8H, Basophils % (Manual) 0, Band Neutrophils 0, Platelet Estimate Adequate, Platelet Morphology Normal, Sodium Level 139, Potassium Level 3.7, Chloride Level 104, Carbon Dioxide Level 27, Anion Gap 8, Blood Urea Nitrogen 8 , Creatinine 0.6, Estimat Glomerular Filtration Rate > 60, Glucose Level 81, Calcium Level 9.0 Current Medications Medications (Trade) Dose Ordered Sig/Leatha Route PRN Reason Start Time Stop Time Status Last Admin Dose Admin Acetaminophen (Tylenol) 1,000 mg Q6H PRN ORAL temp>100.2 or headache 09/30/17 12:30 10/13/17 12:29 Acetaminophen/ Hydrocodone Bitart ([place] 5/325) 1 tab Q4H PRN ORAL Moderate Pain (Pain Scale 4-6) 09/30/17 13:45 10/05/17 13:44 10/01/17 19:04 Al Hydroxide/Mg Hydroxide (Mylanta) 30 ml Q2H PRN ORAL heartburn 09/30/17 12:30 10/20/17 12:29 Alprazolam (Xanax) 1 mg Q6H PRN ORAL For Anxiety 09/30/17 12:25 10/04/17 12:24 10/01/17 21:42 Chlorhexidine Gluconate (Leonela-Hex 2%) 1 applic DAILY@1999 TOPIC 09/30/17 20:00 10/15/17 19:59 09/30/17 20:14 Clotrimazole (Lotrimin) 1 applic EVERY 12 HOURS TOPIC 09/30/17 21:00 10/26/17 12:44 Dextrose (Dextrose 50%) STAT PRN IV Hypoglycemia 09/30/17 12:30 10/25/17 12:29 Diphenhydramine HCl (Benadryl) 25 mg Q4H PRN ORAL PRURITUS 09/30/17 12:30 10/20/17 12:29 Hydrocortisone (Hydrocortisone) 1 applic TID TOPIC 10/02/17 10:30 11/01/17 10:29 10/02/17 12:11 Lorazepam (Ativan) 1 mg HSPRN PRN SL Sleep 09/30/17 20:00 10/02/17 19:59 10/01/17 01:02 Ondansetron HCl (Zofran) 4 mg Q4H PRN IVP Nausea & Vomiting 09/30/17 12:30 10/13/17 12:29 Simethicone (Mylicon) 80 mg Q6H PRN ORAL bloating 09/30/17 12:30 10/25/17 12:29 FEDERICO MEEK Oct 02, 2017 12:41
[2017-10-02] MEDS: ALPRAZolam 0.5mg tab ORAL PRN (14:09)
--- NOTE | 2017-10-02 15:25 | Diagnostic Imaging Report ---
Indication: COUGH Technique: One view of the chest Comparison: 09/29/2017 Findings: Small right and moderate left pleural effusions are now evident. Right arm PICC remains. Right-sided aortic arch is again demonstrated. Upper lung mercado appear clear. Upper abdominal surgical brannon are again demonstrated Impression: Small right and moderate left pleural effusions, recurrent since 09/29/2017
[2017-10-02] MEDS: Norco 5mg/325mg tab ORAL PRN (18:16)
[2017-10-03] VITALS: BP 89/72
[2017-10-03 04:00] VITALS: BP 96/66
--- NOTE | 2017-10-03 08:15 | Progress Note ---
DATE: 10/02/2017 SUBJECTIVE: The patient is awake, alert, afebrile, and hemodynamically stable. She has persistent tachycardia at rest without and borderline hypotension. PHYSICAL EXAMINATION: HEENT: Eyes were normal. ENT, mucous membranes were moist and intact. There was no evidence of conjunctivitis . Nasal mucosa was moist with soft palate ulceration. NECK: Supple with no JVD and without lymph nodes. LUNGS: Clear with decreased breath sounds on the left, more on the right laterally. HEART: Normal sounds with regular beats. There is tachycardia at rest. Sinus tachycardia on monitor. ABDOMEN: Soft and nontender with normal bowel sounds. Ileostomy site is clean. EXTREMITIES: No cyanosis, clubbing, or edema. LABORATORY AND DIAGNOSTIC DATA: Hemoglobin 12.0, hematocrit 39.7, MCV of 89, WBC of 2.9, and platelets are 208,000. Her BUN and creatinine are 8 and 0.6 respectively. Sodium is 139, potassium 3.7, chloride 104, and CO2 is 27. Again, ESR and CRP were not done inflammatory process is only to available where I can put straight line between any two points. Chest x-ray done today revealed bilateral pleural effusion, more on the right than the left. IMPRESSION AND PLAN: The patient has count with leukopenia, elevated anti-DNA double-stranded antibody, and laboratory marker were unavailable. the patient ____. I question whether the patient has autoimmune process clinically laboratory tests remained open. biopsy and lymph node biopsy findings and diagnosis, finally responded to steroid and immunosuppressive the combination of the two will allow to . The patient is cleared to be discharged in the morning. Yoli Reyes M.D. DR: MARIA EUGENIA JOB#: [id number] CC:
--- NOTE | 2017-10-03 08:36 | Diagnostic Imaging Report ---
Indications: Pleural effusion, shortness of breath Technique: Ultrasound used to localize optimal puncture site. Sterile prepping and draping right chest. Local anesthesia with 1% lidocaine. Under real-time ultrasound guidance, puncture pleural space using thoracentesis needle. Stylet removed. Catheter placed to vacuum bottle suction. Patient tolerated procedure well, without immediate complication. Findings: Intraprocedural imaging documents needle access into the pleural fluid collection . Impression: Successful ultrasound-guided thoracentesis
--- NOTE | 2017-10-03 08:36 | Diagnostic Imaging Report ---
Indications: Pleural effusion, shortness of breath Technique: Ultrasound used to localize optimal puncture site. Sterile prepping and draping left chest. Local anesthesia with 1% lidocaine. Under real-time ultrasound guidance, puncture pleural space using thoracentesis needle. Stylet removed. Catheter placed to vacuum bottle suction. Patient tolerated procedure well, without immediate complication. Findings: Intraprocedural imaging documents successful needle access into the pleural fluid Impression: Successful ultrasound-guided thoracentesis
[2017-10-03 08:41] LABS: BD FL SOURCE THORACENTESIS; BD FL VOLUME 24 mL; LDH, BODY FLUID 330 U/L; LDH, BODY FLUID 360 U/L
[2017-10-04 10:22] LABS: COMMENT,BODY FLUID PATHOLOGIST COMMENT
[2017-10-05] MEDS ORDERED: Phytonadione 10 mg/mL 1ml amp SUBQ SCH (21:00)
--- NOTE | 2017-10-12 22:15 | Discharge Summary ---
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 The patient developed granulomatous colitis in 1988. She has never had Crohn's disease of the small intestine. In 1988 she underwent proctocolectomy with Freida ileostomy. In 1992 in [place] she underwent conversion of her conventional ileostomy to a Mulligan continent ileostomy. In 1994 in [place] she underwent repair of a pouch fistula. Approximately one year ago without any antecedent symptoms, she developed another fistula draining to the right of the stoma and inferior to the stoma. It drains a small amount of gas and fecal material and occasionally a large amount. She intubates her pouch frequently to try and control the fistula drainage. She used to intubate three times per day, but now at least six times. At the same time as she developed the onset of her fistula, she developed incontinence of stool and gas from her stoma. CT scan performed in her home [facility] in July 2017 revealed prolapse through the stoma and a stricture within the pouch. The patient took Humira starting in November 2016, but discontinued in mid July because it provided no benefit to her. MEDICATIONS: Occasional Imodium. ALLERGIES: Morphine causes severe pruritus and she is allergic to sulfa. OPERATIONS: Only the above including the finding of endometriosis of the right ovary in 1988. PHYSICAL EXAMINATION: GENERAL: The patient is 5 foot 3 inches, 123 pounds. ABDOMEN: Soft with a long midline scar. The stoma of the Mulligan pouch is in the right lower quadrant with complete prolapse or eversion of the nipple valve. There are two fistula tracts one at 6 o'clock just inferior to the stoma and one at 9 o'clock at the lateral angle. HOSPITAL COURSE: The patient was admitted and underwent insertion of a dual lumen PICC line and complete assessment, including bowel prep with concomitant IV hydration and continuous drainage of her Mulligan pouch. Her preoperative chest x-ray revealed bilateral pleural effusions, and her preoperative laboratory studies showed an albumin of 3.0. Her hemoglobin was 14, but her ferritin was low at 55, normal range 388. The patient was appropriately prepared and on 09/13/2017 was taken to surgery where it was found that the pouch could not be salvaged with a stricture in the mid pouch, complete prolapse of the valve, and scarring from the fistula. The small bowel was completely examined. There was only approximately 11 feet of small bowel remaining and although it had no sign of Crohn's disease, I felt that this precluded creating a new pouch because if it failed, she might have a short-bowel syndrome if it had to be resected. Accordingly, the pouch was resected and she underwent creation of a conventional Freida ileostomy on the left side of the abdomen. Postoperatively, the patient was maintained NPO with Dilaudid RN MANAGER for analgesia. She was very disappointed to lose her continent pouch, but understood it. Preop iron level was 22, range 50 to 175. She received Venofer 100 mg x10 days during her stay, a total of 1000 mg. In view of her abnormally low preoperative albumin and the extensive surgery, she was started on TPN. The patient developed some tachycardia and wheezing and Dr. Miles Stapleton was called for Pulmonology consultation. She had a slowly resolving ileus. Her white blood cell count fell to 1100. Hematology assessment was obtained from Dr. Lizeth Stout and it was felt that this was due to Unasyn and perhaps the Flagyl that she had been getting intravenously. In view of persistent, although intermittent respiratory symptoms, she underwent thoracentesis of the left chest with 1200 mL of output. Cytology was negative. Her leukopenia improved. She was started on a clear liquid diet on the sixth postoperative day and was seen by the wound ostomy continence nurse regarding her new ileostomy. The patient was slowly improving, but then her abdomen became somewhat distended with an emesis of [address] scan of abdomen and pelvis revealed a partial small bowel obstruction with some retroperitoneal lymphadenopathy. It was felt she had an early postoperative partial small bowel obstruction, but she had no further emesis, did not require a nasogastric tube, but was made NPO. Her white count jackie to 4300 and hemoglobin was 13.4. Her partial small bowel obstruction resolved and she was started back on a clear liquid diet, which was then advanced to a low-residue diet and TPN was decreased. She had good ileostomy output. She developed additional respiratory distress and had to be transferred to the definitive observation unit for enhanced monitoring. Chest x-ray revealed reaccumulation of moderate bilateral pleural effusions and a Rheumatology consultation with Dr. Reyes was obtained because of a positive VANDANA test. The patient had gradual return of her appetite and slowly able to eat. Review of the pathology report revealed no evidence of Crohn's disease in the continent ileostomy pouch, and the fistulae are likely due to decreased perfusion. The patient had persistent tachycardia. Echocardiogram was unremarkable as was electrocardiogram. The patient had bilateral thoracentesis to try and drain off as much fluid as possible. A CT angiogram of the chest revealed no evidence of pulmonary emboli, but there were pathologically enlarged mediastinal lymph nodes. The patient's brannon and sutures were removed and Steri-Strips applied and the incisions healed nicely. The TPN was discontinued and the PICC line was removed. White blood cell count was 3300 and hemoglobin 12.8. Albumin had fallen to 2.3. It was now up to 2.8. The patient continued to improve and was stable for discharge with all appropriate medical records provided with the need for follow up for mediastinal lymph node biopsy and pleural biopsy as the etiology of the bilateral effusions was still undetermined. The patient has normal BUN and creatinine throughout her stay, tolerating oral intake well. Her final laboratory studies showed white count of 2900, hemoglobin 12.3, and platelet count 208,000. Basic metabolic profile within normal limits. DISCHARGE DIAGNOSES: 1. 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 2. 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 3. History of granulomatous colitis. 4. Status post multiple abdominal operations. 4.1. Proctocolectomy and Freida ileostomy in 1988. 4.2. Mulligan continent ileostomy in 1992. 4.3. Laparotomy with repair of fistula of Mulligan continent ileostomy 1994 5. Bilateral pleural effusions and albumin of 3.0 on admission before surgery 6. Recurring bilateral pleural effusion with mediastinal lymphadenopathy of unknown etiology. 7. Positive VANDANA laboratory test. OPERATION PERFORMED ON THIS ADMISSION: Resection of Mulligan continent ileostomy with enterocutaneous fistula and valve prolapse, and creation of conventional Freida ileostomy. Dane Cancino M.D. DR: Jitendra JOB#: [id number] CC: [id number]
== END 2017-10-03 07:38 | disposition home or self-care (01) | DRG 330 ==
LOC: 3E 09:36 → 2W 09-25 17:49 → 3E 09-30 11:59
DX: K94.13 Enterostomy malfunction (principal); K63.2 Fistula of intestine; J90 Pleural effusion, not elsewhere classified; R64 Cachexia; E46 Unspecified protein-calorie malnutrition; D89.89 Other specified disorders involving the immune mechanism, not elsewhere classified; K56.7 Ileus, unspecified; Y83.3 Surgical operation with formation of external stoma as the cause of abnormal reaction of the patient, or of later complication, without mention of misadventure at the time of the procedure; K43.5 Parastomal hernia without obstruction or gangrene; Z87.19 Personal history of other diseases of the digestive system; Z87.891 Personal history of nicotine dependence; Z88.6 Allergy status to analgesic agent; Z88.2 Allergy status to sulfonamides; D72.819 Decreased white blood cell count, unspecified; R06.00 Dyspnea, unspecified; E61.1 Iron deficiency; R06.2 Wheezing; R00.0 Tachycardia, unspecified
CPT/HCPCS: 36415; 36569; 71010; 71250; 71275; 74177; 76937; 76942; 80048; 80053; 80076; 81001; 81003; 81025; 82607; 82728; 82962; 83540; 83550; 83615; 83735; 83880; 84100; 84478; 85007; 85025; 85060; 85379; 85610; 85651; 85730; 86039; 86140; 86160; 86225; 86431; 86703; 86803; 86850; 86900; 86901; 87070; 87116; 87205; 87517; 88104; 89051; 93005; 93306; 93970; 94003; 94150; 94640; 94664; 94760; J1815; J2250; J2405; J2765; J7620